=== PATIENT | female | born 1970 | race Caucasian/White ===

== ENCOUNTER → 2019-04-19 09:19 | Outpatient (CLI) | payer BC, SELFPAY ==
--- NOTE | 2019-04-19 09:20 | DI.US.S_ITS ---
PROCEDURE: US PERIPH VENOUS LOW EXTREM LT INDICATIONS: LEFT LOWER EXTREMITY EDEMA TECHNIQUE: Real-time imaging, as well as color and pulse Doppler interrogation, were performed of the lower extremity deep veins from the inguinal ligament to the popliteal fossa. COMPARISON: None. FINDINGS: The common femoral, femoral and popliteal veins are normally compressible, and free of intraluminal thrombus. Color and pulse Doppler demonstrate normal phasic intraluminal flow. There is normal augmentation response to distal compression maneuver. Medial ankle edema. Fluid collection at the level of the ankle measures 2.3x1.6 x 0.7 cm. IMPRESSION: No evidence of deep venous thrombosis. Nonspecific edema and fluid collection in the ankle soft tissues. Please correlate clinically and if the patient's pain or other symptoms persist, consider further evaluation with MRI Dictated by: Jose Fong M.D. on 04/19/2019 at 13:10 Approved by: Jose Fong M.D. on 04/19/2019 at 13:13
== END ==
PROVIDERS: PCP Internal Medicine; Visit Provider Physical Medicine & Rehabilitation
DX: R60.0 Localized edema (principal)
CPT/HCPCS: 93971

== ENCOUNTER → 2019-05-25 19:26 | Outpatient (CLI) | payer BC, SELFPAY ==
--- NOTE | 2019-05-25 19:30 | DI.RAD.S_ITS ---
PROCEDURE: XR ANKLE LT MIN 3V INDICATIONS: Left medial malleolus pain, ankle pain. TECHNIQUE: 3 views of the ankle were acquired. COMPARISON: [facility], CR, XR TIBIA FIBULA LEFT, 08/08/2018, 13:55. FINDINGS: Bones: No fractures or dislocations. Irregularity of the medial cortex of the distal fibular and lateral cortex of the distal tibia, suggesting old distal tibial fibular syndesmotic injury. Ankle mortise is normally aligned. No suspicious bony lesions. There is a large os trigonum. Posterior calcaneal spurring at the Achilles tendon insertion. Soft tissues: Small tibiotalar joint effusion. Achilles tendon appears normal. Soft tissue swelling. IMPRESSION: 1. No fracture or dislocation. If clinical symptoms persist or clinical suspicion for pathology is high, MRI is suggested for further evaluation. 2. Large os trigonum. 3. 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 Dictated by: Nehemiah Robertson M.D. on 05/25/2019 at 20:02 Approved by: Nehemiah Robertson M.D. on 05/25/2019 at 20:06
== END ==
PROVIDERS: PCP Internal Medicine; Visit Provider Nurse Practitioner
DX: M25.572 Pain in left ankle and joints of left foot (principal); R29.898 Other symptoms and signs involving the musculoskeletal system; M77.32 Calcaneal spur, left foot; M25.472 Effusion, left ankle
CPT/HCPCS: 73610

== ENCOUNTER → 2019-07-18 19:23 | Outpatient (CLI) | payer BC, SELFPAY ==
--- NOTE | 2019-07-18 19:25 | DI.MRI.S_ITS ---
PROCEDURE: MR ANKLE LT WO CON INDICATIONS: Pain and swelling TECHNIQUE: Noncontrast sagittal T1 spin echo and T2 fast spin echo with fat saturation, axial proton density fast spin echo and T2 fast spin echo with fat saturation, coronal T1 spin echo and T2 fast spin echo with fat saturation through the ankle/hindfoot. COMPARISON: None. FINDINGS: Image quality: Excellent. Bones and joints: Edema is noted throughout mid to posterior portion of talus and anterior superior portion of calcaneus. No discrete fracture line is seen. Finding likely represent bony contusion versus stress related changes. Osteoarthritic changes are noted involving tibiotalar joint and calcaneocuboid joint. No hindfoot coalitions. No osteochondral injuries of the talar dome. Small amount of joint effusion within the tibiotalar joint and subtalar joint is seen. No gross intra-articular loose body. Soft tissue edema surrounding ankle joint is seen particularly over medial and lateral malleoli. Medial structures: The posterior tibialis, flexor digitorum longus, and flexor hallucis longus tendons are thickened with a moderate to large amount of fluid distending tendon sheaths consistent with tenosynovitis. No evidence of tendon rupture. 1 cm possible intra-articular loose body in The posterior tibial neurovascular bundle appears normal within the tarsal tunnel, without extrinsic mass effect. Significant thickening and edema involving the deltoid ligament and spring ligament complex is seen suggestive of ligament sprain/partial thickness tear. Lateral structures: The anterior talofibular, calcaneofibular, and posterior talofibular ligaments appear mildly thickened suggestive of low-grade lateral ankle ligament sprain. More superiorly, the anterior and posterior tibiofibular ligaments appear intact, as is the intermalleolar ligament. The tibiofibular syndesmosis is normal in width at 2 mm or less. The peroneus longus and brevis tendons demonstrate normal location and morphology. Adjacent bony peroneal tubercle and retrotrochlear prominence are normal in size. The sinus tarsi demonstrates normal fatty signal, without edema, fibrosis, or cyst formation. Visualized sinus tarsi components (cervical ligament, interosseous talocalcaneal ligament, roots of the inferior extensor retinaculum) appear normal. The calcaneonavicular and calcaneocuboid components of the bifurcate ligament appear intact. The dorsal calcaneocuboid ligament appears intact. Anterior structures: The tibialis anterior, extensor hallucis longus, and extensor digitorum longus tendons appear intact. The dorsal talonavicular ligament appears intact. Posterior and plantar structures: Achilles tendon is intact. Medial and lateral bands of the plantar fascia are of normal thickness. No abductor digiti quinti muscle atrophy to suggest Soto neuropathy. IMPRESSION: 1. Significant soft tissue swelling and edema around ankle joint. Suggestion of bony contusion versus stress related changes involving talus and calcaneus as above. No fracture or dislocation. 2. Moderate tenosynovitis involving the flexor tendons with possible loose body posterior to flexor digitorum longus tendon possibly within the tendon sheath. No evidence of ankle tendon rupture. 3. Sprain/moderate grade partial-thickness tear involving medial ankle ligaments. Low-grade sprain/partial thickness tear involving lateral ankle ligaments. Dictated by: Ben Abdullahi M.D. on 07/19/2019 at 11:03 Approved by: Ben Abdullahi M.D. on 07/19/2019 at 12:03
--- NOTE | 2019-07-18 19:25 | DI.MRI.S_ITS ---
PROCEDURE: MR KNEE LT WO CON INDICATIONS: Pain and swelling TECHNIQUE: Noncontrast sagittal PD fast spin echo and T2 fast spin echo with fat saturation, sagittal 3-D FLASH with fat saturation; coronal T1 spin echo and PD fast spin echo with fat saturation, and axial PD fast spin echo with fat saturation through the knee. COMPARISON: None. FINDINGS: Image quality: Excellent. Menisci: Medial meniscus intact. Lateral meniscus intact. Cruciate ligaments: Anterior cruciate ligament appears intact. Posterior cruciate ligament appears intact. Medial structures: The medial collateral ligament appears intact. Semimembranosus tendon appears intact. Visualized portions of the pes anserinus tendons appear normal. No abnormal bursal fluid. Lateral structures: The lateral collateral ligament intact. Biceps femoris tendon appears intact. Popliteus tendon grossly unremarkable. Iliotibial band appears intact. Anterior structures: Quadriceps tendon intact. Medial and lateral patellofemoral ligaments intact. There is mild patellar tendinopathy. Prepatellar and superficial infrapatellar subcutaneous edema/fluid. Fluid is present within the deep infrapatellar recess Bones and cartilage: No focal marrow contusion or discrete low signal fracture line. Within the medial compartment, no focal cartilage defect Within the lateral compartment, fissuring and signal changes involving central tibial cartilage. Femoral cartilage appears grossly intact Within the patellofemoral compartment, diffuse partial-thickness loss of the patellar cartilage. Underlying subchondral cystic change and marrow edema. No focal trochlear cartilage defect. Joint space: Small joint effusion. Large partially ruptured Zamora cyst measuring 5.5 cm in the cephalocaudad dimension No specific evidence of intra-articular loose body. IMPRESSION: Large partially ruptured Zamora's cyst. Small joint effusion Patellar tendinopathy with adjacent fluid and edema Degenerative joint disease as above, most pronounced in the patellofemoral compartment Dictated by: Jose Fong M.D. on 07/19/2019 at 8:46 Approved by: Jose Fong M.D. on 07/19/2019 at 9:00
--- NOTE | 2019-07-18 19:25 | DI.MRI.S_ITS ---
PROCEDURE: MR LUMBAR SPINE WO CON INDICATIONS: umbar radiculopathy TECHNIQUE: Noncontrast sagittal T1 spin echo and T2 fast echo, sagittal STIR, axial T1 and T2 fast spin echo through the lumbar spine. In cases with scoliosis, additional coronal T2 fast spin echo may be performed. COMPARISON: None. FINDINGS: Image quality: Excellent. Alignment and Curvature: There is normal bony alignment. Bone Marrow: Marrow is of normal overall signal. No acute vertebral body compression fractures. Spinal Cord: Conus medullaris terminates at the L1 level. Visualized cord demonstrates normal signal and size. Paraspinous Soft Tissues: No paravertebral masses. L1-L2: Normal appearance. L2-L3: Normal appearance except for a mild degree of degenerative disc height reduction and a small posterior transverse disc bulge. This does not produce significant spinal stenosis, and there is facet osteoarthritis there is symmetric bilaterally and mild in severity, without secondary foraminal stenosis.. L3-L4: Mild to moderate degenerative disc disease, disc height reduction and disc desiccation are greater on the right than the left. A posterior disc bulge also is greater on the right, and facet osteoarthritis is moderate bilaterally. These factors combine to produce a moderately severe right and a mild left foraminal stenosis, and slight spinal stenosis. A disc herniation is not associated. L4-L5: Moderately severe degenerative disc disease with a posterior broad-based transverse disc bulge/protrusion. There is asymmetric facet osteoarthritis, left greater than right, at this level. This combines with a disc protrusion to produce moderately severe left and mild to moderate right foraminal stenosis. L5-S1: Mild degenerative disc disease with a small posterior broad-based disc bulge. Facet osteoarthritis is moderate on the left and mild to moderate on the right. There is asymmetric moderate left foraminal stenosis, and mild right foraminal stenosis at this level. IMPRESSION: The degenerative disc disease present is moderate in severity overall, and best seen over the lower half of the LS spine. Multilevel foraminal stenosis also is present, generally asymmetric, with likelihood of bilateral radiculopathy has resolved. A disc herniation is not found. No recent trauma is suspected. Dictated by: Layton Ortiz M.D. on 07/19/2019 at 12:38 Approved by: Layton Ortiz M.D. on 07/19/2019 at 12:45
== END ==
PROVIDERS: PCP Internal Medicine; Referring Provider Physical Medicine & Rehabilitation; Visit Provider Physical Medicine & Rehabilitation
DX: M51.16 Intervertebral disc disorders with radiculopathy, lumbar region (principal); M51.17 Intervertebral disc disorders with radiculopathy, lumbosacral region; M48.061 Spinal stenosis, lumbar region without neurogenic claudication; M48.07 Spinal stenosis, lumbosacral region; S93.492A Sprain of other ligament of left ankle, initial encounter; M25.572 Pain in left ankle and joints of left foot; M79.672 Pain in left foot; M25.562 Pain in left knee; M17.12 Unilateral primary osteoarthritis, left knee; M66.0 Rupture of popliteal cyst; M25.462 Effusion, left knee; M25.472 Effusion, left ankle; M79.89 Other specified soft tissue disorders; M65.872 Other synovitis and tenosynovitis, left ankle and foot
CPT/HCPCS: 72148; 73721

== ENCOUNTER 2019-07-26 02:37 | Emergency (ER) | payer BC, SELFPAY ==
[2019-07-26 02:57] VITALS: BP 137/92; PULSE 96; RESP 19; TEMP 37.1; O2SAT 100; BMI 28.8
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
[2019-07-26] MEDS: hydrOXYzine pamoate 25 MG CAPSULE 50 MG PO (03:19)
[2019-07-26] MEDS: KETOROLAC 60 MG/2 ML VIAL 30 MG IM (03:19)
[2019-07-26] MEDS: GABAPENTIN 100 MG CAPSULE PO (03:19)
[2019-07-26 04:54] VITALS: BP 125/78; PULSE 86; RESP 15; O2SAT 97
== END 2019-07-26 04:56 | disposition home or self-care (01) ==
PROVIDERS: Emergency Provider Emergency Medicine; PCP Internal Medicine
DX: M66.0 Rupture of popliteal cyst (principal); G62.9 Polyneuropathy, unspecified; M25.572 Pain in left ankle and joints of left foot
CPT/HCPCS: 96372; 99283; 99284; J1885

== ENCOUNTER → 2019-08-07 06:56 | Outpatient (CLI) | payer BC, SELFPAY ==
--- NOTE | 2019-08-07 | DI.MRI.S_ITS ---
PROCEDURE: MR ANKLE LT WO/W CON INDICATIONS: MASS OF LEFT ANKLE TECHNIQUE: Noncontrast sagittal T1 spin echo and T2 fast spin echo with fat saturation, axial proton density fast spin echo and T2 fast spin echo with fat saturation, axial T1 spin echo with fat saturation, coronal T1 spin echo and T2 fast spin echo with fat saturation through the ankle/hindfoot. Post-contrast axial, coronal, and sagittal T1 spin echo with fat saturation through the ankle/hindfoot. COMPARISON: None. FINDINGS: Image quality: Excellent. Bones and joints: No suspicious osseous enhancement. No bone marrow contusions or fractures. No hindfoot coalitions. No osteochondral injuries of the talar dome. Small tibiotalar joint effusion. Prominent os trigonum incidentally noted Medial structures: The posterior tibialis, flexor digitorum longus, and flexor hallucis longus tendons are intact. Deep to the flexor retinaculum, there is a large cystic appearing structure with no internal enhancement measuring approximately 1.7 x 1.4 cm on axial image 31 series 4. This is in close proximity to the posterior tibial nerve and cannot exclude impingement. The deep layer (anterior and posterior tibiotalar ligaments) and superficial layer (tibionavicular, tibiospring, and tibiocalcaneal ligaments) of the deltoid ligament appear normal. The spring ligament components (superomedial calcaneonavicular, medioplantar oblique calcaneonavicular, and inferoplantar longitudinal ligaments) are intact. Lateral structures: The anterior talofibular, calcaneofibular, and posterior talofibular ligaments appear intact. More superiorly, the anterior and posterior tibiofibular ligaments appear intact, as is the intermalleolar ligament. The tibiofibular syndesmosis is normal in width at 2 mm or less. The peroneus longus and brevis tendons demonstrate normal location and morphology. Adjacent bony peroneal tubercle and retrotrochlear prominence are normal in size. The sinus tarsi loss of the normal normal fatty signal and a normal sinus tarsi structures not well visualized. There is T2 hyperintensity and edema, and findings suggest sinus tarsi syndrome. Mild adjacent subtalar joint degeneration. Anterior structures: The tibialis anterior, extensor hallucis longus, and extensor digitorum longus tendons appear intact. The dorsal talonavicular ligament appears intact. Posterior and plantar structures: Achilles tendon is intact. Medial and lateral bands of the plantar fascia are of normal thickness. No abductor digiti quinti muscle atrophy to suggest Soto neuropathy. IMPRESSION: Nonenhancing cystic-appearing 1.7 cm mass at the medial ankle deep to the flexor retinaculum, this could represent large synovial cyst related to subtalar joint degeneration, versus ganglion cyst. The posterior tibial nerve closely abuts the posterior margin of the structure and cannot exclude impingement. This is in the region of the bifurcation. Mild edema present within the abductor hallucis, and flexor digitorum brevis muscles raising possibility of denervation (medial plantar nerve). No definite muscle atrophy is seen. Signal changes within the sinus tarsi suggestive of sinus tarsi syndrome. Small tibiotalar joint effusion Dictated by: Jose Fong M.D. on 08/07/2019 at 10:06 Approved by: Jose Fong M.D. on 08/07/2019 at 10:26
== END ==
PROVIDERS: PCP Internal Medicine; Referring Provider Orthopaedic Surgery Foot and Ankle Surgery; Visit Provider Orthopaedic Surgery Foot and Ankle Surgery
DX: R22.42 Localized swelling, mass and lump, left lower limb (principal)
CPT/HCPCS: 73723

== ENCOUNTER 2019-08-08 07:55 | Day surgery (SDC) | payer BC, SELFPAY ==
[2019-08-07 14:52] VITALS: BMI 31.9
[2019-08-08] VITALS (11 sets, daily range): BP systolic 109–142; BP diastolic 67–83; PULSE 77–98; RESP 8–16; TEMP 35.6–36.8; O2SAT 90–98; BMI 31.9
--- NOTE | 2019-08-08 | PATH_ITS ---
[facility] Accession Number: [id number] . 01 Material submitted: . ganglion cyst - LEFT ANKLE GANGLION CYST . 01 Diagnosis: Left Ankle, Biopsy: Ganglion cyst. [facility] 08/13/2019 1614 Local . 01 Comment: Colloidal iron stain highlights with positive staining the mucin accummulation. This case was reviewed with Dr. Cheyanne Romero, who concurs. . 01 Electronically signed: . Mariela Stanley MD, Dermatopathologist NPI- [id number] . 01 Gross description: . Received in formalin, labeled L ankle ganglion cyst, is a pale yellow rubbery nodule (1.5 x 1.4 x 1.0 cm) with a pale yellow semi-translucent cystic cut surface. The resection margin is inked blue. Manager [employer] serial sections submitted in cassette A1. ([id number]) /MRV 08/09/2019 1204 Local . 01 Pathologist provided ICD-10: L98.9 . 01 CPT . 216764, [id number] Performed at: [address] [facility], [place], [place] [id number] MD Fred Grant MD Phone: [phone]
--- NOTE | 2019-08-08 08:48 | P.OP_ITS ---
Operative Date/Time/Diagnoses Date of procedure: 08/08/19 Time of procedure: 10:35 Pre-op diagnosis: Tarsal tunnel syndrome left G57.52 Mass of left ankle R22.42 Post-op diagnosis: same Procedure & Clinicians Procedure: 1. Tarsal tunnel release left CPT code 38340 2. Excision subfascial mass less than 5 cm left ankle CPT code 17923 Same procedure as scheduled: Yes Indications: The patient is a 48-year-old female with left ankle and medial and plantar foot pain nonresponsive to conservative treatment. Patient also has a swelling and mass in the location of the tarsal tunnel. This was evaluated on MRI with and without contrast was a nonenhancing cystic appearaning approximately 2 cm mass at the medial ankle deep to the flexor retinaculum abutting the posterior tibial nerve. The patient was indicated for excisional biopsy of the mass and decompression of the tarsal tunnel. The risks and benefits and alternatives were discussed in detail. These included but were not limited to infection, persistent pain, DVT, pulmonary embolism, nerve vessel or tendon injury or need for additional procedures. Consent was signed in the of fice. No guarantees were made. We discussed postoperatively she would be nonweightbearing for the initial 2-3 weeks while the incision is healing. This would 1st be in a splint and then followed by a boot. She would start weight- bearing once the sutures are removed and would start therapy. Postoperatively pain control would be primarily with anti-inflammatories a small narcotic prescription for breakthrough pain and gabapentin. Discussed the importance of elevation for the 1st 2 weeks after surgery to aid with swelling and pain control. Surgeon: Marjorie Hutchinson Click Yes if Unassisted: Yes Anesthesia Type: General and Local Operative Notes Findings: Approximately 1.5x1.5cm mass well circumscribed, multi lobe, clear gelatinous fluid consistent with ganglion cyst. Track down to medial subtalar joint Closure Type: primary Specimen(s): other (Mass sent to pathology) Prosthetic devices, grafts, tissues, transplants, or devices: None Applied: other (Splint) Estimated Blood Loss (mL): 10 Blood products transfused: none Tourniquet time (min): 56 Procedure in detail: The patient was seen in the preoperative area the site of surgery was marked. After confirming written informed consent the patient was taken to the operating room and placed supine on operating room table. General endotracheal anesthesia was obtained. A tourniquet was placed on the upper aspect of the thigh and this was well-padded. All bony prominences were well padded. An SCD was placed on the contralateral leg. Patient's operative leg was then prepped and draped in the standard sterile fashion. A formal time-out procedure was performed confirming the patient's side and site of surgery and administration of appropriate preoperative antibiotics. All were in agreement. Exsanguination with an Esmarch was undertaken the tourniquet was inflated to 250 mm of mercury. That time attention was directed to the medial aspect of the left ankle in the tarsal tunnel. Midpoint between the border of the medial malleolus and the medial border of the Achilles tendon was marked. Medial edge of the heel at the soft spot was palpated and marked. The incision was marked over the skin for the course of the tibial nerve. This started approximately 4 cm proximal to the medial malleolus and extended distally approximately 1 cm posterior to the tibia. Distally at the level of the medial malleolus the incision curved anteriorly and then plantar to the soft spot. Sharp dissection was taken through the skin. The incision was carefully deepened bluntly through the subcutaneous tissues to expose the Bill fashion the flexor retinaculum. Dissection was focused proximally 1st. Under loupe magnification, the Bill fascia was opened. Tibial nerve was identified and followed as it coursed under the flexor retinaculum. The neurovascular bundle was identified and protected. The nerve was decompressed proximally and distally with care to protect the cutaneous branches. The posterior tibial nerve proper just proximal to the level of the bifurcation was flattened against the posterior edge of the ganglion cyst. Additionally the medial plantar branch was flattened distally under the mass as the bifurcation point lead with the medial plantar branch diving under the ganglion mass into its distal tunnel. Calcaneal branch was identified and protected. Superficial fascia of the abductor hallucis muscle was released and the muscle was retracted exposing the deep abductor hallucis fascia over the lateral plantar tunnel. This was carefully released completely. Attention was turned to decompress the medial plantar tunnel and its roof was released and the septum between the lateral and medial plantar nerve was identified and released. [place] elevator was again used to follow the tibial nerve and the branches confirming complete nerve decompression. Mass excision: Approximately 2 cm multi lobular mass consistent with ganglion cyst was demonstrated just distal to the medial malleolus within the tarsal tunnel. The posterior tibial nerve immediately abutted this posteriorly and then this was at the bifurcation point where the medial plantar nerve branch dove under the ganglion mass to its trajectory. A therefore there was flattening and pressure affects on the tibial nerve at both the main posterior tibial nerve branch at the bifurcation posteriorly and at the medial plantar branch distally. Meticulous dissection was taken to decompress and release adhesions from the tibial nerve around the ganglion cyst. Domenico amount of gelatinous fluid was expressed from the cyst during excision. The cyst was carefully from the surrounding soft tissues and traced back down to the stalk from the medial subtalar joint. This was then removed. The removed mass was measured was approximately 1.5 x 1.5 cm however this was larger in situ prior to partial decompression decompression. Additionally the tendon sheath for the deep FHL distally was released and tenosynovitis was decompressed. Once the mass was removed the remainder of the medial plantar and lateral plantar nerve branches of the tibial nerve were fully decompressed in their tunnels. Again as described above the abductor hallucis fascia was released and the septum between the medial and lateral plantar tunnels was also decompressed. Complete release was completed. Once this was completed the incision was irrigated with saline. The tourniquet was released. Hemostasis was obtained. The incision was then repaired in layers using 4 0 Monocryl and 3 O nylon. The incision was infiltrated with local anesthetic. Xeroform gauze was placed. A bulky dressing and posterior splint was then applied. All counts were correct. The patient was woken from anesthesia and taken to recovery room in good condition. There were no immediate complications from this procedure. Complications: none Post-operative Condition: stable Disposition: PACU Plan for aftercare: Nonweightbearing in splint 2-3 weeks well incision is healing. Take aspirin 325 mg daily for DVT prophylaxis starting postop day 1 while she is nonweightbearing. Postoperative pain control was be with ibuprofen 800 mg 3 times a day Tylenol 500 mg Q 6 hours, oxycodone 5 mg up to Q 4 hours but only used for breakthrough pain and gabapentin 300 mg t.i.d.. She will keep the splint clean dry and intact. Follow-up as scheduled
[2019-08-08] MEDS: ACETAMINOPHEN 325 MG TABLET 975 MG PO (08:57)
[2019-08-08] MEDS: SCOPOLAMINE 1 PATCH TOP (08:58)
[2019-08-08] MEDS: LACTATED RINGERS 1,000 ML 42 ML IV ×2 (09:00→11:55)
[2019-08-08] MEDS: GABAPENTIN 300 MG CAPSULE PO (10:12)
[2019-08-08] MEDS: MIDAZOLAM 2 MG/2 ML VIAL IV (10:12)
--- NOTE | 2019-08-08 10:13 | SUR.PREOP ---
PT REPORTS OK TO HAVE GABAPENTIN, JUST MAKES ME NG. PT TAKEN DIRECTLY INTO THE OR AFTER IV VERSED GIVEN. PT ALERT AND TALKING TO RN.
[2019-08-08] MEDS: CEFAZOLIN 2 GM/100 ML FROZ.PIGGY IV (10:17)
--- NOTE | 2019-08-08 10:41 | SUR.OPER ---
Supine on padded OR bed, head on pillow, arms secured on padded arm boards at <90 degrees abduction, legs uncrossed, left leg is in frog position, bumped with blankets and under control of surgeon, safety belt at thigh, tape over blanket over right lower leg.
[2019-08-08] MEDS: BUPIVACAINE 0.25% W/ EPI 30 ML VIAL INJ (10:51)
[2019-08-08] MEDS: hydrOXYzine pamoate 25 MG CAPSULE PO (12:23)
[2019-08-08] MEDS: OXYCODONE IR 5 MG TABLET PO (12:23)
--- NOTE | 2019-08-08 12:27 | PM.PREOP ---
Pre-operative Note Interval Note History & Physical reviewed/Exam performed by Physician: Yes Changes to H&P: No H&P completed within 30 days and has changed as indicated here:: later enter please not full H&P done less than 24 hrs ago in clinic as well
--- NOTE | 2019-08-08 12:43 | SUR.PHASEI ---
Patient cannot feel when I touch operative foot. Gave patient oral pain medication for c/o 7/10 pain to operative foot. Tolerating po. Patient started crying in recovery and requested curtains closed.
--- NOTE | 2019-08-08 13:23 | SUR.PHASEII ---
Discharge instructions given to patient and family. Patient anxious and tearful. Advised patient to take her pain medication as directed and to elevate leg at home. Pointed out the specific instructions to patient via paperwork provided by Dr Hutchinson. Tolerating gingerale without difficulty.
--- NOTE | 2019-08-08 13:29 | SUR.PHASEII ---
All belongings returned to patient. RIBBON HANKING MACHINE OPERATOR assisting patient with getting dressed for discharge.
== END 2019-08-08 13:30 | disposition home or self-care (01) ==
PROVIDERS: PCP Internal Medicine; Referring Provider Internal Medicine; Visit Provider Orthopaedic Surgery Foot and Ankle Surgery
PROC: (CPT 28035; principal; 2019-08-08 09:45)
DX: G57.52 Tarsal tunnel syndrome, left lower limb (principal); M67.472 Ganglion, left ankle and foot; F41.9 Anxiety disorder, unspecified; F17.210 Nicotine dependence, cigarettes, uncomplicated
CPT/HCPCS: 27619; 28035; J0690; J1100; J1170; J1885; J2250; J2405; J2704

== ENCOUNTER 2019-08-17 15:26 | Emergency (ER) | payer BC, SELFPAY ==
--- NOTE | 2019-08-17 15:41 | DI.US.S_ITS ---
PROCEDURE: PERIP VENOUS LOW EXTREM LT INDICATIONS: LEFT CALF PAIN. SURGERY 2 WEEKS AGO TECHNIQUE: Real-time imaging, as well as color and pulse Doppler interrogation, were performed of the lower extremity deep veins from the inguinal ligament to the popliteal fossa. COMPARISON: [facility], , [facility] VENOUS LOW EXTREM LT, 04/19/2019, 9:31. FINDINGS: The common femoral, femoral and popliteal veins are normally compressible, and free of intraluminal thrombus. Color and pulse Doppler demonstrate normal phasic intraluminal flow. There is normal augmentation response to distal compression maneuver. IMPRESSION: No DVT found. Dictated by: Layton Ortiz M.D. on 08/17/2019 at 16:43 Approved by: Layton Ortiz M.D. on 08/17/2019 at 16:44
[2019-08-17 15:49] VITALS: BP 135/73; PULSE 88; RESP 18; TEMP 36.6; O2SAT 97; BMI 32.2
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
[2019-08-17 17:09] VITALS: BP 108/61; PULSE 75; RESP 16; O2SAT 98
== END 2019-08-17 17:21 | disposition home or self-care (01) ==
PROVIDERS: Emergency Provider Nurse Practitioner Family; PCP Internal Medicine
DX: M79.605 Pain in left leg (principal); Z98.890 Other specified postprocedural states
CPT/HCPCS: 93971; 99283

== ENCOUNTER 2019-09-02 18:42 | Emergency (ER) | payer BC, SELFPAY ==
[2019-09-02 18:53] VITALS: BP 133/68; PULSE 88; RESP 14; TEMP 36.8; O2SAT 98
[2019-09-02 19:37] LABS: Add Manual Diff / Slide Review NO; Basophils Absolute Auto 100 /uL (0-100); Eosinophils Absolute Auto 100 /uL (0-450); Eosinophils Percent Auto 1.3 % (2-4); Lymphocytes Absolute Auto 1900 /uL (1100-4500); Lymphocytes Percent Auto 34.6 % (25-40); Mean Corpuscular HGB Conc 33.3 % (30-36); Mean Corpuscular Hemoglobin 29.8 PG (26-34); Mean Corpuscular Volume 89.4 fL (80-100); Monocytes Absolute Auto 400 /uL (0-900); Monocytes Percent Auto 6.7 % (3-14); Neutrophils Absolute Auto 3200 /uL (1500-7000); Neutrophils Percent Auto 56.4 % (50-75); Platelet Count 352 X10^3/uL (150-400); Red Blood Cell Count 3.69 X10^6/uL (4.0-5.2); Red Cell Distribution Width 13.7 % (11.6-14.8); White Blood Cell Count 5.6 X10^3/uL (4.5-11.0)
[2019-09-02 19:57] LABS: Alanine Aminotransferase 24 IU/L (<35); Albumin 4.3 g/dL (3.5-5.0); Albumin Globulin Ratio 1.4 (1.0-2.8); Alkaline Phosphatase 71 U/L (38-126); Aspartate Aminotransferase 29 IU/L (14-36); BUN Creatinine Ratio 19.5 (6-22); Bilirubin Total 0.3 mg/dL (0.2-1.3); Blood Urea Nitrogen 15 mg/dL (7-17); Calcium 9.2 mg/dL (8.4-10.2); Carbon Dioxide 28 mmol/L (22-32); Chloride 103 mmol/L (98-107); Estimated Glomerular Filt Rate > 60.0 mL/min (>60); Glucose 95 mg/dL (70-100); HEMOLYSIS < 15 (0-50); Potassium 3.9 mmol/L (3.4-5.1); Sodium 138 mmol/L (137-145); Total Protein 7.3 g/dL (6.3-8.2)
[2019-09-02 20:00] LABS: C-Reactive Protein Quant < 0.5 mg/dL (<1.0)
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
[2019-09-02 20:16] LABS: Erythrocyte Sedimentation Rate 8 MM/HR (0-20)
[2019-09-02 20:49] VITALS: BP 116/72; PULSE 73; RESP 20; O2SAT 97
== END 2019-09-02 21:04 | disposition home or self-care (01) ==
PROVIDERS: Emergency Provider Nurse Practitioner Family; PCP Internal Medicine
DX: T81.40XA Infection following a procedure, unspecified, initial encounter (principal)
CPT/HCPCS: 36415; 80053; 83735; 85025; 85651; 86140; 87070; 87075; 87205; 99282; 99283

== ENCOUNTER 2019-09-04 14:54 | Inpatient (IN) | payer BC, SELFPAY ==
[2019-09-04] VITALS (15 sets, daily range): BP systolic 94–140; BP diastolic 43–75; PULSE 71–83; RESP 12–20; TEMP 36.2–37.2; O2SAT 14–98; BMI 35.3
--- NOTE | 2019-09-04 15:13 | PM.PREOP ---
Pre-operative Note Interval Note History & Physical reviewed/Exam performed by Physician: Yes Changes to H&P: No
[2019-09-04] MEDS: LACTATED RINGERS 1,000 ML 42 ML IV ×2 (15:15→18:00)
[2019-09-04] MEDS: GABAPENTIN 300 MG CAPSULE PO (15:19)
[2019-09-04] MEDS: ACETAMINOPHEN 325 MG TABLET 975 MG PO ×2 (15:19→20:45)
[2019-09-04] MEDS: OXYCODONE IR 5 MG TABLET PO ×3 (15:19→19:36)
--- NOTE | 2019-09-04 15:37 | P.OP_ITS ---
Operative Date/Time/Diagnoses Date of procedure: 09/04/19 Time of procedure: 15:57 Pre-op diagnosis: Dehiscence surgical wound left ankle Surgical site infection Post-op diagnosis: other (Dehiscence surgical wound left ankle, hematoma) Procedure & Clinicians Procedure: Irrigation debridement skin muscle fascia 20 sq cm or less, left ankle CPT code 65771 Application wound VAC sponge cpt 06885 Same procedure as scheduled: Yes Indications: Patient has wound dehiscence and epidermolysis around her surgical site and incision she has swelling and erythema consistent with likely site infection. She has had approximately 3 days oral antibiotics with persistent swelling. She has been indicated for operative debridement irrigation and miriam cement of wound VAC. She has been counseled on the risks benefits and alternatives to treatment. Risks benefits and alternatives were explained to the patient detail including but not limited to a recurrent infection need for additional procedures and debridements need for serial wound debridements for wound VAC changes or wound care, persistent pain, additional wound healing problems, DVT pulmonary embolism stroke paralysis . The patient has elected to proceed with surgery. Consent was signed in the office today. Plan will be for operative debridement admit for IV antibiotics and transition to outpatient wound care likely with home wound VAC. Surgeon: Marjorie Hutchinson Click Yes if Unassisted: Yes Anesthesia Type: General Operative Notes Findings: Medial ankle surgical incision with wound dehiscence and wound edge epidermolysis and necrosis. There is scant then drainage distally. No gross purulence but, significant devitalized wound edges and dehiscence with small amount of erythema at the incision margins mild swelling. No ascending cellulitis. Once wound is reopened there is well-formed/coagulated old hematoma evacuated. Incisions site measures approximately 8 cm Closure Type: non-primary Specimen(s): other (Deep Tissue for culture) Applied: other (Wound VAC sponge) Estimated Blood Loss (mL): 10 Blood products transfused: none Tourniquet time (min): 12 Procedure in detail: Patient was seen in the preoperative area the site of surgery was marked informed consent confirmed. Patient was then brought back to the operating room by the anesthesia team. Patient under went endotracheal intubation under the strict airborne precautions given the covid 19 pandemic (this patient does not have symptoms or a known positive or negative test). Once the established protocol amount of time was waited the remainder of the staff entered the room, All bony prominences were well padded. A well-padded thigh tourniquet was placed. Surgical site was prepped and draped in the standard sterile fashion. Formal time-out procedure was performed confirming the patient's side and site of surgery presence of informed consent. In this case preoperative antibiotics were administered at the patient had been on antibiotics outpatient as well and had a pre-existing a culture pending. Attention was turned to the left lower extremity. [place] exsanguination was utilized and the tourniquet on the thigh raised to 250 mm of mercury this stayed elevated for 12 minutes was let down debridement hemostasis was achieved with pressure no cautery was used.. The surgical site was inspected there was the medial incision with wound edge necrosis devitalized tissue with dehiscence primarily at the distal half. There is no gross purulence. There is minimal erythema at the wound edges and mild swelling. There is no ascending cellulitis. Was congealed hematoma in the wound was evacuated. No purulence or abscess was found. Deep tissue and cultures were obtained and sent for microbiology. Wound edges were debrided back to good bleeding tissue. Curettes and rongeurs were used. All non vitalized tissue was debrided. No obvious abscess or purulence was encountered. Wound was irrigated with 3 L normal saline with pulsatile lavage. Utilizing gentle pressure from the hands it was noted that the proximal 3/4 of the incision approximated quite easily and was thought to be amenable to primary closure. A 2 0 PDS suture was attempted but cut through the tissue easily therefore this layer was abandoned. 3 O nylon sutures were placed in a trauma suture fashion to approximate the proximal 3/4 of the incision. In between these 2 O and 3 0 nylons were placed in simple and vertical mattress fashion approximating the wound without tension and no blanching of the skin edges. The distal 2 cm of the wound was a circular area that was not amenable to primary closure. Decision was made for wound VAC use at the distal end. Once thorough proximal part of the incision was closed the 3 trauma touch style sutures were removed. The incision remained well approximated without excess tension. Attention was turned to the distal aspect of the wound this measured 2 cm x 1 cm x 1 cm Deep. The small wound VAC sponge was opened. Wound VAC sponge was placed within the open part of the wound. Adaptic was placed over the closed part of the incision and then the wound sponge was stretched over the Adaptic for incisional VAC over the closed aspect of the incision. The periwound area was lined with Mastisol and the dressing film. And the wound VAC application was completed. This was hooked up to the VAC and suction to 125 mm of mercury was obtained. Suction was obtained with a good seal. A padded dressing was applied. Surgical procedure finished and the surgical staff exited the room. Anesthetic was terminated and again the airborne precaution extubation procedure was completed. Patient was then recovered in the room and taken to the PACU following the protocol in good condition. There no immediate complications from this procedure. Complications: none Post-operative Condition: stable Disposition: Acute Care Plan for aftercare: Admit to inpatient for IV antibiotics and treatment with wound VAC. Will have scheduled IV antibiotics. Will await cultures. Based on the operative appearance problem appeared primarily to be hematoma and wound dehiscence if cultures remain negative will discontinue or DC on oral antibiotics. Will get wound care consult. Plan to transition to outpatient home VAC with continued care at [facility]. Will tailor antibiotics based on cultures.
[2019-09-04] MEDS: CEFAZOLIN 2 GM/100 ML FROZ.PIGGY IV (16:09)
--- NOTE | 2019-09-04 16:27 | SUR.OPER ---
Supine on padded OR bed, head on pillow, arms secured on padded arm boards at <90 degrees abduction, legs uncrossed, safety belt at thigh, tape over blanket over lower legs.
[2019-09-04] MEDS: BUPIVACAINE 0.25% W/ EPI 30 ML VIAL INJ (16:33)
[2019-09-04] MEDS: fentaNYL 100 MCG/2 ML INJ IV ×6 (17:40→18:10)
--- NOTE | 2019-09-04 17:58 | PM.PNPO.1 ---
Subjective Subjective Date Patient Seen: 09/04/19 Time Patient Seen: 17:58 Interval history: Postop day 0 left ankle wound dehiscence, hematoma surgical site Status post decompression wound debridement and closure and VAC placement. Exam Vital Signs (past 8 hours): - 09/04/19 15:23 09/04/19 17:40 09/04/19 17:45 Temperature 98.9 F 98.5 F Pulse Rate 81 78 79 Respiratory Rate 20 13 13 Blood Pressure 119/72 119/57 L 110/69 Pulse Oximetry 97 94 96 Oxygen Delivery Method Room Air Assessment & Plan Post-op Postoperative Procedures: Procedures Operation Date: 09/04/19 15:15 Actual Procedures Side Surgeon p Irrigation debridement poss. wound vac application ankle and foot surgical site infection and dehiscence Left Marjorie Hutchinson MD Plan is in Hospital wound Care consult with Rachel Wayne to initiate outpatient home VAC set up. Once refer to outpatient wound care upon discharge. Goal would be discharge with home back on (versus discharge to wound Center on ) if home VAC applied in hospital then follow up with wound care on the following Tuesday. Follow up wound cultures: If no growth, then we will discharge on 10 days Keflex and doxycycline for empiric coverage. If cultures grow would consider longer IV course. On empiric vancomycin while awaiting cultures Previous culture from ER with no growth. Proximal 3/4 of incision was closed with sutures these will remain 3-4 weeks. Distal 2 cm of incision is where open area with wound VAC sponge is --then sponges doubled back over Adaptic as an incisional VAC over the rest of the incision. Measurements of open part of the wound are 2 cm x 1 cm x 1 cm. Closed incision measures 6cm. Spoke with Sulma at [facility] regarding this patient and inpatient consultation plans. Quality VTE Deep Vein Thrombosis/Pulmonary Embolism Present on Admission: No
[2019-09-04] MEDS: HYDROMORPHONE 0.5 MG INJ 0.2 MG IV ×2 (19:21→23:44)
[2019-09-04] MEDS: LACTATED RINGERS 1,000 ML 75 ML IV (19:26)
[2019-09-04] MEDS: IBUPROFEN 400 MG TABLET 800 MG PO (19:26)
[2019-09-04 20:24] LABS: BUN Creatinine Ratio 17.5 (6-22); Blood Urea Nitrogen 11 mg/dL (7-17); Carbon Dioxide 24 mmol/L (22-32); Chloride 105 mmol/L (98-107); Estimated Glomerular Filt Rate > 60.0 mL/min (>60); Glucose 158 mg/dL (70-100); HEMOLYSIS < 15 (0-50); Potassium 3.9 mmol/L (3.4-5.1); Sodium 137 mmol/L (137-145)
[2019-09-04] MEDS: GABAPENTIN 600 MG TABLET PO (20:45)
[2019-09-04] MEDS: VANCOMYCIN 1,500 MG/300 ML FROZ.PIGGY 200 MG IV (20:45)
--- NOTE | 2019-09-04 21:59 | PC.NURSE ---
arrived in AC c/o pain 01/06. medicated pt with dilaudid. pain was still 02/06, gave additional 5mg oxycodone and ibuprophen. ice pack applied. LLE elevated. wound vac set to 125mmHg. Oriented pt to the room. ambulated to the [facility], partial wt bearing. pt ate some dinner. call light in reach. bed alarm active.
[2019-09-04] MEDS: OXYCODONE IR 10 MG TABLET PO (22:21)
[2019-09-05] MEDS: HYDROMORPHONE 0.5 MG INJ 0.2 MG IV ×8 (00:59→21:56)
--- NOTE | 2019-09-05 02:10 | PC.NURSE ---
Addendum entered by Concetta Samson R.N. 09/05/19 06:14: Pain this morning reported to be 7/10; medicated with Oxycodone, foot elevated on pillow and ice packs applied. Addendum entered by Concetta Samson R.N. 09/05/19 04:13: Awoken by pain. States pain is a constant roar at 5/10 with bursts of shooting pain with 8/10 severity; medication with Dilaudid Addendum entered by Concetta Samson R.N. 09/05/19 02:47: States pain woke her up; rates severity as 10/10; medicated with Oxycodone rather than Dilaudid per her request. Original Note: Patient seen and assessed at 2340. Is alert and oriented. Breath sounds CTA with RA sat of 97%. HRR. Denies nausea. BT hypoactive; denies flatus. Up to BSC with walker and 1 assist; voiding without dysuria, frequency or urgency. Is able to turn self in bed. Has slight numbness in left LE toe to knee but strong pedal pulses and able to move/lift leg without difficulty. Wound vac at 125mm hg to left medial ankle which is covered with anna wrap; CDI. Calf SCD to right LE. Complains of burning/sharp pain in left ankle so was medicated with IV Dilaudid at 2344 and again at 0059; pain did decrease to 5/10 after 1st dose but increased after being up to BSC. When patient check done at 0130, patient was asleep. Fall risk score is moderate but patient oriented and calls appropriately so bed alarm is not currently in use.
[2019-09-05] MEDS: OXYCODONE IR 10 MG TABLET PO ×3 (02:42→08:57)
[2019-09-05 04:13] VITALS: BP 112/55; PULSE 71; RESP 18; TEMP 37; O2SAT 98
[2019-09-05 06:40] LABS: Hematocrit 30.2 % (36-46); Hemoglobin 10.1 g/dL (12.0-16.0); Mean Corpuscular HGB Conc 33.5 % (30-36); Mean Corpuscular Hemoglobin 30.1 PG (26-34); Mean Corpuscular Volume 89.8 fL (80-100); Platelet Count 308 X10^3/uL (150-400); Red Blood Cell Count 3.36 X10^6/uL (4.0-5.2); Red Cell Distribution Width 13.3 % (11.6-14.8)
[2019-09-05] MEDS: VANCOMYCIN 1,500 MG/300 ML FROZ.PIGGY 200 MG IV ×2 (08:09→20:51)
[2019-09-05 08:15] VITALS: BP 135/90; PULSE 89; RESP 20; TEMP 37.7; O2SAT 98
[2019-09-05] MEDS: GABAPENTIN 300 MG CAPSULE PO ×2 (08:17→13:55)
[2019-09-05] MEDS: CITALOPRAM 20 MG TABLET 40 MG PO (08:17)
[2019-09-05] MEDS: ACETAMINOPHEN 325 MG TABLET 975 MG PO ×3 (08:17→20:50)
[2019-09-05] MEDS: IBUPROFEN 400 MG TABLET 800 MG PO ×2 (09:00→23:23)
--- NOTE | 2019-09-05 09:11 | PC.NURSE ---
Addendum entered by John Prado R.N. 09/05/19 09:15: Patient had complained that pain management was not adequate, did not notice a difference when medications were given. Remained in tears after IV dilaudid, gabapentin and tylenol given as ordered. Patient requested for this RN to call Dr. Hutchinson. Dr. Hutchinson notified. No new orders received, encouraged to give medications as ordered. Will follow. Original Note: Patient had gotten up with [employer] at change of shift to use [facility], patient called for pain medications. At bedside, patient is crying, grimacing and states her left ankle is now in severe pain. States she is in constant pain but then get stabbing shock waves that go through it, she does not know what it correlates to with position or movement. Fresh ice bags are in place and patient has leg resting on pillow. Medicated with dilaudid as ordered prn. Patient attempting to eat breakfast and will follow.
[2019-09-05 11:30] VITALS: BP 119/68; PULSE 65; RESP 18; TEMP 37.2; O2SAT 100
[2019-09-05] MEDS: HYDROMORPHONE 4 MG TABLET PO ×3 (12:37→20:49)
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
--- NOTE | 2019-09-05 14:42 | CM.IDA ---
Addendum entered by ALVIN Landaverde 09/05/19 14:52: According to conversation w/ Dr Hutchinson, no DC needs- will be placing consult request to Ostomy nurse Rachel Wayne for outpt f/u and culture results show no growth: Home w/po abx Original Note: Initial DCP Assessment Note: Pt is a 48 yo, resident [facility]. Pt now inpatient for an I+D of an ankle wound, requiring wound vac placement by Dr Hutchinson. Reviewed chart. 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 Lives w/spouse. PT has evaluated today and home w/ assist recommended when medically cleared. Pt having some difficulty w/pain today Home w/family is expected at DC, outpt f/u will be scheduled at the wound care center. no SW needs anticipated. Following closely in case DC needs or concerns arise. Likely po abx at DC, culture results pending P: DC home expected w/supportive family via pov ALVIN Landaverde
--- NOTE | 2019-09-05 14:48 | PT-IP ANOTE ---
This PT received call from assistance from surgeon office who stated pt is following 50% PWB at this point. And she will find out whether pt needs to wear post op shoe / walker boot.
--- NOTE | 2019-09-05 14:55 | PM.PNPO.1 ---
Subjective Subjective Date Patient Seen: 09/05/19 Time Patient Seen: 14:55 Interval history: Postop day 1 irrigation debridement wound closure and VAC application left ankle wound dehiscence and hematoma. Cultures negative so far. For patient's the oral Dilaudid works better than the oxycodone for pain relief. Also taking scheduled gabapentin. Work with physical therapy but was a little hesitant because she is in no how much weight she can put on her foot Reports has not seen wound care nurse yet Exam Vital Signs (past 8 hours): - 09/05/19 08:15 09/05/19 11:30 Temperature 99.8 F H 99.0 F Pulse Rate 89 65 Respiratory Rate 20 18 Blood Pressure 135/90 119/68 Pulse Oximetry 98 100 Oxygen Delivery Method Room Air Oxygen Flow Rate 0 Narrative Exam Narrative: Alert oriented no acute distress. Reports better pain control with the 4 mg Dilaudid then with the oxycodone. Shooting pain she was having this morning have eased up Denies any fevers or chills Breathing unlabored on room Got up a little with physical therapy Left lower extremity with Dominguez wrap and ABD pad in place. Back to good suction and no leak. Wiggles toes. Baseline numbness in the toes unchanged from preop. No erythema calf is soft. Demonstrates knee flexion extension. Ankle flexion-extension Objective Labs Result Diagrams: 09/05/19 06:19 09/04/19 20:09 Labs: Laboratory Results - last 24 hr 09/04/19 09/05/19 20:09 06:19 WBC 8.0 RBC 3.36 L Hgb 10.1 L Hct 30.2 L MCV 89.8 MCH 30.1 MCHC 33.5 RDW 13.3 Plt Count 308 Sodium 137 Potassium 3.9 Chloride 105 Carbon Dioxide 24 BUN 11 Creatinine 0.63 Estimated GFR > 60.0 BUN/Creatinine Ratio 17.5 Glucose 158 H Calcium 9.0 Assessment & Plan Post-op Postoperative Procedures: Procedures Operation Date: 09/04/19 15:15 Actual Procedures Side Surgeon p Irrigation debridement poss. wound vac application ankle and foot surgical site infection and dehiscence Left Marjorie Hutchinson MD Plan is in Hospital wound Care consult with Rachel Wayne to initiate outpatient home VAC set up. refer to outpatient wound care upon discharge. Goal would be discharge with home back on if home VAC applied in hospital then follow up with wound care on the following Tuesday for vac change Follow up wound cultures: If no growth, then we will discharge on 10 days Keflex and doxycycline for empiric coverage. If cultures grow would consider longer IV course.--negative so far- will keep vanc for now and if no growth tomorrow, DC On empiric vancomycin while awaiting cultures Previous culture from ER with no growth. Proximal 3/4 of incision was closed with sutures these will remain 3-4 weeks. Distal 2 cm of incision is where open area with wound VAC sponge is --then sponges doubled back over Adaptic as an incisional VAC over the rest of the incision. Measurements of open part of the wound are 2 cm x 1 cm x 1 cm. Closed incision measures 6cm. [facility] patient and inpatient consultation plans. Left message for JEANNE HoldenN, RN regarding vac/wound care --phone # [phone] Will do 50% weight-bearing left lower extremity to aid with wound healing--use an assistive device for partial weight-bearing Quality VTE Deep Vein Thrombosis/Pulmonary Embolism Present on Admission: No
[2019-09-05 15:44] VITALS: BP 116/60; PULSE 69; RESP 18; TEMP 36.5; O2SAT 99
[2019-09-05 19:50] VITALS: BP 103/65; PULSE 73; RESP 16; TEMP 37.5; O2SAT 97
[2019-09-05] MEDS: GABAPENTIN 600 MG TABLET PO (20:51)
[2019-09-05] MEDS: DOCUSATE 100 MG CAPSULE PO (20:51)
[2019-09-05 23:44] VITALS: BP 106/66; PULSE 70; RESP 16; TEMP 36.4; O2SAT 97
--- NOTE | 2019-09-06 00:19 | PC.NURSE ---
Addendum entered by Concetta Samson R.N. 09/06/19 04:59: States she was able to sleep after last being up to BSC but when now awakened for pain medication states pain is still 7/10; medicated with Dilaudid. Addendum entered by Concetta Samson R.N. 09/06/19 03:53: Patient requesting pain medication but not wanting to take IV Dilaudid as trying to control on po. Next Dilaudid not due until 0500. Offered morning dose of scheduled Tylenol but declines stating I'm doing to try to wait. Original Note: Patient is alert and oriented. Breath sounds CTA with RA sat of 97%. HRR. Denies nausea. BT hypoactive but is passing flatus. Independent with bed mobility. Up to BSC with walker and 1 assist (PWB on left LE). Denies dysuria, frequency or urgency. Wound vac to left medial ankle intact and set to 125mm hg. Foot/ankle is wrapped with anna and is CDI. Chronic numbness in toes of left foot and plantar surface of left food. CMS is otherwise intact. Wearing right calf SCD. States pain is 7/10 and was medicated with Ibuprofen and ice pack applied; requests to be awakened when po Dilaudid is available to take. Fall risk score is moderate but calling appropriately when needing to get out of bed so alarm is not in use.
[2019-09-06] MEDS: HYDROMORPHONE 4 MG TABLET PO ×4 (00:57→13:34)
[2019-09-06 04:01] VITALS: BP 118/52; PULSE 60; RESP 18; TEMP 36.3; O2SAT 96
--- NOTE | 2019-09-06 08:15 | PC.NURSE ---
Addendum entered by Akua Newton R.N. 09/06/19 10:57: Patients wound vac has been changed to smaller vac. Rachel into see patient and also changed bandage and foam to ankle. She is comfortable with IV Antibiotic infusing. She is going to be discharged around 1230 after lunch. Original Note: Patient is A&Ox3. She is 50% weight bearing on her L.ankle. Dressing cdi with foam in place for Wound Vac that is running at 125mm of suction. Patient in the bathroom now trying to have a bowel movment. Wound Vac has to be taken with patient to the bathroom. Patient is able to wiggle her toes and has good pedal pulses to foot.
[2019-09-06 08:30] VITALS: BP 146/98; PULSE 76; RESP 18; TEMP 36.3; O2SAT 98
[2019-09-06 08:35] LABS: Vancomycin Trough 11.3 ug/mL (10-20)
[2019-09-06] MEDS: DOCUSATE 100 MG CAPSULE PO (08:40)
[2019-09-06] MEDS: ACETAMINOPHEN 325 MG TABLET 975 MG PO (08:40)
[2019-09-06] MEDS: CITALOPRAM 20 MG TABLET 40 MG PO (08:40)
--- NOTE | 2019-09-06 09:03 | P.DS_ITS ---
History of Present Illness History of Present Illness Date Patient Seen: 09/06/19 Time Patient Seen: 09:03 Date of Onset of Symptoms: 09/01/19 Chief complaint: Ankle pain Narrative: Chief complaint left ankle pain wound and drainage. 48-year-old female for left ankle surgical site wound dehiscence and hematoma. Tarsal tunnel release and ganglion cyst excision 08/08/2019. Noted to have epidermolysis and wound dehiscence at follow-up. Indicated for operative irrigation debridement and VAC placement. Patient sources pain swelling numbn ess tingling drainage. Progressed since August. Not relieved with oxycodone and gabapentin. Discharge Providers Provider Date of admission: 09/04/19 14:54 Discharge Date: 09/06/19 Primary care physician: Brent Joiner MD Consults: 09/04/19 18:58 Consult to Discharge Planning Routine Comment: Consult to Physical Therapy Evaluate & Treat Comment: partial wb LLE okay Physician Instructions: Evaluate and Treat Consult to Physician Routine Comment: Consulting Provider: [facility] Reason for consultation: vijaya wayne: consult for home wound vac. wound [id number] 1cm Has provider been notified: Yes Consult to Respiratory Therapy Evaluate & Treat Comment: Physician Instructions: Evaluate and treat 09/05/19 08:43 Consult to Wound Care Routine Comment: Consulting Provider: [facility] Discharge provider: Marjorie Hutchinson MD Summary Hospital Course Discharge Diagnosis: Left ankle wound dehiscence and hematoma surgical site Obesity BMI 35 Hospital Course: Patient was admitted inpatient following her operative debri jaron hematoma evacuation and partial closure of the wound. The distal 1/4 was unable to be closed primarily and wound VAC was placed on this. Patient had a wound VAC on the distal part of the wound incisional VAC on the closed apart for 2 days. Cultures were taken intraoperatively. Patient was placed on empiric IV vancomycin until cultures return. No growth was found therefore IV antibiotics were. Patient was placed back on oral doxycycline at discharge. A home VAC was placed by ostomy nurse Rachel Wayne and follow-up care was arranged with [facility]. Additionally patient had difficulty with pain control with the oxycodone orally. This was switched for oral Dilaudid which the patient seems to tolerate better. The day of discharge the patient was tolerating oral medications she continues to take her oral gabapentin for nerve symptoms and ibuprofen and Tylenol. Patient tolerated a p.o. diet. She has been compliant with 50% weight-bearing on the left lower extremity. Appropriate for discharge home. Status at Discharge Cognitive/behavioral status at discharge: oriented Functional status at discharge: independent ambulation Overall status at discharge: patient is progressing back to baseline Time Spent with Patient Time spent: Less than 30 minutes Time spent discussing smoking cessation with patient: 3 to 10 minutes (Discussed smoking cessation to help with wound healing) Exam Vital Signs (past 8 hours): - 09/06/19 04:01 Temperature 97.3 F L Pulse Rate 60 Respiratory Rate 18 Blood Pressure 118/52 L Pulse Oximetry 96 Oxygen Delivery Method Room Air Oxygen Flow Rate 0 Narrative Exam Narrative: Alert oriented female in no acute distress sitting at bedside chair moves back to bed on her own Breathing unlabored on room Regular rate and rhythm afebrile Vital signs normal Musculoskeletal exam: Left lower extremity is examined Dominguez wrap removed back removed. Proximal 3/4 of incision with sutures in place this is well- approximated there is no erythema no drainage. Closed part of the incision measures approximately 6 cm distal 2 cm area open wound pink tissue. No active bleeding. This is a circular wound approximately 2 cm x 1 cm x 1 cm no surrounding erythema. No drainage or malodor. Demonstrates active dorsiflexion plantar flexion of the ankle and wiggles the toes. Unchanged decreased sensation numbness in post.tibial distribution consistent with preoperative sym ptoms. Home vac Dressings were placed by ostomy nurse Rachel Wayne Objective Labs Result Diagrams: 09/05/19 06:19 09/04/19 20:09 Labs: Laboratory Results - last 24 hr 09/06/19 08:01 Vancomycin Trough 11.3 Discharge Plan Discharge Plan Patient Disposition: Home Discharge orders & Medications Prescriptions: New hydromorphone 4 mg Tablet 4 mg PO Q4HR PRN (Reason: Pain, Severe (7-10)) Qty: 50 RF: 0 doxycycline hyclate 100 mg capsule 100 mg PO BID Qty: 20 RF: 0 Continued citalopram 40 mg tablet See Rx Instructions .ROUTE .COMPLEX Qty: 90 RF: 3 ibuprofen 800 mg tablet 800 mg PO BID PRN (Reason: pain) Qty: 120 RF: 3 dextroamphetamine-amphetamine [Adderall] 10 mg tablet 10 mg PO TID MDD 70 mg PRN (Reason: Adult ADD) 30 Days Qty: 90 RF: 0 dextroamphetamine-amphetamine [Adderall] 20 mg tablet 20 mg PO BID MDD 70 mg 30 Days Qty: 60 RF: 0 gabapentin 300 mg capsule 300 mg PO TID Qty: 30 RF: 1 acetaminophen [Tylenol Extra Strength] 500 mg tablet 500 mg PO Q6H PRN (Reason: pain) Qty: 60 RF: 0 citalopram 40 mg tablet 40 mg PO DAILY RF: 0 gabapentin 100 mg capsule 600 mg PO BEDTIME RF: 0 Discontinued hydrocodone-acetaminophen 10-325 mg tablet 1 - 2 tab PO Q4HP PRN (Reason: pain) Qty: 120 RF: 0 oxycodone 5 mg tablet 5 mg PO Q4H PRN (Reason: pain) Qty: 40 RF: 0 doxycycline hyclate 100 mg capsule 100 mg PO BID RF: 0 cephalexin 500 mg capsule 500 mg PO BID RF: 0 Follow up/Referrals: Marjorie Hutchinson MD [Physician] - (f/u approx 2 weeks from discharge) Brent Joiner MD [Primary Care Provider] - Diet/Activity/Treatments Diet: Diet as Tolerated Activity: 50% wB LLE. wound care with wound care center for vac changes. Skin/Wound/Dressing Care Report to your healthcare provider any signs of infection, such as:: chills, fever, night sweats, increased pain, unusual drainage and unusual redness Dressing: vac changes per wound care, suture will remain approx 2-4 weeks Discharge Data Primary Care Provider: Brent Joiner Quality VTE Deep Vein Thrombosis/Pulmonary Embolism Present on Admission: No
--- NOTE | 2019-09-06 10:26 | PC.NURSE ---
Addendum entered by Rachel Wayne R.N. 09/07/19 09:30: Wound Vac Settings: 125mmHg, continuous. Original Note: Wound Ostomy Nurse Note Met Dr. Hutchinson in patient room. Dr. Hutchinson removed [employer] wound vac dressing. We discussed the wound and treatment plan. The wound is a surgical wound to evacuate a hematoma from her left medial ankle. The wound measures 2.0x1.0x0.6cm. The edges are open. The wound base is beefy red without slough. There is a small amount of serosanguenous drainage in the canister. There was slight maceration at the 6:00 position of the amadeo-wound. Shari does have pain, 6/10 and she was medicated prior to removal and placement of new wound vac dressing. I cleaned the wound with Normal Saline, pat dry. Took a picture and measured wound. I placed one piece of black foam into the wound base, a piece of adapt over the incision line, then a bridge of black foam from the wound over the incision line and one more piece of black foam for a track pad button. TOTAL 3 black foams. Shari was upset by all that is happening in the world and in her world, but after we talk and I discussed her wound care she was a lot better. She does live at home with her and daughter. Her is very supportive. I reviewed how to turn the [employer] wound vac on and off and how to disconnect it for showering. She verbalized understanding. I reviewed the booklet with her and she understands to turn off the wound vac if there is bright red blood and to go to the ER. I reviewed how to check for leaks and how to trouble shoot the vac if there is an alarm and she understands to call [employer] if she can not trouble shoot the wound vac machine. She is aware that the vac cannot be off for more than 2 hours and that it needs to be charged at night. She will follow up with [facility] wound care center on Tuesday September 10, 2019 at 1:00 for a 1:[address] Giles.
[2019-09-06] MEDS: VANCOMYCIN 1,500 MG/300 ML FROZ.PIGGY 200 MG IV (10:41)
[2019-09-06] MEDS: GABAPENTIN 300 MG CAPSULE PO (10:43)
[2019-09-06] MEDS: SODIUM CHLORIDE 0.9% FLUSH 10 ML IV (10:43)
--- NOTE | 2019-09-06 11:07 | PT-IP ANOTE ---
1100: pt in room moving independently with IV and wound vac attached. Refused stair training and caregiver training before DC due to the fact that she has been getting in and out of the house with assist from including going up and down stairs. Pt has 9 y/o child and pts doesn't have maternal child nurse to leave child at home for time of picking up patient. States she just wants to leave the hospital at time of DC in order to lessen the hardship on family.
[2019-09-06 12:00] VITALS: BP 132/59; PULSE 81; RESP 18; TEMP 37.1; O2SAT 97
--- NOTE | 2019-09-06 14:07 | CM.DPNOTE ---
DC Note: Met w/pt this morning to review DCP. Pt confident about returning home w/spouse. She explains to this RETREAD SUPERVISOR the struggle w/her ankle has been going on for approx a month which has been very difficult since she is use to being very active. Rachel Wayne consulted for assist in securing [employer] wound vac and teaching before pt's DC. Faxed face sheet and op note to Coleen/JOHN per request to F#[phone] Coleen P# [phone] No needs from this RETREAD SUPERVISOR per patient, RN, Dr Hutchinson, and RN Rachel Wayne. F/u scheduled at the wound care clinic JW
== END 2019-09-06 14:00 | disposition home or self-care (01) | DRG 908 ==
LOC: OR 15:10 → AC 19:13
PROVIDERS: Admitting Provider Orthopaedic Surgery Foot and Ankle Surgery; PCP Internal Medicine; Referring Provider Orthopaedic Surgery Foot and Ankle Surgery; Visit Provider Orthopaedic Surgery Foot and Ankle Surgery
PROC: 0KBT0ZZ Excision of Left Lower Leg Muscle, Open Approach (ICD-10-PCS; principal; 2019-09-04 15:15)
DX: T81.32XA Disruption of internal operation (surgical) wound, not elsewhere classified, initial encounter (principal); M96.840 Postprocedural hematoma of a musculoskeletal structure following a musculoskeletal system procedure; G57.52 Tarsal tunnel syndrome, left lower limb; F90.9 Attention-deficit hyperactivity disorder, unspecified type; F43.10 Post-traumatic stress disorder, unspecified; E66.9 Obesity, unspecified; Z68.35 Body mass index [BMI] 35.0-35.9, adult
CPT/HCPCS: 36415; 80048; 80053; 80202; 83735; 85025; 85027; 85651; 86140; 87070; 87075; 87077; 87176; 87186; 87205; 97161; 99283; J0690; J1100; J1170; J2250; J2405; J2704; J3010

== ENCOUNTER → 2019-09-10 13:35 | Outpatient (CLI) | payer BC, SELFPAY ==
[2019-09-04 19:44] VITALS: BMI 35.3
== END ==
PROVIDERS: PCP Internal Medicine; Referring Provider Orthopaedic Surgery Foot and Ankle Surgery; Visit Provider Family Medicine
DX: S91.002A Unspecified open wound, left ankle, initial encounter (principal); T81.31XA Disruption of external operation (surgical) wound, not elsewhere classified, initial encounter; L08.9 Local infection of the skin and subcutaneous tissue, unspecified
CPT/HCPCS: 11043; 97605; 99203

== ENCOUNTER → 2019-09-13 13:34 | Outpatient (CLI) | payer BC, SELFPAY ==
[2019-09-04 19:44] VITALS: BMI 35.3
== END ==
PROVIDERS: PCP Internal Medicine; Referring Provider Internal Medicine; Visit Provider Family Medicine
DX: S91.002A Unspecified open wound, left ankle, initial encounter (principal)
CPT/HCPCS: 97605

== ENCOUNTER → 2019-09-20 13:35 | Outpatient (CLI) | payer BC, SELFPAY ==
[2019-09-04 19:44] VITALS: BMI 35.3
== END ==
PROVIDERS: PCP Internal Medicine; Referring Provider Internal Medicine; Visit Provider Family Medicine
DX: S91.002A Unspecified open wound, left ankle, initial encounter (principal); T81.31XA Disruption of external operation (surgical) wound, not elsewhere classified, initial encounter
CPT/HCPCS: 11042; 97605

== ENCOUNTER → 2019-09-28 11:39 | Outpatient (CLI) | payer BC, SELFPAY ==
[2019-09-04 19:44] VITALS: BMI 35.3
== END ==
PROVIDERS: PCP Internal Medicine; Referring Provider Internal Medicine; Visit Provider Family Medicine
DX: S91.002A Unspecified open wound, left ankle, initial encounter (principal); T81.31XA Disruption of external operation (surgical) wound, not elsewhere classified, initial encounter
CPT/HCPCS: 11042; 73610; 87070; 87075; 87205; 97605; 99212

== ENCOUNTER → 2019-09-28 12:54 | Outpatient (CLI) | payer BC, SELFPAY ==
[2019-09-04 19:44] VITALS: BMI 35.3
--- NOTE | 2019-09-28 | DI.RAD.S_ITS ---
PROCEDURE: XR ANKLE LT MIN 3V INDICATIONS: Non-healing wound post-op/eval for osteo TECHNIQUE: 3 views of the ankle were acquired. COMPARISON: Located Within [facility], MR, MR ANKLE LT WO/W CON, 08/07/2019, 7:06. Located Within [facility], CR, XR ANKLE LT MIN 3V, 05/25/2019, 19:25. FINDINGS: Bones: No fractures or dislocations. Mild lucency at the tip of the medial malleolus, technically non-specific and could be related to projectional artifact, although this appears more conspicuous since the prior study. Spurring and heterotopic ossification at the distal insertion of the Achilles tendon Hindfoot and midfoot degenerative spurring. Soft tissues: No tibiotalar joint effusion. Achilles tendon appears normal. IMPRESSION: No definite focal osseous destruction to suggest advanced osteomyelitis although please see comment regarding the tip of the medial malleolus. If there is persistent clinical concern, continued short interval radiographic followup or contrast enhanced MRI could be performed to assess for early infection. Dictated by: Jose Fong M.D. on 09/28/2019 at 14:56 Approved by: Jose Fong M.D. on 09/28/2019 at 15:00
== END ==
PROVIDERS: PCP Internal Medicine; Referring Provider Family Medicine; Visit Provider Family Medicine
DX: S91.002A Unspecified open wound, left ankle, initial encounter (principal); T81.31XA Disruption of external operation (surgical) wound, not elsewhere classified, initial encounter
CPT/HCPCS: 73610

== ENCOUNTER → 2019-10-01 11:39 | Outpatient (CLI) | payer BC, SELFPAY ==
[2019-09-04 19:44] VITALS: BMI 35.3
== END ==
PROVIDERS: PCP Internal Medicine; Referring Provider Internal Medicine; Visit Provider Family Medicine
DX: L97.321 Non-pressure chronic ulcer of left ankle limited to breakdown of skin (principal); R60.0 Localized edema
CPT/HCPCS: 97605

== ENCOUNTER → 2019-10-04 11:26 | Outpatient (CLI) | payer BC, SELFPAY ==
[2019-09-04 19:44] VITALS: BMI 35.3
== END ==
PROVIDERS: PCP Internal Medicine; Referring Provider Internal Medicine; Visit Provider Surgery
DX: S91.002A Unspecified open wound, left ankle, initial encounter (principal)
CPT/HCPCS: 97597

== ENCOUNTER → 2019-10-08 11:52 | Outpatient (CLI) | payer BC, SELFPAY ==
[2019-09-04 19:44] VITALS: BMI 35.3
== END ==
PROVIDERS: PCP Internal Medicine; Referring Provider Internal Medicine; Visit Provider Family Medicine
DX: S91.002A Unspecified open wound, left ankle, initial encounter (principal)
CPT/HCPCS: 97605

== ENCOUNTER → 2019-10-11 13:15 | Outpatient (CLI) | payer BC, SELFPAY ==
[2019-09-04 19:44] VITALS: BMI 35.3
== END ==
PROVIDERS: PCP Internal Medicine; Referring Provider Internal Medicine; Visit Provider Family Medicine
DX: S91.002A Unspecified open wound, left ankle, initial encounter (principal); T81.31XA Disruption of external operation (surgical) wound, not elsewhere classified, initial encounter
CPT/HCPCS: 97597; 99212

== ENCOUNTER → 2019-10-16 15:17 | Outpatient (CLI) | payer BC, SELFPAY ==
[2019-09-04 19:44] VITALS: BMI 35.3
== END ==
PROVIDERS: PCP Internal Medicine; Referring Provider Internal Medicine; Visit Provider Family Medicine
DX: S91.002A Unspecified open wound, left ankle, initial encounter (principal); T81.31XA Disruption of external operation (surgical) wound, not elsewhere classified, initial encounter
CPT/HCPCS: 11042; 97607

== ENCOUNTER → 2019-10-24 10:43 | Outpatient (CLI) | payer BC, SELFPAY ==
[2019-09-04 19:44] VITALS: BMI 35.3
== END ==
PROVIDERS: PCP Internal Medicine; Referring Provider Internal Medicine; Visit Provider Family Medicine
DX: S91.002A Unspecified open wound, left ankle, initial encounter (principal); T81.31XA Disruption of external operation (surgical) wound, not elsewhere classified, initial encounter
CPT/HCPCS: 11042; 97607

== ENCOUNTER → 2019-10-31 13:12 | Outpatient (CLI) | payer BC, SELFPAY ==
[2019-09-04 19:44] VITALS: BMI 35.3
== END ==
PROVIDERS: PCP Internal Medicine; Referring Provider Internal Medicine; Visit Provider Family Medicine
DX: S91.002A Unspecified open wound, left ankle, initial encounter (principal); T81.31XA Disruption of external operation (surgical) wound, not elsewhere classified, initial encounter
CPT/HCPCS: 11042; 97607

== ENCOUNTER → 2019-11-05 15:00 | Outpatient (CLI) | payer BC, SELFPAY ==
[2019-09-04 19:44] VITALS: BMI 35.3
== END ==
PROVIDERS: PCP Internal Medicine; Referring Provider Internal Medicine; Visit Provider Family Medicine
DX: S91.002A Unspecified open wound, left ankle, initial encounter (principal)
CPT/HCPCS: 97607; 99213

== ENCOUNTER → 2019-11-08 15:08 | Outpatient (CLI) | payer BC, SELFPAY ==
[2019-09-04 19:44] VITALS: BMI 35.3
== END ==
PROVIDERS: PCP Internal Medicine; Referring Provider Internal Medicine; Visit Provider Family Medicine
DX: S91.002A Unspecified open wound, left ankle, initial encounter (principal); T81.31XA Disruption of external operation (surgical) wound, not elsewhere classified, initial encounter
CPT/HCPCS: 15271; Q4132

== ENCOUNTER → 2019-11-14 10:24 | Outpatient (CLI) | payer BC, SELFPAY ==
[2019-09-04 19:44] VITALS: BMI 35.3
== END ==
PROVIDERS: PCP Internal Medicine; Referring Provider Internal Medicine; Visit Provider Family Medicine
DX: S91.002A Unspecified open wound, left ankle, initial encounter (principal); T81.31XA Disruption of external operation (surgical) wound, not elsewhere classified, initial encounter
CPT/HCPCS: 15271; 99213; Q4132

== ENCOUNTER → 2019-11-20 12:17 | Outpatient (CLI) | payer BC, SELFPAY ==
[2019-09-04 19:44] VITALS: BMI 35.3
[2019-11-20 14:01] LABS: Hemoglobin A1C% w Est Avg Glu 5.6 % (4.0-6.0)
== END ==
PROVIDERS: PCP Internal Medicine
DX: Z13.1 Encounter for screening for diabetes mellitus (principal); N95.1 Menopausal and female climacteric states
CPT/HCPCS: 36415; 83001; 83036

== ENCOUNTER → 2019-11-22 15:39 | Outpatient (CLI) | payer BC, SELFPAY ==
[2019-09-04 19:44] VITALS: BMI 35.3
== END ==
PROVIDERS: PCP Internal Medicine; Referring Provider Internal Medicine; Visit Provider Family Medicine
DX: S91.002A Unspecified open wound, left ankle, initial encounter (principal); T81.31XA Disruption of external operation (surgical) wound, not elsewhere classified, initial encounter
CPT/HCPCS: 15271; 93922; Q4132

== ENCOUNTER → 2019-11-28 15:42 | Outpatient (CLI) | payer BC, SELFPAY ==
[2019-09-04 19:44] VITALS: BMI 35.3
== END ==
PROVIDERS: PCP Internal Medicine; Referring Provider Internal Medicine; Visit Provider Family Medicine
DX: S91.002A Unspecified open wound, left ankle, initial encounter (principal); T81.31XA Disruption of external operation (surgical) wound, not elsewhere classified, initial encounter
CPT/HCPCS: 15271; Q4132

== ENCOUNTER → 2019-12-06 15:12 | Outpatient (CLI) | payer BC, SELFPAY ==
[2019-09-04 19:44] VITALS: BMI 35.3
== END ==
PROVIDERS: PCP Internal Medicine; Referring Provider Internal Medicine; Visit Provider Family Medicine
DX: S91.002A Unspecified open wound, left ankle, initial encounter (principal); T81.31XA Disruption of external operation (surgical) wound, not elsewhere classified, initial encounter
CPT/HCPCS: 99213

== ENCOUNTER → 2019-12-18 16:16 | Outpatient (CLI) | payer BC, SELFPAY ==
[2019-09-04 19:44] VITALS: BMI 35.3
== END ==
PROVIDERS: PCP Internal Medicine; Referring Provider Internal Medicine; Visit Provider Family Medicine
DX: Z48.01 Encounter for change or removal of surgical wound dressing (principal)
CPT/HCPCS: 99212; 99213

== ENCOUNTER 2020-06-16 15:15 | Outpatient (RCR) | payer BC, SELFPAY ==
[2019-09-04 19:44] VITALS: BMI 35.3
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
--- NOTE | 2020-01-22 17:28 | PT.OPPOC ---
Physical, Occupational & Speech Therapy At [facility] Current Diagnoses Effusion, left ankle (01/22/20) Pain in left foot (01/22/20) Other specified postprocedural states (01/22/20) Visit Care Team Role Provider Type Brent Joiner MD Attending Provider Physician Family Provider Primary Care Provider Referring Provider Specialty: Internal Medicine Address: [address] [place] [address], [address], [facility] Email: [email or web address] Plan Of Care PT-OP-T Assessment and Plan Start: 01/22/20 16:19 Freq: Status: Active Protocol: Document 01/22/20 16:20 (Rec: 01/22/20 17:26 [email or web address]) Physical Therapy Assessment Rehab Potential Rehabilitation Potential Good Evaluation Complexity Number of Personal Factors/Comorbidities 1-2 Number of Body Systems Impaired 1-2 Clinical Presentation at Evaluation Stable Impairments Impairments Activity Tolerance,Balance, Coordination,Edema,Functional Activities,Functional Mobility ,Gait,Pain,Posture,ROM, Sensation,Soft Tissue Mobility ,Strength,Transfers Goals Single leg balance Impairment L SLS = 18s Correction Goal (LTG) Pt will improve her SL balance up to 30 seconds with minimal discomfort so she climbs stairs/ steps with minimal discomfort. LTG Duration 8 weeks activity tolerance Impairment unable to stand/ walk > 10 mins Learning And Development Administrator Goal (LTG) pt will be able to stand/ walk with a proper gait mechanics >30 mins with minimal pain/ discomfort LTG Duration 8 weeks FAAM Impairment pt scores 20 Short Term Goal (STG) pt will score 49 or greater to improve her over ankle mobility and strength. STG Duration 4 weeks Correction Goal (LTG) pt will score 66 or greater to improve her over ankle mobility and strength. LTG Duration 8 weeks LEFS Impairment pt scores 23 Short Term Goal (STG) Pt will score 47 or greater on LEFS to improve her functional mobility STG Duration 4 weeks Learning And Development Administrator Goal (LTG) Pt will score 62 or greater on LEFS to improve her functional mobility and quality of life LTG Duration 8 weeks Assessment Summary Assessment This is a 49 yo female here for residual L foot pain, numbness, weakness and decreased balance s/p removal of a ganglion cyst and decompression of the tarsal tunnel on 08/08/19. Pt also had I&D on 09/04/19 d/t site infection who received wound care tx for months after. Upon assessment, pt presents tarsal tunnel syndrome with sensation loss to touch and pressure at the entire plantar surface, and minimal loss at dorsal surface (1st ray and 4th 5th digits); significant weakness with ankle PF & inversion and toes flexion and abduction. Pt also amb with dec heel strike and toe push off. Pt will benefit from skilled therapy to strengthen her L ankle and foot intrinsics, improve ankle stability and gait mechanics in order for her to stand and walk for daily activities. Physical Therapy Plan Frequency and Duration Frequency of Treatment 2x/Week Duration of Treatment 8 weeks Plan of Care Start Date 01/22/20 Plan of Care End Date 03/22/20 Therapeutic Interventions Therapeutic Interventions Balance Training,Gait Training ,Home Exercise Program,Joint Mobilizations,Manual Therapy, Neuromuscular Re-education, Orthotic/Prosthetic Management ,Patient/Caregiver Education, Self-Care/Home Management, Sensory Integration,Soft Tissue Mobilization,Taping, Therapeutic Activities, Therapeutic Exercises Modalities Cold Pack/Ice Massage,Electric Stimulation,Hot Packs, Infrared Therapy,Ultrasound Next Visit Focus/Plan Next Note Type Treatment Note Next Visit Plan review HEP towel scrunch , marble pickup scar mob if needed L foot inversion, toe curls, PF bap board gait training on heel strike and toes push off. Plan of Care Dates Plan of Care Start Date 01/22/20 Plan of Care End Date 03/22/20 Electronically Signed by: Yasmeen Mcnamara PT 01/22/20 [id number] Please Sign and Return: I have reviewed this Plan of Care and certify that the skilled therapy services above are required to meet the patient?s needs. Physician Signature Date Printed Name and Credentials Clinical Instructor Signature Printed Name and Credentials
--- NOTE | 2020-02-19 16:18 | PT-IP ANOTE ---
Pt has been cancelling her PT appts multiple times with 2 no shows. Left a VM to her today regarding d/c planning and pt called back to apologize. Will see pt next tuesday02/25/20 and discuss her POC and cancellation policy.
--- NOTE | 2020-02-25 16:42 | PT.OTN ---
Current Diagnoses Effusion, left ankle (02/25/20) Pain in left foot (02/25/20) Other specified postprocedural states (02/25/20) Physical Therapy Treatment Note PT-OP-A Visit Information Start: 01/22/20 16:19 Freq: Status: Active Protocol: Document 02/25/20 16:21 HH (Rec: 02/25/20 16:42 HH [email or web address]) Out-Patient Physical Therapy Visit Information Visit Information Visit Type Treatment Note Visit Note Pt has been cancelling multiple appointments and no show twice since IE. Her last session = 01/22/20. 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 Visit Start Time 15:18 Visit Stop Time 16:00 Total Visit Minutes 42 Visit Number Number of PACKAGING CLERK Visits 0 PT-OP-B Current Condition Start: 01/22/20 16:19 Freq: Status: Active Protocol: Document 01/22/20 16:20 HH (Rec: 01/22/20 17:26 HH [email or web address]) Current Condition History of Current Condition Onset Date 08/08/19 Current Complaints L foot pain and numbness, foot weakness with decreased balance History of Current Condition Pt is a 49 yo female here for her L foot pain, numbness, weakness and decreased balance since last year. Pt was found to have a nonenhancing cystic appearaning approximately 2 cm ganglion cyst at the medial ankle deep to the flexor retinaculum abutting the posterior tibial nerve earlier this year and required to have removal of the cyst and decompression of the tarsal tunnel on 08/08/19 . In addition, pt then had infection at surigcal site and required I & D on 09/04/19, along with weeks of wound care tx after. Pt currently still has residual pain at medial ankle and plantar surface especially with pressure at her surgical site; numbness to the entire plantar surface, and dorsal surface of the 4th and 5th toes. Pt noticed she has weakness with her toes since surgery and so does her balance. Her pain, numbness has been significantly limiting her mobility who cannot tolerate standing/ walking/ exercising for more than 10 mins. She also has trouble putting weight on L foot in the morning which requires her to gradually WB on it to start. She is currently taking hydrocodone 10mg every 6-8 hrs a day. Pt also stated she has multiple ankle sprains in the past which her ortho team believes that could be the cause of her ganglion cyst. Prior Treatments and Tests Irrigation debridement skin muscle fascia 20 sq cm or less 09/04/19 removal of ganglion cyst and decompression of the tarsal tunnel 08/08/19 Treatment Goals Patient/Caregiver Goals 1. To regain her foot strength and balance 2. To reduce her foot pain during mobility such as standing/ walking. Personal Factors Other Personal Factors That May Effect fibromyalgia Therapy/Recovery current smoker PT-OP-C Subjective Start: 01/22/20 16:19 Freq: Status: Active Protocol: Document 02/25/20 16:21 HH (Rec: 02/25/20 16:42 HH [email or web address]) OP-PT Subjective Patient Comments Patient Comments My foot has been the same. Standing on it or long walk still bother me. I have been having some new heel pain on both sides. Patient Reported Progress Same PT-OP-D Balance Start: 01/22/20 16:19 Freq: Status: Active Protocol: Document 01/22/20 16:20 HH (Rec: 01/22/20 17:26 [email or web address]) Balance Tests Single Limb Standing Single Limb- Right >45s Single Limb- Left 18s Other Other Balance Tests Performed pain with standing on L foot PT-OP-F Manual Assessment Start: 01/22/20 16:19 Freq: Status: Active Protocol: Document 01/22/20 16:20 HH (Rec: 01/22/20 17:26 [email or web address]) Manual Assessments Soft Tissue Assessment Soft Tissue Mobility Assessment TTP below surgical site and report of radiating pain to the entire plantar surface of the L foot PT-OP-G Mobility & Gait Start: 01/22/20 16:19 Freq: Status: Active Protocol: Document 01/22/20 16:20 HH (Rec: 01/22/20 17:26 [email or web address]) OP Gait Assessment Factors Limiting Gait Function Factors Limiting Gait Function Decreased Activity Tolerance, Decreased Sensation,Decreased Strength,Limited Range of Motion,Pain,Poor Balance Comments Gait Comments pt walks with flat footed on L side with minimal heel strike and toes push off. PT-OP-J Posture/Palpation/Skin Start: 01/22/20 16:19 Freq: Status: Active Protocol: Document 01/22/20 17:26 HH (Rec: 01/22/20 17:27 [email or web address]) Skin Assessment Circumference Measurement L ankle Location figure 8 ( above maleoli then 5th met head) Comments 22 inches R ankle Location figure 8 ( above maleoli then 5th met head) Comments 20 inches PT-OP-K Range of Motion Start: 01/22/20 16:19 Freq: Status: Active Protocol: Document 01/22/20 16:20 HH (Rec: 01/22/20 17:26 [email or web address]) Ankle and Foot Goniometric Range of Motion Ankle and Foot Right Active Ankle/Foot ROM WFL Yes Testing Position Supine Dorsiflexion with Knee Flexed 21 Dorsiflexion with Knee Extended 12 Plantarflexion 55 Inversion 40 Eversion 21 Left Active Ankle/Foot ROM WFL Yes Testing Position Supine Dorsiflexion with Knee Flexed 15 Dorsiflexion with Knee Extended 12 Plantarflexion 38 Inversion 30 Eversion 15 Ankle and Foot ROM Limitations ROM Limitations Muscle Weakness PT-OP-M Strength Start: 01/22/20 16:19 Freq: Status: Active Protocol: Document 01/22/20 16:20 (Rec: 01/22/20 17:26 [email or web address]) Knee Strength Knee Manual Muscle Testing Right Flexion (S2) 4+ Good+ Extension (L3) 4+ Good+ Left Flexion (S2) 4+ Good+ Extension (L3) 4+ Good+ Ankle/Foot Strength Ankle and Foot Manual Muscle Testing Right Dorsiflexion (L4) 5 Normal Plantarflexion (S1) 5 Normal Inversion 5 Normal Eversion (S1) 5 Normal Left Dorsiflexion (L4) 4+ Good+ Plantarflexion (S1) 3+ Fair+ Inversion 3+ Fair+ Eversion (S1) 4 Good Toe Strength Toe Manual Muscle Testing Right Great Toe Flexion 5 Normal Extension 5 Normal Left Great Toe Flexion 3+ Fair+ Extension 4+ Good+ Comments 2nd- 5th toes have minimal abduction noted and flexion noted ~ 3/5 PT-OP-Q Treatments Start: 01/22/20 16:19 Freq: Status: Active Protocol: Document 02/25/20 16:21 (Rec: 02/25/20 16:42 [email or web address]) Therapeutic Exercises Supine Exercises hamstrings stretch Side left Equipment Used long towel Reps/Minutes 2 mins Comments for HEP, pt noticed L has higher neural tension Sitting Exercises ankle PF and INV Side left Equipment Used level 2 band Reps/Minutes 10 x 2 Comments for HEP Standing Exercises tennis ball Standing Exercise Name at plantar fascia Side bilateral Reps/Minutes 2 mins Comments for pain management at home Manual Therapy Treatment Soft Tissue Mobilization post tib. Body Location L Mobilization Type Sustained Pressure,Trigger Point Release Intensity/Depth Moderate Body Position Prone plantar fascia Body Location Bilaterally Mobilization Type Sustained Pressure,Trigger Point Release Intensity/Depth Moderate Body Position Supine gastro Body Location Bilaterally Mobilization Type Sustained Pressure,Trigger Point Release Intensity/Depth Moderate Body Position Prone Joint Mobilizations forefoot Direction supination and pronation Grade II Body Position Supine Reps/Duration 2 mins Self-Care/Home Management Treatment Education Patient Education Body Mechanics,Home Exercise Program Other Education education on proper footwear to facilitate foot mobility since pt has been wearing sandals since July who shows lack of heel strike and toe push off. PT-OP-T Assessment and Plan Start: 01/22/20 16:19 Freq: Status: Active Protocol: Document 02/25/20 16:21 (Rec: 02/25/20 16:42 [email or web address]) Physical Therapy Assessment Goals Single leg balance Impairment L SLS = 18s Second Baller Goal (LTG) Pt will improve her SL balance up to 30 seconds with minimal discomfort so she climbs stairs/ steps with minimal discomfort. LTG Duration 8 weeks activity tolerance Impairment unable to stand/ walk > 10 mins Assisted Goal (LTG) pt will be able to stand/ walk with a proper gait mechanics >30 mins with minimal pain/ discomfort LTG Duration 8 weeks FAAM Impairment pt scores 20 Short Term Goal (STG) pt will score 49 or greater to improve her over ankle mobility and strength. STG Duration 4 weeks Assisted Goal (LTG) pt will score 66 or greater to improve her over ankle mobility and strength. LTG Duration 8 weeks LEFS Impairment pt scores 23 Short Term Goal (STG) Pt will score 47 or greater on LEFS to improve her functional mobility STG Duration 4 weeks Assisted Goal (LTG) Pt will score 62 or greater on LEFS to improve her functional mobility and quality of life LTG Duration 8 weeks Assessment Summary Assessment Pt came in with pain and weakness for L PF and INV (3+/ 5). Tx focused on manual therapy to improve foot mobility and decrease nerve sensitivity. Pt immediately reached 4/5 for PF and INV. Spent time educating pt on proper footwear instead of sandals to promote foot mobility with heel strike and push off during gait. Also educated her regarding d/c policy if pt cont to have multiple cancellation and no shows. pt was receptive. Physical Therapy Plan Next Visit Focus/Plan Next Note Type Treatment Note Next Visit Plan review HEP towel scrunch , marble pickup scar mob if needed L foot inversion, toe curls, PF bap board gait training on heel strike and toes push off.
--- NOTE | 2020-02-28 10:41 | PT.OTN ---
Current Diagnoses Effusion, left ankle (02/28/20) Pain in left foot (02/28/20) Other specified postprocedural states (02/28/20) Physical Therapy Treatment Note PT-OP-A Visit Information Start: 01/22/20 16:19 Freq: Status: Active Protocol: Document 02/28/20 09:51 HH (Rec: 02/28/20 10:41 HH [id number]) Out-Patient Physical Therapy Visit Information Visit Information Visit Type Treatment Note Visit Start Time 09:50 Visit Stop Time 10:30 Total Visit Minutes 40 Visit Number 08/26 Number of JEWEL HOLE ROUGH OPENER Visits 0 PT-OP-B Current Condition Start: 01/22/20 16:19 Freq: Status: Active Protocol: Document 01/22/20 16:20 HH (Rec: 01/22/20 17:26 HH [email or web address]) Current Condition History of Current Condition Onset Date 08/08/19 Current Complaints L foot pain and numbness, foot weakness with decreased balance History of Current Condition Pt is a 49 yo female here for her L foot pain, numbness, weakness and decreased balance since last year. Pt was found to have a nonenhancing cystic appearaning approximately 2 cm ganglion cyst at the medial ankle deep to the flexor retinaculum abutting the posterior tibial nerve earlier this year and required to have removal of the cyst and decompression of the tarsal tunnel on 08/08/19 . In addition, pt then had infection at surigcal site and required I & D on 09/04/19, along with weeks of wound care tx after. Pt currently still has residual pain at medial ankle and plantar surface especially with pressure at her surgical site; numbness to the entire plantar surface, and dorsal surface of the 4th and 5th toes. Pt noticed she has weakness with her toes since surgery and so does her balance. Her pain, numbness has been significantly limiting her mobility who cannot tolerate standing/ walking/ exercising for more than 10 mins. She also has trouble putting weight on L foot in the morning which requires her to gradually WB on it to start. She is currently taking hydrocodone 10mg every 6-8 hrs a day. Pt also stated she has multiple ankle sprains in the past which her ortho team believes that could be the cause of her ganglion cyst. Prior Treatments and Tests Irrigation debridement skin muscle fascia 20 sq cm or less 09/04/19 removal of ganglion cyst and decompression of the tarsal tunnel 08/08/19 Treatment Goals Patient/Caregiver Goals 1. To regain her foot strength and balance 2. To reduce her foot pain during mobility such as standing/ walking. Personal Factors Other Personal Factors That May Effect fibromyalgia Therapy/Recovery current smoker PT-OP-C Subjective Start: 01/22/20 16:19 Freq: Status: Active Protocol: Document 02/28/20 09:51 HH (Rec: 02/28/20 10:41 HH [id number]) OP-PT Subjective Patient Comments Patient Comments I feel really good after last time. I started wearing my running shoes since yesterday and i went for a walk but it got sore.. Patient Reported Progress Improving PT-OP-D Balance Start: 01/22/20 16:19 Freq: Status: Active Protocol: Document 01/22/20 16:20 HH (Rec: 01/22/20 17:26 HH [email or web address]) Balance Tests Single Limb Standing Single Limb- Right >45s Single Limb- Left 18s Other Other Balance Tests Performed pain with standing on L foot PT-OP-F Manual Assessment Start: 01/22/20 16:19 Freq: Status: Active Protocol: Document 01/22/20 16:20 HH (Rec: 01/22/20 17:26 HH [email or web address]) Manual Assessments Soft Tissue Assessment Soft Tissue Mobility Assessment TTP below surgical site and report of radiating pain to the entire plantar surface of the L foot PT-OP-G Mobility & Gait Start: 01/22/20 16:19 Freq: Status: Active Protocol: Document 01/22/20 16:20 HH (Rec: 01/22/20 17:26 HH [email or web address]) OP Gait Assessment Factors Limiting Gait Function Factors Limiting Gait Function Decreased Activity Tolerance, Decreased Sensation,Decreased Strength,Limited Range of Motion,Pain,Poor Balance Comments Gait Comments pt walks with flat footed on L side with minimal heel strike and toes push off. PT-OP-J Posture/Palpation/Skin Start: 01/22/20 16:19 Freq: Status: Active Protocol: Document 01/22/20 17:26 HH (Rec: 01/22/20 17:27 HH [email or web address]) Skin Assessment Circumference Measurement L ankle Location figure 8 ( above maleoli then 5th met head) Comments 22 inches R ankle Location figure 8 ( above maleoli then 5th met head) Comments 20 inches PT-OP-K Range of Motion Start: 01/22/20 16:19 Freq: Status: Active Protocol: Document 01/22/20 16:20 HH (Rec: 01/22/20 17:26 [email or web address]) Ankle and Foot Goniometric Range of Motion Ankle and Foot Right Active Ankle/Foot ROM WFL Yes Testing Position Supine Dorsiflexion with Knee Flexed 21 Dorsiflexion with Knee Extended 12 Plantarflexion 55 Inversion 40 Eversion 21 Left Active Ankle/Foot ROM WFL Yes Testing Position Supine Dorsiflexion with Knee Flexed 15 Dorsiflexion with Knee Extended 12 Plantarflexion 38 Inversion 30 Eversion 15 Ankle and Foot ROM Limitations ROM Limitations Muscle Weakness PT-OP-M Strength Start: 01/22/20 16:19 Freq: Status: Active Protocol: Document 01/22/20 16:20 HH (Rec: 01/22/20 17:26 [email or web address]) Knee Strength Knee Manual Muscle Testing Right Flexion (S2) 4+ Good+ Extension (L3) 4+ Good+ Left Flexion (S2) 4+ Good+ Extension (L3) 4+ Good+ Ankle/Foot Strength Ankle and Foot Manual Muscle Testing Right Dorsiflexion (L4) 5 Normal Plantarflexion (S1) 5 Normal Inversion 5 Normal Eversion (S1) 5 Normal Left Dorsiflexion (L4) 4+ Good+ Plantarflexion (S1) 3+ Fair+ Inversion 3+ Fair+ Eversion (S1) 4 Good Toe Strength Toe Manual Muscle Testing Right Great Toe Flexion 5 Normal Extension 5 Normal Left Great Toe Flexion 3+ Fair+ Extension 4+ Good+ Comments 2nd- 5th toes have minimal abduction noted and flexion noted ~ 3/5 PT-OP-Q Treatments Start: 01/22/20 16:19 Freq: Status: Active Protocol: Document 02/28/20 09:51 HH (Rec: 02/28/20 10:41 HH [id number]) Gym Equipment Shuttle Rebound calf raises Reps/Duration #37 Comments noticed L knee tends to bend , discomfort at L achilles SL squat Reps/Duration #37 Therapeutic Exercises Supine Exercises hamstrings stretch Side left Equipment Used long towel Reps/Minutes 2 mins Comments pt noticed L has higher neural tension Sitting Exercises ankle elim ira Side left Reps/Minutes 1 min x 2 Comments pain at top of the foot ankle PF and INV Side left Equipment Used level 2 band Reps/Minutes 10 x 2 Comments for HEP Manual Therapy Treatment Soft Tissue Mobilization post tib. Body Location L Mobilization Type Sustained Pressure,Trigger Point Release Intensity/Depth Moderate Body Position Prone plantar fascia Body Location Bilaterally Mobilization Type Sustained Pressure,Trigger Point Release Intensity/Depth Moderate Body Position Supine gastro Body Location Bilaterally Mobilization Type Sustained Pressure,Trigger Point Release Intensity/Depth Moderate Body Position Prone Comments and achilles Joint Mobilizations forefoot Direction supination and pronation Grade II Body Position Supine Reps/Duration 2 mins PT-OP-T Assessment and Plan Start: 01/22/20 16:19 Freq: Status: Active Protocol: Document 02/28/20 09:51 (Rec: 02/28/20 10:41 [id number]) Physical Therapy Assessment Goals Single leg balance Impairment L SLS = 18s Oil And Gas Drafter Goal (LTG) Pt will improve her SL balance up to 30 seconds with minimal discomfort so she climbs stairs/ steps with minimal discomfort. LTG Duration 8 weeks activity tolerance Impairment unable to stand/ walk > 10 mins Detention Goal (LTG) pt will be able to stand/ walk with a proper gait mechanics >30 mins with minimal pain/ discomfort LTG Duration 8 weeks FAAM Impairment pt scores 20 Short Term Goal (STG) pt will score 49 or greater to improve her over ankle mobility and strength. STG Duration 4 weeks Oil And Gas Drafter Goal (LTG) pt will score 66 or greater to improve her over ankle mobility and strength. LTG Duration 8 weeks Assessment Summary Assessment Pt shows good progress with improved PF and INV strength. Pt started to wear running shoes daily but recommended to start it 2 hours daily then add 30mins -1 hours every week . Added ankle elim ira, leg press and calf raise and noticed has difficulty coordinating with her ankle movements. Pt miriam session well . Physical Therapy Plan Frequency and Duration Frequency of Treatment 2x/Week Duration of Treatment 8 weeks Plan of Care Start Date 01/22/20 Plan of Care End Date 03/22/20 Next Visit Focus/Plan Next Note Type Treatment Note Next Visit Plan review HEP towel scrunch , marble pickup scar mob if needed L foot inversion, toe curls, PF bap board gait training on heel strike and toes push off.
--- NOTE | 2020-03-03 14:45 | PT.OTN ---
Current Diagnoses Effusion, left ankle (03/03/20) Pain in left foot (03/03/20) Other specified postprocedural states (03/03/20) Physical Therapy Treatment Note PT-OP-A Visit Information Start: 01/22/20 16:19 Freq: Status: Active Protocol: Document 03/03/20 13:50 HH (Rec: 03/03/20 14:44 HH [id number]) Out-Patient Physical Therapy Visit Information Visit Information Visit Type Treatment Note Visit Start Time 13:48 Visit Stop Time 14:30 Total Visit Minutes 42 Visit Number 09/26 Number of DESK REPORTER Visits 0 PT-OP-B Current Condition Start: 01/22/20 16:19 Freq: Status: Active Protocol: Document 01/22/20 16:20 HH (Rec: 01/22/20 17:26 HH [email or web address]) Current Condition History of Current Condition Onset Date 08/08/19 Current Complaints L foot pain and numbness, foot weakness with decreased balance History of Current Condition Pt is a 49 yo female here for her L foot pain, numbness, weakness and decreased balance since last year. Pt was found to have a nonenhancing cystic appearaning approximately 2 cm ganglion cyst at the medial ankle deep to the flexor retinaculum abutting the posterior tibial nerve earlier this year and required to have removal of the cyst and decompression of the tarsal tunnel on 08/08/19 . In addition, pt then had infection at surigcal site and required I & D on 09/04/19, along with weeks of wound care tx after. Pt currently still has residual pain at medial ankle and plantar surface especially with pressure at her surgical site; numbness to the entire plantar surface, and dorsal surface of the 4th and 5th toes. Pt noticed she has weakness with her toes since surgery and so does her balance. Her pain, numbness has been significantly limiting her mobility who cannot tolerate standing/ walking/ exercising for more than 10 mins. She also has trouble putting weight on L foot in the morning which requires her to gradually WB on it to start. She is currently taking hydrocodone 10mg every 6-8 hrs a day. Pt also stated she has multiple ankle sprains in the past which her ortho team believes that could be the cause of her ganglion cyst. Prior Treatments and Tests Irrigation debridement skin muscle fascia 20 sq cm or less 09/04/19 removal of ganglion cyst and decompression of the tarsal tunnel 08/08/19 Treatment Goals Patient/Caregiver Goals 1. To regain her foot strength and balance 2. To reduce her foot pain during mobility such as standing/ walking. Personal Factors Other Personal Factors That May Effect fibromyalgia Therapy/Recovery current smoker PT-OP-C Subjective Start: 01/22/20 16:19 Freq: Status: Active Protocol: Document 03/03/20 13:50 HH (Rec: 03/03/20 14:44 HH [id number]) OP-PT Subjective Patient Comments Patient Comments Im wearing my shoes 2 hours / day now but it gets numb and pain at the bottom of the foot . PT-OP-D Balance Start: 01/22/20 16:19 Freq: Status: Active Protocol: Document 01/22/20 16:20 HH (Rec: 01/22/20 17:26 HH [email or web address]) Balance Tests Single Limb Standing Single Limb- Right >45s Single Limb- Left 18s Other Other Balance Tests Performed pain with standing on L foot PT-OP-F Manual Assessment Start: 01/22/20 16:19 Freq: Status: Active Protocol: Document 01/22/20 16:20 HH (Rec: 01/22/20 17:26 HH [email or web address]) Manual Assessments Soft Tissue Assessment Soft Tissue Mobility Assessment TTP below surgical site and report of radiating pain to the entire plantar surface of the L foot PT-OP-G Mobility & Gait Start: 01/22/20 16:19 Freq: Status: Active Protocol: Document 01/22/20 16:20 HH (Rec: 01/22/20 17:26 HH [email or web address]) OP Gait Assessment Factors Limiting Gait Function Factors Limiting Gait Function Decreased Activity Tolerance, Decreased Sensation,Decreased Strength,Limited Range of Motion,Pain,Poor Balance Comments Gait Comments pt walks with flat footed on L side with minimal heel strike and toes push off. PT-OP-J Posture/Palpation/Skin Start: 01/22/20 16:19 Freq: Status: Active Protocol: Document 01/22/20 17:26 HH (Rec: 01/22/20 17:27 HH [email or web address]) Skin Assessment Circumference Measurement L ankle Location figure 8 ( above maleoli then 5th met head) Comments 22 inches R ankle Location figure 8 ( above maleoli then 5th met head) Comments 20 inches PT-OP-K Range of Motion Start: 01/22/20 16:19 Freq: Status: Active Protocol: Document 01/22/20 16:20 HH (Rec: 01/22/20 17:26 [email or web address]) Ankle and Foot Goniometric Range of Motion Ankle and Foot Right Active Ankle/Foot ROM WFL Yes Testing Position Supine Dorsiflexion with Knee Flexed 21 Dorsiflexion with Knee Extended 12 Plantarflexion 55 Inversion 40 Eversion 21 Left Active Ankle/Foot ROM WFL Yes Testing Position Supine Dorsiflexion with Knee Flexed 15 Dorsiflexion with Knee Extended 12 Plantarflexion 38 Inversion 30 Eversion 15 Ankle and Foot ROM Limitations ROM Limitations Muscle Weakness PT-OP-M Strength Start: 01/22/20 16:19 Freq: Status: Active Protocol: Document 01/22/20 16:20 HH (Rec: 01/22/20 17:26 [email or web address]) Knee Strength Knee Manual Muscle Testing Right Flexion (S2) 4+ Good+ Extension (L3) 4+ Good+ Left Flexion (S2) 4+ Good+ Extension (L3) 4+ Good+ Ankle/Foot Strength Ankle and Foot Manual Muscle Testing Right Dorsiflexion (L4) 5 Normal Plantarflexion (S1) 5 Normal Inversion 5 Normal Eversion (S1) 5 Normal Left Dorsiflexion (L4) 4+ Good+ Plantarflexion (S1) 3+ Fair+ Inversion 3+ Fair+ Eversion (S1) 4 Good Toe Strength Toe Manual Muscle Testing Right Great Toe Flexion 5 Normal Extension 5 Normal Left Great Toe Flexion 3+ Fair+ Extension 4+ Good+ Comments 2nd- 5th toes have minimal abduction noted and flexion noted ~ 3/5 PT-OP-Q Treatments Start: 01/22/20 16:19 Freq: Status: Active Protocol: Document 03/03/20 13:50 HH (Rec: 03/03/20 14:44 HH [id number]) Therapeutic Exercises Sitting Exercises ankle [place] Side left Reps/Minutes 1 min x 2 Comments pain at lateral maleoli but decreased after fibular mobilization. Standing Exercises balance discs Standing Exercise Name blue and yellow Side bilateral Equipment Used without support Reps/Minutes 6 mins Comments no discomfort noted. ankle board Standing Exercise Name PF , DF Side bilateral Reps/Minutes 2 mins Comments tightness at L heel noted. Manual Therapy Treatment Soft Tissue Mobilization scar tissue Body Location medial malleoli Mobilization Type Cross-Friction,Sustained Pressure,Trigger Point Release Intensity/Depth Moderate Body Position Supine Comments inferior and superior post tib. Body Location L Mobilization Type Sustained Pressure,Trigger Point Release Intensity/Depth Moderate Body Position Prone plantar fascia Body Location Bilaterally Mobilization Type Sustained Pressure,Trigger Point Release Intensity/Depth Moderate Body Position Supine Joint Mobilizations fibular glide Joint tibial fibular distal joint Direction posterior Grade II Body Position Supine Reps/Duration 4 mins Comments pain reduced for ankle [place] after forefoot Direction supination and pronation Grade II Body Position Supine Reps/Duration 2 mins PT-OP-T Assessment and Plan Start: 01/22/20 16:19 Freq: Status: Active Protocol: Document 03/03/20 13:50 HH (Rec: 03/03/20 14:44 HH [id number]) Physical Therapy Assessment Goals Single leg balance Impairment L SLS = 18s Area Loss Prevention Manager Goal (LTG) Pt will improve her SL balance up to 30 seconds with minimal discomfort so she climbs stairs/ steps with minimal discomfort. LTG Duration 8 weeks activity tolerance Impairment unable to stand/ walk > 10 mins Retirement Goal (LTG) pt will be able to stand/ walk with a proper gait mechanics >30 mins with minimal pain/ discomfort LTG Duration 8 weeks FAAM Impairment pt scores 20 Short Term Goal (STG) pt will score 49 or greater to improve her over ankle mobility and strength. STG Duration 4 weeks Area Loss Prevention Manager Goal (LTG) pt will score 66 or greater to improve her over ankle mobility and strength. LTG Duration 8 weeks LEFS Impairment pt scores 23 Short Term Goal (STG) Pt will score 47 or greater on LEFS to improve her functional mobility STG Duration 4 weeks Retirement Goal (LTG) Pt will score 62 or greater on LEFS to improve her functional mobility and quality of life LTG Duration 8 weeks Assessment Summary Assessment Pt cont to have good progress with PF and INV. She started wearing shoes for up to 2 hrs/ day. Noticed pt has lateral ankle pain during AROM but got better after post glide of fibula. Added standing balance ex today and she miriam well. Physical Therapy Plan Frequency and Duration Frequency of Treatment 2x/Week Duration of Treatment 8 weeks Plan of Care Start Date 01/22/20 Plan of Care End Date 03/22/20 Next Visit Focus/Plan Next Note Type Treatment Note Next Visit Plan review HEP towel scrunch , marble pickup scar mob if needed L foot inversion, toe curls, PF bap board gait training on heel strike and toes push off. blaance training
--- NOTE | 2020-03-06 16:27 | PT.OTN ---
Current Diagnoses Effusion, left ankle (03/06/20) Pain in left foot (03/06/20) Other specified postprocedural states (03/06/20) Physical Therapy Treatment Note PT-OP-A Visit Information Start: 01/22/20 16:19 Freq: Status: Active Protocol: Document 03/06/20 13:48 HH (Rec: 03/06/20 16:27 HH [id number]) Out-Patient Physical Therapy Visit Information Visit Information Visit Type Treatment Note Visit Start Time 13:47 Visit Stop Time 14:30 Total Visit Minutes 43 Visit Number 10/26 Number of MUCKER OPERATOR Visits 0 PT-OP-B Current Condition Start: 01/22/20 16:19 Freq: Status: Active Protocol: Document 01/22/20 16:20 HH (Rec: 01/22/20 17:26 HH [email or web address]) Current Condition History of Current Condition Onset Date 08/08/19 Current Complaints L foot pain and numbness, foot weakness with decreased balance History of Current Condition Pt is a 49 yo female here for her L foot pain, numbness, weakness and decreased balance since last year. Pt was found to have a nonenhancing cystic appearaning approximately 2 cm ganglion cyst at the medial ankle deep to the flexor retinaculum abutting the posterior tibial nerve earlier this year and required to have removal of the cyst and decompression of the tarsal tunnel on 08/08/19 . In addition, pt then had infection at surigcal site and required I & D on 09/04/19, along with weeks of wound care tx after. Pt currently still has residual pain at medial ankle and plantar surface especially with pressure at her surgical site; numbness to the entire plantar surface, and dorsal surface of the 4th and 5th toes. Pt noticed she has weakness with her toes since surgery and so does her balance. Her pain, numbness has been significantly limiting her mobility who cannot tolerate standing/ walking/ exercising for more than 10 mins. She also has trouble putting weight on L foot in the morning which requires her to gradually WB on it to start. She is currently taking hydrocodone 10mg every 6-8 hrs a day. Pt also stated she has multiple ankle sprains in the past which her ortho team believes that could be the cause of her ganglion cyst. Prior Treatments and Tests Irrigation debridement skin muscle fascia 20 sq cm or less 09/04/19 removal of ganglion cyst and decompression of the tarsal tunnel 08/08/19 Treatment Goals Patient/Caregiver Goals 1. To regain her foot strength and balance 2. To reduce her foot pain during mobility such as standing/ walking. Personal Factors Other Personal Factors That May Effect fibromyalgia Therapy/Recovery current smoker PT-OP-C Subjective Start: 01/22/20 16:19 Freq: Status: Active Protocol: Document 03/06/20 13:48 HH (Rec: 03/06/20 16:27 HH [id number]) OP-PT Subjective Patient Comments Patient Comments My heels and achilles tendons on both sides have been hurting. PT-OP-D Balance Start: 01/22/20 16:19 Freq: Status: Active Protocol: Document 01/22/20 16:20 HH (Rec: 01/22/20 17:26 HH [email or web address]) Balance Tests Single Limb Standing Single Limb- Right >45s Single Limb- Left 18s Other Other Balance Tests Performed pain with standing on L foot PT-OP-F Manual Assessment Start: 01/22/20 16:19 Freq: Status: Active Protocol: Document 01/22/20 16:20 HH (Rec: 01/22/20 17:26 HH [email or web address]) Manual Assessments Soft Tissue Assessment Soft Tissue Mobility Assessment TTP below surgical site and report of radiating pain to the entire plantar surface of the L foot PT-OP-G Mobility & Gait Start: 01/22/20 16:19 Freq: Status: Active Protocol: Document 01/22/20 16:20 HH (Rec: 01/22/20 17:26 HH [email or web address]) OP Gait Assessment Factors Limiting Gait Function Factors Limiting Gait Function Decreased Activity Tolerance, Decreased Sensation,Decreased Strength,Limited Range of Motion,Pain,Poor Balance Comments Gait Comments pt walks with flat footed on L side with minimal heel strike and toes push off. PT-OP-J Posture/Palpation/Skin Start: 01/22/20 16:19 Freq: Status: Active Protocol: Document 01/22/20 17:26 HH (Rec: 01/22/20 17:27 HH [email or web address]) Skin Assessment Circumference Measurement L ankle Location figure 8 ( above maleoli then 5th met head) Comments 22 inches R ankle Location figure 8 ( above maleoli then 5th met head) Comments 20 inches PT-OP-K Range of Motion Start: 01/22/20 16:19 Freq: Status: Active Protocol: Document 01/22/20 16:20 HH (Rec: 01/22/20 17:26 [email or web address]) Ankle and Foot Goniometric Range of Motion Ankle and Foot Right Active Ankle/Foot ROM WFL Yes Testing Position Supine Dorsiflexion with Knee Flexed 21 Dorsiflexion with Knee Extended 12 Plantarflexion 55 Inversion 40 Eversion 21 Left Active Ankle/Foot ROM WFL Yes Testing Position Supine Dorsiflexion with Knee Flexed 15 Dorsiflexion with Knee Extended 12 Plantarflexion 38 Inversion 30 Eversion 15 Ankle and Foot ROM Limitations ROM Limitations Muscle Weakness PT-OP-M Strength Start: 01/22/20 16:19 Freq: Status: Active Protocol: Document 01/22/20 16:20 HH (Rec: 01/22/20 17:26 [email or web address]) Knee Strength Knee Manual Muscle Testing Right Flexion (S2) 4+ Good+ Extension (L3) 4+ Good+ Left Flexion (S2) 4+ Good+ Extension (L3) 4+ Good+ Ankle/Foot Strength Ankle and Foot Manual Muscle Testing Right Dorsiflexion (L4) 5 Normal Plantarflexion (S1) 5 Normal Inversion 5 Normal Eversion (S1) 5 Normal Left Dorsiflexion (L4) 4+ Good+ Plantarflexion (S1) 3+ Fair+ Inversion 3+ Fair+ Eversion (S1) 4 Good Toe Strength Toe Manual Muscle Testing Right Great Toe Flexion 5 Normal Extension 5 Normal Left Great Toe Flexion 3+ Fair+ Extension 4+ Good+ Comments 2nd- 5th toes have minimal abduction noted and flexion noted ~ 3/5 PT-OP-Q Treatments Start: 01/22/20 16:19 Freq: Status: Active Protocol: Document 03/06/20 13:48 HH (Rec: 03/06/20 16:27 [id number]) Therapeutic Exercises Supine Exercises hamstrings stretch Supine Exercise Name with ankle DF Side left Equipment Used long towel Reps/Minutes 2 mins Comments pt noticed L has higher neural tension Sitting Exercises calf and soleus stretch Side left Equipment Used gait belt Reps/Minutes 10-15 secs hold Comments for HEP Standing Exercises balance discs Standing Exercise Name blue and yellow Side bilateral Equipment Used without support Reps/Minutes 6 mins Comments improved performance ankle board Standing Exercise Name PF , DF Side bilateral Reps/Minutes 2 mins Comments tightness at L heel noted. Manual Therapy Treatment Soft Tissue Mobilization scar tissue Body Location medial and lateral malleoli Mobilization Type Cross-Friction,Sustained Pressure,Trigger Point Release Intensity/Depth Moderate Body Position Supine Comments inferior and superior post tib. Body Location L Mobilization Type Sustained Pressure,Trigger Point Release Intensity/Depth Moderate Body Position Prone gastro Body Location Bilaterally Mobilization Type Sustained Pressure,Trigger Point Release Intensity/Depth Moderate Body Position Prone Comments and achilles. In superior direction. Joint Mobilizations fibular glide Joint tibial fibular distal joint Direction posterior Grade II Body Position Supine Reps/Duration 4 mins Comments pain reduced for ankle [place] after Manual Traction TC joint Details Distraction Body Position Supine Reps/Duration 5 s x2 PT-OP-T Assessment and Plan Start: 01/22/20 16:19 Freq: Status: Active Protocol: Document 03/06/20 13:48 HH (Rec: 03/06/20 16:27 HH [email or web address]) Physical Therapy Assessment Goals Single leg balance Impairment L SLS = 18s Gasoline Catalyst Operator Goal (LTG) Pt will improve her SL balance up to 30 seconds with minimal discomfort so she climbs stairs/ steps with minimal discomfort. LTG Duration 8 weeks activity tolerance Impairment unable to stand/ walk > 10 mins Gasoline Catalyst Operator Goal (LTG) pt will be able to stand/ walk with a proper gait mechanics >30 mins with minimal pain/ discomfort LTG Duration 8 weeks FAAM Impairment pt scores 20 Short Term Goal (STG) pt will score 49 or greater to improve her over ankle mobility and strength. STG Duration 4 weeks Gasoline Catalyst Operator Goal (LTG) pt will score 66 or greater to improve her over ankle mobility and strength. LTG Duration 8 weeks LEFS Impairment pt scores 23 Short Term Goal (STG) Pt will score 47 or greater on LEFS to improve her functional mobility STG Duration 4 weeks Gasoline Catalyst Operator Goal (LTG) Pt will score 62 or greater on LEFS to improve her functional mobility and quality of life LTG Duration 8 weeks Assessment Summary Assessment Pt cont to have some heel pain that is worse in the morning. Tx focused on gastro and soleus stretch and STM. Pt felt better after but she has difficulty stretching both muscles in standing position d /t pain but able to miriam seated calf stretch. Physical Therapy Plan Frequency and Duration Frequency of Treatment 2x/Week Duration of Treatment 8 weeks Plan of Care Start Date 01/22/20 Plan of Care End Date 03/22/20 Next Visit Focus/Plan Next Note Type Treatment Note Next Visit Plan scar mob if needed L foot inversion, toe curls, PF bap board gait training on heel strike and toes push off. blaance training uneven surface
--- NOTE | 2020-03-10 16:16 | PT.OTN ---
Current Diagnoses Effusion, left ankle (03/10/20) Pain in left foot (03/10/20) Other specified postprocedural states (03/10/20) Physical Therapy Treatment Note PT-OP-A Visit Information Start: 01/22/20 16:19 Freq: Status: Active Protocol: Document 03/10/20 14:34 HH (Rec: 03/10/20 16:16 HH [id number]) Out-Patient Physical Therapy Visit Information Visit Information Visit Type Treatment Note Visit Start Time 14:35 Visit Stop Time 15:15 Total Visit Minutes 40 Visit Number 11/26 Number of FOREPART RASPER Visits 0 PT-OP-B Current Condition Start: 01/22/20 16:19 Freq: Status: Active Protocol: Document 01/22/20 16:20 HH (Rec: 01/22/20 17:26 HH [email or web address]) Current Condition History of Current Condition Onset Date 08/08/19 Current Complaints L foot pain and numbness, foot weakness with decreased balance History of Current Condition Pt is a 49 yo female here for her L foot pain, numbness, weakness and decreased balance since last year. Pt was found to have a nonenhancing cystic appearaning approximately 2 cm ganglion cyst at the medial ankle deep to the flexor retinaculum abutting the posterior tibial nerve earlier this year and required to have removal of the cyst and decompression of the tarsal tunnel on 08/08/19 . In addition, pt then had infection at surigcal site and required I & D on 09/04/19, along with weeks of wound care tx after. Pt currently still has residual pain at medial ankle and plantar surface especially with pressure at her surgical site; numbness to the entire plantar surface, and dorsal surface of the 4th and 5th toes. Pt noticed she has weakness with her toes since surgery and so does her balance. Her pain, numbness has been significantly limiting her mobility who cannot tolerate standing/ walking/ exercising for more than 10 mins. She also has trouble putting weight on L foot in the morning which requires her to gradually WB on it to start. She is currently taking hydrocodone 10mg every 6-8 hrs a day. Pt also stated she has multiple ankle sprains in the past which her ortho team believes that could be the cause of her ganglion cyst. Prior Treatments and Tests Irrigation debridement skin muscle fascia 20 sq cm or less 09/04/19 removal of ganglion cyst and decompression of the tarsal tunnel 08/08/19 Treatment Goals Patient/Caregiver Goals 1. To regain her foot strength and balance 2. To reduce her foot pain during mobility such as standing/ walking. Personal Factors Other Personal Factors That May Effect fibromyalgia Therapy/Recovery current smoker PT-OP-C Subjective Start: 01/22/20 16:19 Freq: Status: Active Protocol: Document 03/10/20 14:34 HH (Rec: 03/10/20 16:16 HH [id number]) OP-PT Subjective Patient Comments Patient Comments I had a chiropractic adjustment on Tuesday and he did a manipulation on me and gave me a heel lift which was hurting me a lot. I also took a hard step on tuesday. So these 2 incidents kind of aggravate my foot pain. But my heels seem to get a little better. Patient Reported Progress Same PT-OP-D Balance Start: 01/22/20 16:19 Freq: Status: Active Protocol: Document 01/22/20 16:20 HH (Rec: 01/22/20 17:26 HH [email or web address]) Balance Tests Single Limb Standing Single Limb- Right >45s Single Limb- Left 18s Other Other Balance Tests Performed pain with standing on L foot PT-OP-F Manual Assessment Start: 01/22/20 16:19 Freq: Status: Active Protocol: Document 01/22/20 16:20 HH (Rec: 01/22/20 17:26 [email or web address]) Manual Assessments Soft Tissue Assessment Soft Tissue Mobility Assessment TTP below surgical site and report of radiating pain to the entire plantar surface of the L foot PT-OP-G Mobility & Gait Start: 01/22/20 16:19 Freq: Status: Active Protocol: Document 01/22/20 16:20 HH (Rec: 01/22/20 17:26 HH [email or web address]) OP Gait Assessment Factors Limiting Gait Function Factors Limiting Gait Function Decreased Activity Tolerance, Decreased Sensation,Decreased Strength,Limited Range of Motion,Pain,Poor Balance Comments Gait Comments pt walks with flat footed on L side with minimal heel strike and toes push off. PT-OP-J Posture/Palpation/Skin Start: 01/22/20 16:19 Freq: Status: Active Protocol: Document 01/22/20 17:26 HH (Rec: 01/22/20 17:27 HH [email or web address]) Skin Assessment Circumference Measurement L ankle Location figure 8 ( above maleoli then 5th met head) Comments 22 inches R ankle Location figure 8 ( above maleoli then 5th met head) Comments 20 inches PT-OP-K Range of Motion Start: 01/22/20 16:19 Freq: Status: Active Protocol: Document 01/22/20 16:20 HH (Rec: 01/22/20 17:26 [email or web address]) Ankle and Foot Goniometric Range of Motion Ankle and Foot Right Active Ankle/Foot ROM WFL Yes Testing Position Supine Dorsiflexion with Knee Flexed 21 Dorsiflexion with Knee Extended 12 Plantarflexion 55 Inversion 40 Eversion 21 Left Active Ankle/Foot ROM WFL Yes Testing Position Supine Dorsiflexion with Knee Flexed 15 Dorsiflexion with Knee Extended 12 Plantarflexion 38 Inversion 30 Eversion 15 Ankle and Foot ROM Limitations ROM Limitations Muscle Weakness PT-OP-M Strength Start: 01/22/20 16:19 Freq: Status: Active Protocol: Document 01/22/20 16:20 (Rec: 01/22/20 17:26 [email or web address]) Knee Strength Knee Manual Muscle Testing Right Flexion (S2) 4+ Good+ Extension (L3) 4+ Good+ Left Flexion (S2) 4+ Good+ Extension (L3) 4+ Good+ Ankle/Foot Strength Ankle and Foot Manual Muscle Testing Right Dorsiflexion (L4) 5 Normal Plantarflexion (S1) 5 Normal Inversion 5 Normal Eversion (S1) 5 Normal Left Dorsiflexion (L4) 4+ Good+ Plantarflexion (S1) 3+ Fair+ Inversion 3+ Fair+ Eversion (S1) 4 Good Toe Strength Toe Manual Muscle Testing Right Great Toe Flexion 5 Normal Extension 5 Normal Left Great Toe Flexion 3+ Fair+ Extension 4+ Good+ Comments 2nd- 5th toes have minimal abduction noted and flexion noted ~ 3/5 PT-OP-Q Treatments Start: 01/22/20 16:19 Freq: Status: Active Protocol: Document 03/10/20 14:34 HH (Rec: 03/10/20 16:16 [id number]) Therapeutic Exercises Standing Exercises calf and soleus stretch Standing Exercise Name after post glide Side left Comments no top foot pain, able to feel the stretch. balance discs Standing Exercise Name blue and yellow with squat stance Side bilateral Equipment Used without support Reps/Minutes 6 mins Comments improved performance noted. Gait Training Gait Activity stance phase Description PA rocking pattern Level of Assistance with grab bar support Surface ground level Distance/Duration in place Treatment Focus stance phase on L Comments heel strike to mid stance to preswing with heel off, hold on to grab bar. No pain noted except push off through big toes. Manual Therapy Treatment Soft Tissue Mobilization scar tissue Body Location medial and lateral malleoli Mobilization Type Cross-Friction,Sustained Pressure,Trigger Point Release Intensity/Depth Moderate Body Position Supine Comments inferior and superior post tib. Body Location L Mobilization Type Sustained Pressure,Trigger Point Release Intensity/Depth Moderate Body Position Prone gastro Body Location Bilaterally Mobilization Type Sustained Pressure,Trigger Point Release Intensity/Depth Moderate Body Position Prone Comments and achilles. In superior direction. Joint Mobilizations posterior glide Joint Talocural joint Direction posterior glide Grade III Body Position Supine Reps/Duration 4 mins Comments with passive DF. Her superior foot pain resolved after. fibular glide Joint tibial fibular distal joint Direction posterior Grade II Body Position Supine Reps/Duration 4 mins Comments pain reduced for ankle [place] after forefoot Direction supination and pronation Grade II Body Position Supine Reps/Duration 2 mins Manual Traction TC joint Details Distraction Body Position Supine Reps/Duration 5 s x2 PT-OP-T Assessment and Plan Start: 01/22/20 16:19 Freq: Status: Active Protocol: Document 03/10/20 14:34 HH (Rec: 03/10/20 16:16 [id number]) Physical Therapy Assessment Goals Single leg balance Impairment L SLS = 18s [employer] Rec[employer]iter Goal (LTG) Pt will improve her SL balance up to 30 seconds with minimal discomfort so she climbs stairs/ steps with minimal discomfort. LTG Duration 8 weeks activity tolerance Impairment unable to stand/ walk > 10 mins [employer] Goal (LTG) pt will be able to stand/ walk with a proper gait mechanics >30 mins with minimal pain/ discomfort LTG Duration 8 weeks FAAM Impairment pt scores 20 Short Term Goal (STG) pt will score 49 or greater to improve her over ankle mobility and strength. STG Duration 4 weeks Assisted Goal (LTG) pt will score 66 or greater to improve her over ankle mobility and strength. LTG Duration 8 weeks LEFS Impairment pt scores 23 Short Term Goal (STG) Pt will score 47 or greater on LEFS to improve her functional mobility STG Duration 4 weeks Assisted Goal (LTG) Pt will score 62 or greater on LEFS to improve her functional mobility and quality of life LTG Duration 8 weeks Assessment Summary Assessment Pt has worsening symptoms during weekend after her chiropractic treatment and accidentally stumbled on Sat. However, noticed pt has improved TC lateral mobility. Pt also reports resolved pain at top of her foot after posterior glide of TC joint. Added gait training with stance phase on LLE today. Physical Therapy Plan Frequency and Duration Frequency of Treatment 2x/Week Duration of Treatment 8 weeks Plan of Care Start Date 01/22/20 Plan of Care End Date 03/22/20 Next Visit Focus/Plan Next Note Type Treatment Note Next Visit Plan scar mob if needed L foot inversion, toe curls, PF bap board gait training on heel strike and toes push off. blaance training uneven surface
--- NOTE | 2020-03-13 15:45 | PT.OTN ---
Current Diagnoses Effusion, left ankle (03/13/20) Pain in left foot (03/13/20) Other specified postprocedural states (03/13/20) Physical Therapy Treatment Note PT-OP-A Visit Information Start: 01/22/20 16:19 Freq: Status: Active Protocol: Document 03/13/20 14:35 HH (Rec: 03/13/20 15:45 HH [id number]) Out-Patient Physical Therapy Visit Information Visit Information Visit Type Treatment Note Visit Start Time 14:35 Visit Stop Time 15:16 Total Visit Minutes 41 Visit Number 12/26 Number of COATER SLATE Visits 0 PT-OP-B Current Condition Start: 01/22/20 16:19 Freq: Status: Active Protocol: Document 01/22/20 16:20 HH (Rec: 01/22/20 17:26 HH [email or web address]) Current Condition History of Current Condition Onset Date 08/08/19 Current Complaints L foot pain and numbness, foot weakness with decreased balance History of Current Condition Pt is a 49 yo female here for her L foot pain, numbness, weakness and decreased balance since last year. Pt was found to have a nonenhancing cystic appearaning approximately 2 cm ganglion cyst at the medial ankle deep to the flexor retinaculum abutting the posterior tibial nerve earlier this year and required to have removal of the cyst and decompression of the tarsal tunnel on 08/08/19 . In addition, pt then had infection at surigcal site and required I & D on 09/04/19, along with weeks of wound care tx after. Pt currently still has residual pain at medial ankle and plantar surface especially with pressure at her surgical site; numbness to the entire plantar surface, and dorsal surface of the 4th and 5th toes. Pt noticed she has weakness with her toes since surgery and so does her balance. Her pain, numbness has been significantly limiting her mobility who cannot tolerate standing/ walking/ exercising for more than 10 mins. She also has trouble putting weight on L foot in the morning which requires her to gradually WB on it to start. She is currently taking hydrocodone 10mg every 6-8 hrs a day. Pt also stated she has multiple ankle sprains in the past which her ortho team believes that could be the cause of her ganglion cyst. Prior Treatments and Tests Irrigation debridement skin muscle fascia 20 sq cm or less 09/04/19 removal of ganglion cyst and decompression of the tarsal tunnel 08/08/19 Treatment Goals Patient/Caregiver Goals 1. To regain her foot strength and balance 2. To reduce her foot pain during mobility such as standing/ walking. Personal Factors Other Personal Factors That May Effect fibromyalgia Therapy/Recovery current smoker PT-OP-C Subjective Start: 01/22/20 16:19 Freq: Status: Active Protocol: Document 03/13/20 14:35 HH (Rec: 03/13/20 15:45 HH [id number]) OP-PT Subjective Patient Comments Patient Comments I am a hot mess. I dropped something on my L big toe and broke my toe nail. My balance sucks. I was so wobbly when I did my walking exercise. However, my top foot pain is less and able to put more weight on my foot while walking Patient Reported Progress Same PT-OP-D Balance Start: 01/22/20 16:19 Freq: Status: Active Protocol: Document 01/22/20 16:20 HH (Rec: 01/22/20 17:26 HH [email or web address]) Balance Tests Single Limb Standing Single Limb- Right >45s Single Limb- Left 18s Other Other Balance Tests Performed pain with standing on L foot PT-OP-F Manual Assessment Start: 01/22/20 16:19 Freq: Status: Active Protocol: Document 01/22/20 16:20 HH (Rec: 01/22/20 17:26 HH [email or web address]) Manual Assessments Soft Tissue Assessment Soft Tissue Mobility Assessment TTP below surgical site and report of radiating pain to the entire plantar surface of the L foot PT-OP-G Mobility & Gait Start: 01/22/20 16:19 Freq: Status: Active Protocol: Document 01/22/20 16:20 HH (Rec: 01/22/20 17:26 HH [email or web address]) OP Gait Assessment Factors Limiting Gait Function Factors Limiting Gait Function Decreased Activity Tolerance, Decreased Sensation,Decreased Strength,Limited Range of Motion,Pain,Poor Balance Comments Gait Comments pt walks with flat footed on L side with minimal heel strike and toes push off. PT-OP-J Posture/Palpation/Skin Start: 01/22/20 16:19 Freq: Status: Active Protocol: Document 01/22/20 17:26 HH (Rec: 01/22/20 17:27 HH [email or web address]) Skin Assessment Circumference Measurement L ankle Location figure 8 ( above maleoli then 5th met head) Comments 22 inches R ankle Location figure 8 ( above maleoli then 5th met head) Comments 20 inches PT-OP-K Range of Motion Start: 01/22/20 16:19 Freq: Status: Active Protocol: Document 01/22/20 16:20 HH (Rec: 01/22/20 17:26 [email or web address]) Ankle and Foot Goniometric Range of Motion Ankle and Foot Right Active Ankle/Foot ROM WFL Yes Testing Position Supine Dorsiflexion with Knee Flexed 21 Dorsiflexion with Knee Extended 12 Plantarflexion 55 Inversion 40 Eversion 21 Left Active Ankle/Foot ROM WFL Yes Testing Position Supine Dorsiflexion with Knee Flexed 15 Dorsiflexion with Knee Extended 12 Plantarflexion 38 Inversion 30 Eversion 15 Ankle and Foot ROM Limitations ROM Limitations Muscle Weakness PT-OP-M Strength Start: 01/22/20 16:19 Freq: Status: Active Protocol: Document 01/22/20 16:20 HH (Rec: 01/22/20 17:26 [email or web address]) Knee Strength Knee Manual Muscle Testing Right Flexion (S2) 4+ Good+ Extension (L3) 4+ Good+ Left Flexion (S2) 4+ Good+ Extension (L3) 4+ Good+ Ankle/Foot Strength Ankle and Foot Manual Muscle Testing Right Dorsiflexion (L4) 5 Normal Plantarflexion (S1) 5 Normal Inversion 5 Normal Eversion (S1) 5 Normal Left Dorsiflexion (L4) 4+ Good+ Plantarflexion (S1) 3+ Fair+ Inversion 3+ Fair+ Eversion (S1) 4 Good Toe Strength Toe Manual Muscle Testing Right Great Toe Flexion 5 Normal Extension 5 Normal Left Great Toe Flexion 3+ Fair+ Extension 4+ Good+ Comments 2nd- 5th toes have minimal abduction noted and flexion noted ~ 3/5 PT-OP-Q Treatments Start: 01/22/20 16:19 Freq: Status: Active Protocol: Document 03/13/20 14:35 HH (Rec: 03/13/20 15:45 [id number]) Therapeutic Exercises Supine Exercises ankle PF Side left Resistance light blue theraband Reps/Minutes 10 x2 Comments c/o discomfort in the heel ankle INV Side left Resistance light blue theraband Reps/Minutes 10 x2 Gait Training Gait Activity stance phase Description PA rocking pattern Level of Assistance with grab bar support Surface ground level Distance/Duration in place Treatment Focus stance phase on L Comments heel strike to mid stance to preswing with heel off, hold on to grab bar. No pain noted except push off through big toes. Manual Therapy Treatment Soft Tissue Mobilization scar tissue Body Location medial and lateral malleoli Mobilization Type Cross-Friction,Sustained Pressure,Trigger Point Release Intensity/Depth Moderate Body Position Supine Comments inferior and superior Joint Mobilizations posterior glide Joint Talocural joint Direction posterior glide Grade III Body Position Supine Reps/Duration 4 mins Comments with passive DF. Her superior foot pain resolved after. fibular glide Joint tibial fibular distal joint Direction posterior Grade II Body Position Supine Reps/Duration 4 mins Comments pain reduced for ankle [place] after forefoot Direction supination and pronation Grade II Body Position Supine Reps/Duration 2 mins PT-OP-T Assessment and Plan Start: 01/22/20 16:19 Freq: Status: Active Protocol: Document 03/13/20 14:35 HH (Rec: 03/13/20 15:45 HH [id number]) Physical Therapy Assessment Goals Single leg balance Impairment L SLS = 18s Retirement Goal (LTG) Pt will improve her SL balance up to 30 seconds with minimal discomfort so she climbs stairs/ steps with minimal discomfort. LTG Duration 8 weeks activity tolerance Impairment unable to stand/ walk > 10 mins Retirement Goal (LTG) pt will be able to stand/ walk with a proper gait mechanics >30 mins with minimal pain/ discomfort LTG Duration 8 weeks FAAM Impairment pt scores 20 Short Term Goal (STG) pt will score 49 or greater to improve her over ankle mobility and strength. STG Duration 4 weeks Retirement Goal (LTG) pt will score 66 or greater to improve her over ankle mobility and strength. LTG Duration 8 weeks LEFS Impairment pt scores 23 Short Term Goal (STG) Pt will score 47 or greater on LEFS to improve her functional mobility STG Duration 4 weeks Retirement Goal (LTG) Pt will score 62 or greater on LEFS to improve her functional mobility and quality of life LTG Duration 8 weeks Assessment Summary Assessment Pt cont to have heel pain that is worse in the morning, which gets better by stretching and moving as day progresses. Pt c/o unsteadiness when performing home gait execise. Pt was instructed to do it at home with UE support. Pt demonstrated understanding of the exericse in clinic. Pt had difficulty with achieving gastro/soleus stretch today d/ t top foor pain. Physical Therapy Plan Frequency and Duration Frequency of Treatment 2x/Week Duration of Treatment 8 weeks Plan of Care Start Date 01/22/20 Plan of Care End Date 03/22/20 Next Visit Focus/Plan Next Note Type Treatment Note Next Visit Plan scar mob if needed L foot inversion, toe curls, PF bap board gait training on heel strike and toes push off. blaance training uneven surface
--- NOTE | 2020-03-17 14:46 | PT.OTN ---
Current Diagnoses Effusion, left ankle (03/17/20) Pain in left foot (03/17/20) Other specified postprocedural states (03/17/20) Physical Therapy Treatment Note PT-OP-A Visit Information Start: 01/22/20 16:19 Freq: Status: Active Protocol: Document 03/17/20 14:32 HH (Rec: 03/17/20 14:45 HH [id number]) Out-Patient Physical Therapy Visit Information Visit Information Visit Type Treatment Note Visit Start Time 13:05 Visit Stop Time 13:44 Total Visit Minutes 39 Visit Number 01/26 Number of HORTICULTURAL FARMER Visits 0 PT-OP-B Current Condition Start: 01/22/20 16:19 Freq: Status: Active Protocol: Document 01/22/20 16:20 HH (Rec: 01/22/20 17:26 HH [email or web address]) Current Condition History of Current Condition Onset Date 08/08/19 Current Complaints L foot pain and numbness, foot weakness with decreased balance History of Current Condition Pt is a 49 yo female here for her L foot pain, numbness, weakness and decreased balance since last year. Pt was found to have a nonenhancing cystic appearaning approximately 2 cm ganglion cyst at the medial ankle deep to the flexor retinaculum abutting the posterior tibial nerve earlier this year and required to have removal of the cyst and decompression of the tarsal tunnel on 08/08/19 . In addition, pt then had infection at surigcal site and required I & D on 09/04/19, along with weeks of wound care tx after. Pt currently still has residual pain at medial ankle and plantar surface especially with pressure at her surgical site; numbness to the entire plantar surface, and dorsal surface of the 4th and 5th toes. Pt noticed she has weakness with her toes since surgery and so does her balance. Her pain, numbness has been significantly limiting her mobility who cannot tolerate standing/ walking/ exercising for more than 10 mins. She also has trouble putting weight on L foot in the morning which requires her to gradually WB on it to start. She is currently taking hydrocodone 10mg every 6-8 hrs a day. Pt also stated she has multiple ankle sprains in the past which her ortho team believes that could be the cause of her ganglion cyst. Prior Treatments and Tests Irrigation debridement skin muscle fascia 20 sq cm or less 09/04/19 removal of ganglion cyst and decompression of the tarsal tunnel 08/08/19 Treatment Goals Patient/Caregiver Goals 1. To regain her foot strength and balance 2. To reduce her foot pain during mobility such as standing/ walking. Personal Factors Other Personal Factors That May Effect fibromyalgia Therapy/Recovery current smoker PT-OP-C Subjective Start: 01/22/20 16:19 Freq: Status: Active Protocol: Document 03/17/20 14:32 HH (Rec: 03/17/20 14:45 HH [id number]) OP-PT Subjective Patient Comments Patient Comments I feel better in general and able to miriam wearing shoes more and more. Wearing sandals does not feel good anymore. But i still have discomfort on top of my L foot Patient Reported Progress Improving PT-OP-D Balance Start: 01/22/20 16:19 Freq: Status: Active Protocol: Document 01/22/20 16:20 HH (Rec: 01/22/20 17:26 HH [email or web address]) Balance Tests Single Limb Standing Single Limb- Right >45s Single Limb- Left 18s Other Other Balance Tests Performed pain with standing on L foot PT-OP-F Manual Assessment Start: 01/22/20 16:19 Freq: Status: Active Protocol: Document 01/22/20 16:20 HH (Rec: 01/22/20 17:26 HH [email or web address]) Manual Assessments Soft Tissue Assessment Soft Tissue Mobility Assessment TTP below surgical site and report of radiating pain to the entire plantar surface of the L foot PT-OP-G Mobility & Gait Start: 01/22/20 16:19 Freq: Status: Active Protocol: Document 01/22/20 16:20 HH (Rec: 01/22/20 17:26 HH [email or web address]) OP Gait Assessment Factors Limiting Gait Function Factors Limiting Gait Function Decreased Activity Tolerance, Decreased Sensation,Decreased Strength,Limited Range of Motion,Pain,Poor Balance Comments Gait Comments pt walks with flat footed on L side with minimal heel strike and toes push off. PT-OP-J Posture/Palpation/Skin Start: 01/22/20 16:19 Freq: Status: Active Protocol: Document 01/22/20 17:26 HH (Rec: 01/22/20 17:27 HH [email or web address]) Skin Assessment Circumference Measurement L ankle Location figure 8 ( above maleoli then 5th met head) Comments 22 inches R ankle Location figure 8 ( above maleoli then 5th met head) Comments 20 inches PT-OP-K Range of Motion Start: 01/22/20 16:19 Freq: Status: Active Protocol: Document 01/22/20 16:20 HH (Rec: 01/22/20 17:26 [email or web address]) Ankle and Foot Goniometric Range of Motion Ankle and Foot Right Active Ankle/Foot ROM WFL Yes Testing Position Supine Dorsiflexion with Knee Flexed 21 Dorsiflexion with Knee Extended 12 Plantarflexion 55 Inversion 40 Eversion 21 Left Active Ankle/Foot ROM WFL Yes Testing Position Supine Dorsiflexion with Knee Flexed 15 Dorsiflexion with Knee Extended 12 Plantarflexion 38 Inversion 30 Eversion 15 Ankle and Foot ROM Limitations ROM Limitations Muscle Weakness PT-OP-M Strength Start: 01/22/20 16:19 Freq: Status: Active Protocol: Document 01/22/20 16:20 HH (Rec: 01/22/20 17:26 [email or web address]) Knee Strength Knee Manual Muscle Testing Right Flexion (S2) 4+ Good+ Extension (L3) 4+ Good+ Left Flexion (S2) 4+ Good+ Extension (L3) 4+ Good+ Ankle/Foot Strength Ankle and Foot Manual Muscle Testing Right Dorsiflexion (L4) 5 Normal Plantarflexion (S1) 5 Normal Inversion 5 Normal Eversion (S1) 5 Normal Left Dorsiflexion (L4) 4+ Good+ Plantarflexion (S1) 3+ Fair+ Inversion 3+ Fair+ Eversion (S1) 4 Good Toe Strength Toe Manual Muscle Testing Right Great Toe Flexion 5 Normal Extension 5 Normal Left Great Toe Flexion 3+ Fair+ Extension 4+ Good+ Comments 2nd- 5th toes have minimal abduction noted and flexion noted ~ 3/5 PT-OP-Q Treatments Start: 01/22/20 16:19 Freq: Status: Active Protocol: Document 03/17/20 14:32 HH (Rec: 03/17/20 14:45 [id number]) Gym Equipment Shuttle Rebound calf raises Reps/Duration 25 lbs Comments heel pain with end range PF. Cues needed to avoid end range SL squat Reps/Duration 75 lbs Comments 8x2 pt has no c/o but needed cues for neutral knee alignment Therapeutic Exercises Supine Exercises ankle PF Side left Resistance light blue theraband Reps/Minutes 10 x2 Comments c/o discomfort in the heel ankle INV Side left Resistance light blue theraband Reps/Minutes 10 x2 Standing Exercises calf and soleus stretch Side left Comments able to tolerate stretch in reaching down position without Wb on L Manual Therapy Treatment Soft Tissue Mobilization scar tissue Body Location medial and lateral malleoli Mobilization Type Cross-Friction,Sustained Pressure,Trigger Point Release Intensity/Depth Moderate Body Position Supine Comments inferior and superior post tib. Body Location L Mobilization Type Sustained Pressure,Trigger Point Release Intensity/Depth Moderate Body Position Prone gastro Body Location Bilaterally Mobilization Type Sustained Pressure,Trigger Point Release Intensity/Depth Moderate Body Position Prone Comments and achilles. In superior direction. Joint Mobilizations posterior glide Joint Talocural joint Direction posterior glide Grade III Body Position Supine Reps/Duration 4 mins Comments with passive DF. Her superior foot pain resolved after. fibular glide Joint tibial fibular distal joint Direction posterior Grade II Body Position Supine Reps/Duration 4 mins Comments pain reduced for ankle zuni after forefoot Direction supination and pronation Grade II Body Position Supine Reps/Duration 2 mins Manual Traction TC joint Details Distraction Body Position Supine Reps/Duration 5 s x2 Neuro Re-Education Treatment Balance Activities uneven surface Details jaswant discs Surface uneven Equipment 2 jaswant discs Reps/Duration 8 mins Comments static stance with knee bent then stagger stance PT-OP-T Assessment and Plan Start: 01/22/20 16:19 Freq: Status: Active Protocol: Document 03/17/20 14:32 HH (Rec: 03/17/20 14:45 [id number]) Physical Therapy Assessment Goals Single leg balance Impairment L SLS = 18s Residential Goal (LTG) Pt will improve her SL balance up to 30 seconds with minimal discomfort so she climbs stairs/ steps with minimal discomfort. 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 STG Duration 4 weeks Residential Goal (LTG) pt will score 66 or greater to improve her over ankle mobility and strength. LTG Duration 8 weeks LEFS Impairment pt scores 23 Short Term Goal (STG) Pt will score 47 or greater on LEFS to improve her functional mobility STG Duration 4 weeks Tracer Bullet Charging Machine Operator Goal (LTG) Pt will score 62 or greater on LEFS to improve her functional mobility and quality of life LTG Duration 8 weeks Assessment Summary Assessment Pt shows improved tolerance for her running shoes and overall strength and mobility as she stated. Initiated partial WB ex today such as SL squat at 75 lbs and calf raises at 25 lbs. She does have pain at end range PF. Physical Therapy Plan Frequency and Duration Frequency of Treatment 2x/Week Duration of Treatment 8 weeks Plan of Care Start Date 01/22/20 Plan of Care End Date 03/22/20 Next Visit Focus/Plan Next Note Type Treatment Note Next Visit Plan scar mob if needed L foot inversion, toe curls, PF bap board gait training on heel strike and toes push off. blaance training uneven surface
--- NOTE | 2020-03-20 16:03 | PT.OTN ---
Current Diagnoses Effusion, left ankle (03/20/20) Pain in left foot (03/20/20) Other specified postprocedural states (03/20/20) Physical Therapy Treatment Note PT-OP-A Visit Information Start: 01/22/20 16:19 Freq: Status: Active Protocol: Document 03/20/20 14:35 HH (Rec: 03/20/20 16:03 HH [id number]) Out-Patient Physical Therapy Visit Information Visit Information Visit Type Treatment Note Visit Start Time 14:32 Visit Stop Time 15:15 Total Visit Minutes 43 Visit Number 02/26 Number of BRIDAL GOWN FITTER Visits 0 PT-OP-B Current Condition Start: 01/22/20 16:19 Freq: Status: Active Protocol: Document 01/22/20 16:20 HH (Rec: 01/22/20 17:26 HH [email or web address]) Current Condition History of Current Condition Onset Date 08/08/19 Current Complaints L foot pain and numbness, foot weakness with decreased balance History of Current Condition Pt is a 49 yo female here for her L foot pain, numbness, weakness and decreased balance since last year. Pt was found to have a nonenhancing cystic appearaning approximately 2 cm ganglion cyst at the medial ankle deep to the flexor retinaculum abutting the posterior tibial nerve earlier this year and required to have removal of the cyst and decompression of the tarsal tunnel on 08/08/19 . In addition, pt then had infection at surigcal site and required I & D on 09/04/19, along with weeks of wound care tx after. Pt currently still has residual pain at medial ankle and plantar surface especially with pressure at her surgical site; numbness to the entire plantar surface, and dorsal surface of the 4th and 5th toes. Pt noticed she has weakness with her toes since surgery and so does her balance. Her pain, numbness has been significantly limiting her mobility who cannot tolerate standing/ walking/ exercising for more than 10 mins. She also has trouble putting weight on L foot in the morning which requires her to gradually WB on it to start. She is currently taking hydrocodone 10mg every 6-8 hrs a day. Pt also stated she has multiple ankle sprains in the past which her ortho team believes that could be the cause of her ganglion cyst. Prior Treatments and Tests Irrigation debridement skin muscle fascia 20 sq cm or less 09/04/19 removal of ganglion cyst and decompression of the tarsal tunnel 08/08/19 Treatment Goals Patient/Caregiver Goals 1. To regain her foot strength and balance 2. To reduce her foot pain during mobility such as standing/ walking. Personal Factors Other Personal Factors That May Effect fibromyalgia Therapy/Recovery current smoker PT-OP-C Subjective Start: 01/22/20 16:19 Freq: Status: Active Protocol: Document 03/20/20 14:35 HH (Rec: 03/20/20 16:03 HH [id number]) OP-PT Subjective Patient Comments Patient Comments My balance is terrible. I got manipulation from chiropractor on the bottom of my foot and it hurt a lot. But overall i could wear shoes all the time now. Patient Reported Progress Improving PT-OP-D Balance Start: 01/22/20 16:19 Freq: Status: Active Protocol: Document 01/22/20 16:20 HH (Rec: 01/22/20 17:26 HH [email or web address]) Balance Tests Single Limb Standing Single Limb- Right >45s Single Limb- Left 18s Other Other Balance Tests Performed pain with standing on L foot PT-OP-F Manual Assessment Start: 01/22/20 16:19 Freq: Status: Active Protocol: Document 01/22/20 16:20 HH (Rec: 01/22/20 17:26 HH [email or web address]) Manual Assessments Soft Tissue Assessment Soft Tissue Mobility Assessment TTP below surgical site and report of radiating pain to the entire plantar surface of the L foot PT-OP-G Mobility & Gait Start: 01/22/20 16:19 Freq: Status: Active Protocol: Document 01/22/20 16:20 HH (Rec: 01/22/20 17:26 HH [email or web address]) OP Gait Assessment Factors Limiting Gait Function Factors Limiting Gait Function Decreased Activity Tolerance, Decreased Sensation,Decreased Strength,Limited Range of Motion,Pain,Poor Balance Comments Gait Comments pt walks with flat footed on L side with minimal heel strike and toes push off. PT-OP-J Posture/Palpation/Skin Start: 01/22/20 16:19 Freq: Status: Active Protocol: Document 01/22/20 17:26 HH (Rec: 01/22/20 17:27 HH [email or web address]) Skin Assessment Circumference Measurement L ankle Location figure 8 ( above maleoli then 5th met head) Comments 22 inches R ankle Location figure 8 ( above maleoli then 5th met head) Comments 20 inches PT-OP-K Range of Motion Start: 01/22/20 16:19 Freq: Status: Active Protocol: Document 01/22/20 16:20 HH (Rec: 01/22/20 17:26 [email or web address]) Ankle and Foot Goniometric Range of Motion Ankle and Foot Right Active Ankle/Foot ROM WFL Yes Testing Position Supine Dorsiflexion with Knee Flexed 21 Dorsiflexion with Knee Extended 12 Plantarflexion 55 Inversion 40 Eversion 21 Left Active Ankle/Foot ROM WFL Yes Testing Position Supine Dorsiflexion with Knee Flexed 15 Dorsiflexion with Knee Extended 12 Plantarflexion 38 Inversion 30 Eversion 15 Ankle and Foot ROM Limitations ROM Limitations Muscle Weakness PT-OP-M Strength Start: 01/22/20 16:19 Freq: Status: Active Protocol: Document 01/22/20 16:20 HH (Rec: 01/22/20 17:26 [email or web address]) Knee Strength Knee Manual Muscle Testing Right Flexion (S2) 4+ Good+ Extension (L3) 4+ Good+ Left Flexion (S2) 4+ Good+ Extension (L3) 4+ Good+ Ankle/Foot Strength Ankle and Foot Manual Muscle Testing Right Dorsiflexion (L4) 5 Normal Plantarflexion (S1) 5 Normal Inversion 5 Normal Eversion (S1) 5 Normal Left Dorsiflexion (L4) 4+ Good+ Plantarflexion (S1) 3+ Fair+ Inversion 3+ Fair+ Eversion (S1) 4 Good Toe Strength Toe Manual Muscle Testing Right Great Toe Flexion 5 Normal Extension 5 Normal Left Great Toe Flexion 3+ Fair+ Extension 4+ Good+ Comments 2nd- 5th toes have minimal abduction noted and flexion noted ~ 3/5 PT-OP-Q Treatments Start: 01/22/20 16:19 Freq: Status: Active Protocol: Document 03/20/20 14:35 HH (Rec: 03/20/20 16:03 [id number]) Gym Equipment Shuttle Rebound calf raises Reps/Duration 50 lbs Comments less pain at heel this visit. SL squat Reps/Duration 75 lbs Comments 8x2 cues to keep the toes up for L foot and the knees out. Manual Therapy Treatment Soft Tissue Mobilization scar tissue Body Location medial and lateral malleoli Mobilization Type Cross-Friction,Sustained Pressure,Trigger Point Release Intensity/Depth Moderate Body Position Supine Comments inferior and superior post tib. Body Location L Mobilization Type Sustained Pressure,Trigger Point Release Intensity/Depth Moderate Body Position Prone gastro Body Location Bilaterally Mobilization Type Sustained Pressure,Trigger Point Release Intensity/Depth Moderate Body Position Prone Comments and achilles. In superior direction. Joint Mobilizations posterior glide Joint Talocural joint Direction posterior glide Grade III Body Position Supine Reps/Duration 4 mins Comments with passive DF. Her superior foot pain resolved after. fibular glide Joint tibial fibular distal joint Direction posterior Grade II Body Position Supine Reps/Duration 4 mins Comments pain reduced for ankle jena after Neuro Re-Education Treatment Balance Activities SLS Surface ground level Reps/Duration 10-20 sec x2 Comments Increased difficulty with maintaining balance on L side. Poor ankle strategy. PT-OP-T Assessment and Plan Start: 01/22/20 16:19 Freq: Status: Active Protocol: Document 03/20/20 14:35 HH (Rec: 03/20/20 16:03 HH [id number]) Physical Therapy Assessment Goals Single leg balance Impairment L SLS = 18s Usp Goal (LTG) Pt will improve her SL balance up to 30 seconds with minimal discomfort so she climbs stairs/ steps with minimal discomfort. LTG Duration 8 weeks activity tolerance Impairment unable to stand/ walk > 10 mins Usp Goal (LTG) pt will be able to stand/ walk with a proper gait mechanics >30 mins with minimal pain/ discomfort LTG Duration 8 weeks FAAM Impairment pt scores 20 Short Term Goal (STG) pt will score 49 or greater to improve her over ankle mobility and strength. STG Duration 4 weeks Usp Goal (LTG) pt will score 66 or greater to improve her over ankle mobility and strength. LTG Duration 8 weeks LEFS Impairment pt scores 23 Short Term Goal (STG) Pt will score 47 or greater on LEFS to improve her functional mobility STG Duration 4 weeks Furniture Arranger Goal (LTG) Pt will score 62 or greater on LEFS to improve her functional mobility and quality of life LTG Duration 8 weeks Assessment Summary Assessment Pt continue to show improvement in her activity tolerance and ankle strength. Pt was able to SLS #75 and perform calf raise #50, which improved from #25 during last session. Pt was also able to perform SL balance for 10-20 sec with more difficulty on the L. Will continue to focus tx on strengthening the ankle and progress towards CKC exercises with balance. Will reassess next visit. Physical Therapy Plan Frequency and Duration Frequency of Treatment 2x/Week Duration of Treatment 8 weeks Plan of Care Start Date 01/22/20 Plan of Care End Date 03/22/20 Next Visit Focus/Plan Next Note Type Re-Evaluation Next Visit Plan scar mob if needed L foot inversion, toe curls, PF bap board gait training on heel strike and toes push off. blaance training uneven surface
--- NOTE | 2020-03-31 16:22 | PT.OTN ---
Current Diagnoses Effusion, left ankle (03/31/20) Pain in left foot (03/31/20) Other specified postprocedural states (03/31/20) Physical Therapy Treatment Note PT-OP-A Visit Information Start: 01/22/20 16:19 Freq: Status: Active Protocol: Document 03/31/20 14:29 HH (Rec: 03/31/20 16:21 HH [id number]) Out-Patient Physical Therapy Visit Information Visit Information Visit Type Progress Note Visit Start Time 14:32 Visit Stop Time 15:17 Total Visit Minutes 45 Visit Number 03/28 Number of AIRPLANE MECHANIC Visits 0 PT-OP-B Current Condition Start: 01/22/20 16:19 Freq: Status: Active Protocol: Document 01/22/20 16:20 HH (Rec: 01/22/20 17:26 HH [email or web address]) Current Condition History of Current Condition Onset Date 08/08/19 Current Complaints L foot pain and numbness, foot weakness with decreased balance History of Current Condition Pt is a 49 yo female here for her L foot pain, numbness, weakness and decreased balance since last year. Pt was found to have a nonenhancing cystic appearaning approximately 2 cm ganglion cyst at the medial ankle deep to the flexor retinaculum abutting the posterior tibial nerve earlier this year and required to have removal of the cyst and decompression of the tarsal tunnel on 08/08/19 . In addition, pt then had infection at surigcal site and required I & D on 09/04/19, along with weeks of wound care tx after. Pt currently still has residual pain at medial ankle and plantar surface especially with pressure at her surgical site; numbness to the entire plantar surface, and dorsal surface of the 4th and 5th toes. Pt noticed she has weakness with her toes since surgery and so does her balance. Her pain, numbness has been significantly limiting her mobility who cannot tolerate standing/ walking/ exercising for more than 10 mins. She also has trouble putting weight on L foot in the morning which requires her to gradually WB on it to start. She is currently taking hydrocodone 10mg every 6-8 hrs a day. Pt also stated she has multiple ankle sprains in the past which her ortho team believes that could be the cause of her ganglion cyst. Prior Treatments and Tests Irrigation debridement skin muscle fascia 20 sq cm or less 09/04/19 removal of ganglion cyst and decompression of the tarsal tunnel 08/08/19 Treatment Goals Patient/Caregiver Goals 1. To regain her foot strength and balance 2. To reduce her foot pain during mobility such as standing/ walking. Personal Factors Other Personal Factors That May Effect fibromyalgia Therapy/Recovery current smoker PT-OP-C Subjective Start: 01/22/20 16:19 Freq: Status: Active Protocol: Document 03/31/20 14:29 HH (Rec: 03/31/20 16:21 HH [id number]) OP-PT Subjective Patient Comments Patient Comments My ankle mobility and strength are getting better and my heel is not as bad but i still have stiffness at the bottom of the feet. I still have that plantar fascitis feeling especially in the morning Patient Reported Progress Improving Patient Questionnaires Foot & Ankle Ability Measure- ADL and Sports FAAM-ADL Score 39 FAAM-ADL Impairment 40 to 59% Impaired (Score 33- 49) FAAM-Sport Score 0 FAAM-Sport Impairment 100% Impaired (Score 0) Lower Extremity Functional Scale LEFS Score 40 LEFS Impairment 40 to 59% Impaired (Score 32- 47) PT-OP-D Balance Start: 01/22/20 16:19 Freq: Status: Active Protocol: Document 03/31/20 14:29 HH (Rec: 03/31/20 16:21 HH [id number]) Balance Tests Single Limb Standing Single Limb- Right 50s Single Limb- Left 39s PT-OP-F Manual Assessment Start: 01/22/20 16:19 Freq: Status: Active Protocol: Document 01/22/20 16:20 HH (Rec: 01/22/20 17:26 [email or web address]) Manual Assessments Soft Tissue Assessment Soft Tissue Mobility Assessment TTP below surgical site and report of radiating pain to the entire plantar surface of the L foot PT-OP-G Mobility & Gait Start: 01/22/20 16:19 Freq: Status: Active Protocol: Document 01/22/20 16:20 HH (Rec: 01/22/20 17:26 [email or web address]) OP Gait Assessment Factors Limiting Gait Function Factors Limiting Gait Function Decreased Activity Tolerance, Decreased Sensation,Decreased Strength,Limited Range of Motion,Pain,Poor Balance Comments Gait Comments pt walks with flat footed on L side with minimal heel strike and toes push off. PT-OP-J Posture/Palpation/Skin Start: 01/22/20 16:19 Freq: Status: Active Protocol: Document 01/22/20 17:26 (Rec: 01/22/20 17:27 [email or web address]) Skin Assessment Circumference Measurement L ankle Location figure 8 ( above maleoli then 5th met head) Comments 22 inches R ankle Location figure 8 ( above maleoli then 5th met head) Comments 20 inches PT-OP-K Range of Motion Start: 01/22/20 16:19 Freq: Status: Active Protocol: Document 01/22/20 16:20 HH (Rec: 01/22/20 17:26 [email or web address]) Ankle and Foot Goniometric Range of Motion Ankle and Foot Right Active Ankle/Foot ROM WFL Yes Testing Position Supine Dorsiflexion with Knee Flexed 21 Dorsiflexion with Knee Extended 12 Plantarflexion 55 Inversion 40 Eversion 21 Left Active Ankle/Foot ROM WFL Yes Testing Position Supine Dorsiflexion with Knee Flexed 15 Dorsiflexion with Knee Extended 12 Plantarflexion 38 Inversion 30 Eversion 15 Ankle and Foot ROM Limitations ROM Limitations Muscle Weakness PT-OP-M Strength Start: 01/22/20 16:19 Freq: Status: Active Protocol: Document 01/22/20 16:20 HH (Rec: 01/22/20 17:26 [email or web address]) Knee Strength Knee Manual Muscle Testing Right Flexion (S2) 4+ Good+ Extension (L3) 4+ Good+ Left Flexion (S2) 4+ Good+ Extension (L3) 4+ Good+ Ankle/Foot Strength Ankle and Foot Manual Muscle Testing Right Dorsiflexion (L4) 5 Normal Plantarflexion (S1) 5 Normal Inversion 5 Normal Eversion (S1) 5 Normal Left Dorsiflexion (L4) 4+ Good+ Plantarflexion (S1) 3+ Fair+ Inversion 3+ Fair+ Eversion (S1) 4 Good Toe Strength Toe Manual Muscle Testing Right Great Toe Flexion 5 Normal Extension 5 Normal Left Great Toe Flexion 3+ Fair+ Extension 4+ Good+ Comments 2nd- 5th toes have minimal abduction noted and flexion noted ~ 3/5 PT-OP-Q Treatments Start: 01/22/20 16:19 Freq: Status: Active Protocol: Document 03/31/20 14:29 HH (Rec: 03/31/20 16:21 [id number]) Gym Equipment Shuttle Rebound calf raises Reps/Duration 50 lbs Comments less pain at heel this visit. SL squat Reps/Duration 75 lbs Comments 8x2 cues to keep the toes up for L foot and the knees out. Therapeutic Exercises Standing Exercises calf raises Side bilateral Equipment Used on stool Reps/Minutes 8 x2 Comments up to midrange of PF d/t slight pain Manual Therapy Treatment Soft Tissue Mobilization post tib. Body Location L Mobilization Type Sustained Pressure,Trigger Point Release Intensity/Depth Moderate Body Position Prone gastro Body Location Bilaterally Mobilization Type Sustained Pressure,Trigger Point Release Intensity/Depth Moderate Body Position Prone Comments and achilles. In superior direction. Neuro Re-Education Treatment Balance Activities toe tap 3 way Surface ground level Equipment next to grab bar Reps/Duration 5 rounds each leg Comments for HEP SLS Surface ground level Reps/Duration 10-20 sec x2 Comments Increased difficulty with maintaining balance on L side. improved ankle strategy. uneven surface Details blue foam Reps/Duration 8 sec x 6 Comments SLS on blue foam PT-OP-T Assessment and Plan Start: 01/22/20 16:19 Freq: Status: Active Protocol: Document 03/31/20 14:29 (Rec: 03/31/20 16:21 [id number]) Physical Therapy Assessment Goals Single leg balance Impairment L SLS = 18s Intermediate Goal (LTG) Pt will improve her SL balance up to 30 seconds with minimal discomfort so she climbs stairs/ steps with minimal discomfort. LTG Duration 8 weeks activity tolerance Impairment unable to stand/ walk > 10 mins Or Director Goal (LTG) pt will be able to stand/ walk with a proper gait mechanics >30 mins with minimal pain/ discomfort LTG Duration 8 weeks FAAM Impairment pt scores 20 Short Term Goal (STG) pt will score 49 or greater to improve her over ankle mobility and strength. STG Duration 4 weeks Or Director Goal (LTG) pt will score 66 or greater to improve her over ankle mobility and strength. LTG Duration 8 weeks LEFS Impairment pt scores 23 Short Term Goal (STG) Pt will score 47 or greater on LEFS to improve her functional mobility STG Duration 4 weeks Intermediate Goal (LTG) Pt will score 62 or greater on LEFS to improve her functional mobility and quality of life LTG Duration 8 weeks Progress Towards Goals Progress Towards Goals Progressing Toward Goals Assessment Summary Assessment Pt has been showing good progress with ankle mobility, stability and strength since evaluation although pt was not compliant to appointments for the first month. She is currently able to tolerate therex in standing position with minimal discomfort at TC joint. Will progress her treatment to more WB position for SL stability and strength. She will cont benefit from skilled therapy as long as she is compliant to POC. Physical Therapy Plan Frequency and Duration Frequency of Treatment 2x/Week, 1x/wk Duration of Treatment 10 weeks Plan of Care Start Date 03/31/20 Plan of Care End Date 06/14/20 Therapeutic Interventions Therapeutic Interventions Balance Training,Coordination Training,Gait Training,Home Exercise Program,Joint Mobilizations,Manual Therapy, Neuromuscular Re-education, Patient/Caregiver Education, Self-Care/Home Management,Soft Tissue Mobilization,Taping, Therapeutic Activities, Therapeutic Exercises Next Visit Focus/Plan Next Note Type Treatment Note Next Visit Plan scar mob if needed L foot inversion, toe curls, PF bap board gait training on heel strike and toes push off. blaance training uneven surface
--- NOTE | 2020-03-31 16:22 | PT.OPPOC ---
Physical, Occupational & Speech Therapy At [facility] Current Diagnoses Effusion, left ankle (03/31/20) Pain in left foot (03/31/20) Other specified postprocedural states (03/31/20) Visit Care Team Role Provider Type Brent Joiner MD Attending Provider Physician Family Provider Primary Care Provider Referring Provider Specialty: Internal Medicine Address: [address] [place] [address], [address], [facility] Email: [email or web address] Plan Of Care PT-OP-T Assessment and Plan Start: 01/22/20 16:19 Freq: Status: Active Protocol: Document 03/31/20 14:29 HH (Rec: 03/31/20 16:21 HH [id number]) Physical Therapy Assessment Goals Single leg balance Impairment L SLS = 18s Alf Goal (LTG) Pt will improve her SL balance up to 30 seconds with minimal discomfort so she climbs stairs/ steps with minimal discomfort. LTG Duration 8 weeks activity tolerance Impairment unable to stand/ walk > 10 mins Machinist Automotive Goal (LTG) pt will be able to stand/ walk with a proper gait mechanics >30 mins with minimal pain/ discomfort LTG Duration 8 weeks FAAM Impairment pt scores 20 Short Term Goal (STG) pt will score 49 or greater to improve her over ankle mobility and strength. STG Duration 4 weeks Machinist Automotive Goal (LTG) pt will score 66 or greater to improve her over ankle mobility and strength. LTG Duration 8 weeks LEFS Impairment pt scores 23 Short Term Goal (STG) Pt will score 47 or greater on LEFS to improve her functional mobility STG Duration 4 weeks Machinist Automotive Goal (LTG) Pt will score 62 or greater on LEFS to improve her functional mobility and quality of life LTG Duration 8 weeks Progress Towards Goals Progress Towards Goals Progressing Toward Goals Assessment Summary Assessment Pt has been showing good progress with ankle mobility, stability and strength since evaluation although pt was not compliant to appointments for the first month. She is currently able to tolerate therex in standing position with minimal discomfort at TC joint. Will progress her treatment to more WB position for SL stability and strength. She will cont benefit from skilled therapy as long as she is compliant to POC. Physical Therapy Plan Frequency and Duration Frequency of Treatment 2x/Week, 1x/wk Duration of Treatment 10 weeks Plan of Care Start Date 03/31/20 Plan of Care End Date 06/14/20 Therapeutic Interventions Therapeutic Interventions Balance Training,Coordination Training,Gait Training,Home Exercise Program,Joint Mobilizations,Manual Therapy, Neuromuscular Re-education, Patient/Caregiver Education, Self-Care/Home Management,Soft Tissue Mobilization,Taping, Therapeutic Activities, Therapeutic Exercises Next Visit Focus/Plan Next Note Type Treatment Note Next Visit Plan scar mob if needed L foot inversion, toe curls, PF bap board gait training on heel strike and toes push off. blaance training uneven surface Plan of Care Dates Plan of Care Start Date 03/31/20 Plan of Care End Date 06/14/20 Electronically Signed by: Yasmeen Mcnamara PT 03/31/20 [id number] Please Sign and Return: I have reviewed this Plan of Care and certify that the skilled therapy services above are required to meet the patient?s needs. Physician Signature Date Printed Name and Credentials Clinical Instructor Signature Printed Name and Credentials
--- NOTE | 2020-04-03 15:49 | PT.OTN ---
Current Diagnoses Effusion, left ankle (04/03/20) Pain in left foot (04/03/20) Other specified postprocedural states (04/03/20) Physical Therapy Treatment Note PT-OP-A Visit Information Start: 01/22/20 16:19 Freq: Status: Active Protocol: Document 04/03/20 14:31 HH (Rec: 04/03/20 15:48 HH [id number]) Out-Patient Physical Therapy Visit Information Visit Information Visit Type Treatment Note Visit Start Time 14:32 Visit Stop Time 15:15 Total Visit Minutes 43 Visit Number 04/28 Number of ROLL GRINDER OPERATOR Visits 0 PT-OP-B Current Condition Start: 01/22/20 16:19 Freq: Status: Active Protocol: Document 01/22/20 16:20 HH (Rec: 01/22/20 17:26 HH [email or web address]) Current Condition History of Current Condition Onset Date 08/08/19 Current Complaints L foot pain and numbness, foot weakness with decreased balance History of Current Condition Pt is a 49 yo female here for her L foot pain, numbness, weakness and decreased balance since last year. Pt was found to have a nonenhancing cystic appearaning approximately 2 cm ganglion cyst at the medial ankle deep to the flexor retinaculum abutting the posterior tibial nerve earlier this year and required to have removal of the cyst and decompression of the tarsal tunnel on 08/08/19 . In addition, pt then had infection at surigcal site and required I & D on 09/04/19, along with weeks of wound care tx after. Pt currently still has residual pain at medial ankle and plantar surface especially with pressure at her surgical site; numbness to the entire plantar surface, and dorsal surface of the 4th and 5th toes. Pt noticed she has weakness with her toes since surgery and so does her balance. Her pain, numbness has been significantly limiting her mobility who cannot tolerate standing/ walking/ exercising for more than 10 mins. She also has trouble putting weight on L foot in the morning which requires her to gradually WB on it to start. She is currently taking hydrocodone 10mg every 6-8 hrs a day. Pt also stated she has multiple ankle sprains in the past which her ortho team believes that could be the cause of her ganglion cyst. Prior Treatments and Tests Irrigation debridement skin muscle fascia 20 sq cm or less 09/04/19 removal of ganglion cyst and decompression of the tarsal tunnel 08/08/19 Treatment Goals Patient/Caregiver Goals 1. To regain her foot strength and balance 2. To reduce her foot pain during mobility such as standing/ walking. Personal Factors Other Personal Factors That May Effect fibromyalgia Therapy/Recovery current smoker PT-OP-C Subjective Start: 01/22/20 16:19 Freq: Status: Active Protocol: Document 04/03/20 14:31 HH (Rec: 04/03/20 15:48 HH [id number]) OP-PT Subjective Patient Comments Patient Comments My top of plantar fascia tends to be sensitive to pressure and i dont know why PT-OP-D Balance Start: 01/22/20 16:19 Freq: Status: Active Protocol: Document 03/31/20 14:29 HH (Rec: 03/31/20 16:21 HH [id number]) Balance Tests Single Limb Standing Single Limb- Right 50s Single Limb- Left 39s PT-OP-F Manual Assessment Start: 01/22/20 16:19 Freq: Status: Active Protocol: Document 01/22/20 16:20 HH (Rec: 01/22/20 17:26 [email or web address]) Manual Assessments Soft Tissue Assessment Soft Tissue Mobility Assessment TTP below surgical site and report of radiating pain to the entire plantar surface of the L foot PT-OP-G Mobility & Gait Start: 01/22/20 16:19 Freq: Status: Active Protocol: Document 01/22/20 16:20 HH (Rec: 01/22/20 17:26 [email or web address]) OP Gait Assessment Factors Limiting Gait Function Factors Limiting Gait Function Decreased Activity Tolerance, Decreased Sensation,Decreased Strength,Limited Range of Motion,Pain,Poor Balance Comments Gait Comments pt walks with flat footed on L side with minimal heel strike and toes push off. PT-OP-J Posture/Palpation/Skin Start: 01/22/20 16:19 Freq: Status: Active Protocol: Document 01/22/20 17:26 HH (Rec: 01/22/20 17:27 HH [email or web address]) Skin Assessment Circumference Measurement L ankle Location figure 8 ( above maleoli then 5th met head) Comments 22 inches R ankle Location figure 8 ( above maleoli then 5th met head) Comments 20 inches PT-OP-K Range of Motion Start: 08/25/20 16:19 Freq: Status: Active Protocol: Document 01/22/20 16:20 (Rec: 01/22/20 17:26 [email or web address]) Ankle and Foot Goniometric Range of Motion Ankle and Foot Right Active Ankle/Foot ROM WFL Yes Testing Position Supine Dorsiflexion with Knee Flexed 21 Dorsiflexion with Knee Extended 12 Plantarflexion 55 Inversion 40 Eversion 21 Left Active Ankle/Foot ROM WFL Yes Testing Position Supine Dorsiflexion with Knee Flexed 15 Dorsiflexion with Knee Extended 12 Plantarflexion 38 Inversion 30 Eversion 15 Ankle and Foot ROM Limitations ROM Limitations Muscle Weakness PT-OP-M Strength Start: 01/22/20 16:19 Freq: Status: Active Protocol: Document 01/22/20 16:20 (Rec: 01/22/20 17:26 [email or web address]) Knee Strength Knee Manual Muscle Testing Right Flexion (S2) 4+ Good+ Extension (L3) 4+ Good+ Left Flexion (S2) 4+ Good+ Extension (L3) 4+ Good+ Ankle/Foot Strength Ankle and Foot Manual Muscle Testing Right Dorsiflexion (L4) 5 Normal Plantarflexion (S1) 5 Normal Inversion 5 Normal Eversion (S1) 5 Normal Left Dorsiflexion (L4) 4+ Good+ Plantarflexion (S1) 3+ Fair+ Inversion 3+ Fair+ Eversion (S1) 4 Good Toe Strength Toe Manual Muscle Testing Right Great Toe Flexion 5 Normal Extension 5 Normal Left Great Toe Flexion 3+ Fair+ Extension 4+ Good+ Comments 2nd- 5th toes have minimal abduction noted and flexion noted ~ 3/5 PT-OP-Q Treatments Start: 01/22/20 16:19 Freq: Status: Active Protocol: Document 04/03/20 14:31 (Rec: 04/03/20 15:48 [id number]) Cardio Equipment Treadmill Duration (Minutes) 7 Speed 2.0-2.8 Incline 0 Other noticed pt with slight L foot abduction during swing phase Therapeutic Exercises Sidelying Exercises clam shell Side bilateral Reps/Minutes 10 x2 Standing Exercises step up Side bilateral Equipment Used 8 inch box Reps/Minutes 10 x2 Comments pt felt weaker on L side calf raises Side bilateral Equipment Used on stool Reps/Minutes 8 x2 Comments up to midrange of PF d/t slight pain ankle board Standing Exercise Name ankle DF and PF Reps/Minutes 2 mins Comments tightness at achilles at the begining but subside after Manual Therapy Treatment Soft Tissue Mobilization post tib. Body Location L Mobilization Type Sustained Pressure,Trigger Point Release Intensity/Depth Moderate Body Position Prone gastro Body Location Bilaterally Mobilization Type Sustained Pressure,Trigger Point Release Intensity/Depth Moderate Body Position Prone Comments and achilles. In superior direction. Neuro Re-Education Treatment Balance Activities SLS Surface blue foam Reps/Duration 10-20 sec x5 PT-OP-T Assessment and Plan Start: 01/22/20 16:19 Freq: Status: Active Protocol: Document 04/03/20 14:31 HH (Rec: 04/03/20 15:48 HH [id number]) Physical Therapy Assessment Goals pain Impairment pt c/o heel and medial arch pain in AM 10/06 Senior Research Associate Goal (LTG) pt will improve her ankle foot strength and mobility so she reports no more than 2/10 foot pain in AM LTG Duration 8 weeks Single leg balance Impairment L SLS = 18s Short Term Goal (STG) 03/31 LSLS= 39s Senior Research Associate Goal (LTG) Pt will improve her SL balance up to 1 min with minimal discomfort so she climbs stairs/ steps with minimal discomfort. LTG Duration 8 weeks activity tolerance Impairment unable to stand/ walk > 10 mins Short Term Goal (STG) 03/31 pt is able to amb with regular shoes with minimal pain for 15 mins. Skilled Nursing Goal (LTG) pt will be able to stand/ walk with a proper gait mechanics >30 mins with minimal pain/ discomfort LTG Duration 8 weeks FAAM Impairment pt scores 39 on 03/31 Short Term Goal (STG) 03/31 pt scores 39 pt will score 49 or greater to improve her over ankle mobility and strength. STG Duration 4 weeks Senior Research Associate Goal (LTG) pt will score 66 or greater to improve her over ankle mobility and strength. LTG Duration 8 weeks LEFS Impairment pt scores 40 Short Term Goal (STG) 03/31 pt scores 40 on LEFS Pt will score 47 or greater on LEFS to improve her functional mobility STG Duration 4 weeks Skilled Nursing Goal (LTG) Pt will score 62 or greater on LEFS to improve her functional mobility and quality of life LTG Duration 8 weeks Assessment Summary Assessment Pt miriam session well with focus on threx and balance ex on ground. She is able to miriam half calf raises, SLS ex followed by TM gait trianing. Noticed pt was unsteady during stance phase on L, along with L foot abduction during swing phase. Physical Therapy Plan Frequency and Duration Frequency of Treatment 2x/Week, 1x/wk Duration of Treatment 10 weeks Plan of Care Start Date 03/31/20 Plan of Care End Date 06/14/20 Next Visit Focus/Plan Next Note Type Treatment Note Next Visit Plan scar mob if needed L foot inversion, toe curls, PF bap board gait training on heel strike and toes push off. blaance training uneven surface
--- NOTE | 2020-04-07 15:17 | PT.OTN ---
Current Diagnoses Effusion, left ankle (04/07/20) Pain in left foot (04/07/20) Other specified postprocedural states (04/07/20) Physical Therapy Treatment Note PT-OP-A Visit Information Start: 01/22/20 16:19 Freq: Status: Active Protocol: Document 04/07/20 14:36 HH (Rec: 04/07/20 15:16 HH [id number]) Out-Patient Physical Therapy Visit Information Visit Information Visit Type Treatment Note Visit Start Time 14:34 Visit Stop Time 15:15 Total Visit Minutes 41 Visit Number 05/28 Number of COLD ROLLER Visits 0 PT-OP-B Current Condition Start: 01/22/20 16:19 Freq: Status: Active Protocol: Document 01/22/20 16:20 HH (Rec: 01/22/20 17:26 HH [email or web address]) Current Condition History of Current Condition Onset Date 08/08/19 Current Complaints L foot pain and numbness, foot weakness with decreased balance History of Current Condition Pt is a 49 yo female here for her L foot pain, numbness, weakness and decreased balance since last year. Pt was found to have a nonenhancing cystic appearaning approximately 2 cm ganglion cyst at the medial ankle deep to the flexor retinaculum abutting the posterior tibial nerve earlier this year and required to have removal of the cyst and decompression of the tarsal tunnel on 08/08/19 . In addition, pt then had infection at surigcal site and required I & D on 09/04/19, along with weeks of wound care tx after. Pt currently still has residual pain at medial ankle and plantar surface especially with pressure at her surgical site; numbness to the entire plantar surface, and dorsal surface of the 4th and 5th toes. Pt noticed she has weakness with her toes since surgery and so does her balance. Her pain, numbness has been significantly limiting her mobility who cannot tolerate standing/ walking/ exercising for more than 10 mins. She also has trouble putting weight on L foot in the morning which requires her to gradually WB on it to start. She is currently taking hydrocodone 10mg every 6-8 hrs a day. Pt also stated she has multiple ankle sprains in the past which her ortho team believes that could be the cause of her ganglion cyst. Prior Treatments and Tests Irrigation debridement skin muscle fascia 20 sq cm or less 09/04/19 removal of ganglion cyst and decompression of the tarsal tunnel 08/08/19 Treatment Goals Patient/Caregiver Goals 1. To regain her foot strength and balance 2. To reduce her foot pain during mobility such as standing/ walking. Personal Factors Other Personal Factors That May Effect fibromyalgia Therapy/Recovery current smoker PT-OP-C Subjective Start: 01/22/20 16:19 Freq: Status: Active Protocol: Document 04/07/20 14:36 HH (Rec: 04/07/20 15:16 HH [id number]) OP-PT Subjective Patient Comments Patient Comments I went shopping on Sat for 7- 8 hours on my tennis shoes but then it was very irritating for the next 2 days. Patient Reported Progress Same PT-OP-D Balance Start: 01/22/20 16:19 Freq: Status: Active Protocol: Document 03/31/20 14:29 HH (Rec: 03/31/20 16:21 HH [id number]) Balance Tests Single Limb Standing Single Limb- Right 50s Single Limb- Left 39s PT-OP-F Manual Assessment Start: 01/22/20 16:19 Freq: Status: Active Protocol: Document 01/22/20 16:20 HH (Rec: 01/22/20 17:26 HH [email or web address]) Manual Assessments Soft Tissue Assessment Soft Tissue Mobility Assessment TTP below surgical site and report of radiating pain to the entire plantar surface of the L foot PT-OP-G Mobility & Gait Start: 01/22/20 16:19 Freq: Status: Active Protocol: Document 01/22/20 16:20 HH (Rec: 01/22/20 17:26 HH [email or web address]) OP Gait Assessment Factors Limiting Gait Function Factors Limiting Gait Function Decreased Activity Tolerance, Decreased Sensation,Decreased Strength,Limited Range of Motion,Pain,Poor Balance Comments Gait Comments pt walks with flat footed on L side with minimal heel strike and toes push off. PT-OP-J Posture/Palpation/Skin Start: 01/22/20 16:19 Freq: Status: Active Protocol: Document 01/22/20 17:26 HH (Rec: 01/22/20 17:27 HH [email or web address]) Skin Assessment Circumference Measurement L ankle Location figure 8 ( above maleoli then 5th met head) Comments 22 inches R ankle Location figure 8 ( above maleoli then 5th met head) Comments 20 inches PT-OP-K Range of Motion Start: 01/22/20 16:19 Freq: Status: Active Protocol: Document 01/22/20 16:20 HH (Rec: 01/22/20 17:26 [email or web address]) Ankle and Foot Goniometric Range of Motion Ankle and Foot Right Active Ankle/Foot ROM WFL Yes Testing Position Supine Dorsiflexion with Knee Flexed 21 Dorsiflexion with Knee Extended 12 Plantarflexion 55 Inversion 40 Eversion 21 Left Active Ankle/Foot ROM WFL Yes Testing Position Supine Dorsiflexion with Knee Flexed 15 Dorsiflexion with Knee Extended 12 Plantarflexion 38 Inversion 30 Eversion 15 Ankle and Foot ROM Limitations ROM Limitations Muscle Weakness PT-OP-M Strength Start: 01/22/20 16:19 Freq: Status: Active Protocol: Document 01/22/20 16:20 HH (Rec: 01/22/20 17:26 [email or web address]) Knee Strength Knee Manual Muscle Testing Right Flexion (S2) 4+ Good+ Extension (L3) 4+ Good+ Left Flexion (S2) 4+ Good+ Extension (L3) 4+ Good+ Ankle/Foot Strength Ankle and Foot Manual Muscle Testing Right Dorsiflexion (L4) 5 Normal Plantarflexion (S1) 5 Normal Inversion 5 Normal Eversion (S1) 5 Normal Left Dorsiflexion (L4) 4+ Good+ Plantarflexion (S1) 3+ Fair+ Inversion 3+ Fair+ Eversion (S1) 4 Good Toe Strength Toe Manual Muscle Testing Right Great Toe Flexion 5 Normal Extension 5 Normal Left Great Toe Flexion 3+ Fair+ Extension 4+ Good+ Comments 2nd- 5th toes have minimal abduction noted and flexion noted ~ 3/5 PT-OP-Q Treatments Start: 01/22/20 16:19 Freq: Status: Active Protocol: Document 04/07/20 14:36 HH (Rec: 04/07/20 15:16 [id number]) Cardio Equipment Bicycle (Upright) Duration (Minutes) 6 Resistance 5 Gym Equipment Shuttle Rebound calf raises Reps/Duration 50 lbs Comments less pain at heel this visit. SL squat Reps/Duration 75 lbs Comments 8x2 cues to keep the toes up for L foot and the knees out. Therapeutic Exercises Supine Exercises bridging Reps/Minutes 12 x 2 Sidelying Exercises clam shell Side bilateral Reps/Minutes 10 x2 Standing Exercises step up Side bilateral Equipment Used 8 inch box Reps/Minutes 10 x2 Comments pt felt weaker on L side calf raises Side bilateral Equipment Used on stool Reps/Minutes 8 x2 Comments up to midrange of PF d/t slight pain ankle board Standing Exercise Name ankle DF and PF Reps/Minutes 2 mins Comments tightness at achilles at the begining but subside after Manual Therapy Treatment Soft Tissue Mobilization post tib. Body Location L Mobilization Type Sustained Pressure,Trigger Point Release Intensity/Depth Moderate Body Position Prone gastro Body Location Bilaterally Mobilization Type Sustained Pressure,Trigger Point Release Intensity/Depth Moderate Body Position Prone Comments and achilles. In superior direction. Neuro Re-Education Treatment Balance Activities SLS Surface blue foam Reps/Duration 10-20 sec x5 PT-OP-T Assessment and Plan Start: 01/22/20 16:19 Freq: Status: Active Protocol: Document 04/07/20 14:36 HH (Rec: 04/07/20 15:16 HH [id number]) Physical Therapy Assessment Goals pain Impairment pt c/o heel and medial arch pain in AM 10/06 Lead Pressman Goal (LTG) pt will improve her ankle foot strength and mobility so she reports no more than 2/10 foot pain in AM LTG Duration 8 weeks Single leg balance Impairment L SLS = 18s Short Term Goal (STG) 03/31 LSLS= 39s Intermediate Goal (LTG) Pt will improve her SL balance up to 1 min with minimal discomfort so she climbs stairs/ steps with minimal discomfort. LTG Duration 8 weeks activity tolerance Impairment unable to stand/ walk > 10 mins Short Term Goal (STG) 03/31 pt is able to amb with regular shoes with minimal pain for 15 mins. Intermediate Goal (LTG) pt will be able to stand/ walk with a proper gait mechanics >30 mins with minimal pain/ discomfort LTG Duration 8 weeks FAAM Impairment pt scores 39 on 03/31 Short Term Goal (STG) 03/31 pt scores 39 pt will score 49 or greater to improve her over ankle mobility and strength. STG Duration 4 weeks Lead Pressman Goal (LTG) pt will score 66 or greater to improve her over ankle mobility and strength. LTG Duration 8 weeks LEFS Impairment pt scores 40 Short Term Goal (STG) 03/31 pt scores 40 on LEFS Pt will score 47 or greater on LEFS to improve her functional mobility STG Duration 4 weeks Lead Pressman Goal (LTG) Pt will score 62 or greater on LEFS to improve her functional mobility and quality of life LTG Duration 8 weeks Assessment Summary Assessment Pt has a flare up after walking 7-8 hours on Sat but she recovered well after. Pt has improved SL balance on blue foam today and SLS is up to 55 seconds. Physical Therapy Plan Frequency and Duration Frequency of Treatment 2x/Week, 1x/wk Duration of Treatment 10 weeks Plan of Care Start Date 03/31/20 Plan of Care End Date 06/14/20 Next Visit Focus/Plan Next Note Type Treatment Note Next Visit Plan scar mob if needed L foot inversion, toe curls, PF bap board gait training on heel strike and toes push off. blaance training uneven surface
--- NOTE | 2020-04-10 16:09 | PT.OTN ---
Current Diagnoses Effusion, left ankle (04/10/20) Pain in left foot (04/10/20) Other specified postprocedural states (04/10/20) Physical Therapy Treatment Note PT-OP-A Visit Information Start: 01/22/20 16:19 Freq: Status: Active Protocol: Document 04/10/20 16:03 HH (Rec: 04/10/20 16:09 HH [email or web address]) Out-Patient Physical Therapy Visit Information Visit Information Visit Type Treatment Note Visit Note pt 5 mins late Visit Start Time 14:37 Visit Stop Time 15:15 Total Visit Minutes 38 Visit Number Number of GAS FITTER Visits 0 PT-OP-B Current Condition Start: 01/22/20 16:19 Freq: Status: Active Protocol: Document 01/22/20 16:20 HH (Rec: 01/22/20 17:26 HH [email or web address]) Current Condition History of Current Condition Onset Date 08/08/19 Current Complaints L foot pain and numbness, foot weakness with decreased balance History of Current Condition Pt is a 49 yo female here for her L foot pain, numbness, weakness and decreased balance since last year. Pt was found to have a nonenhancing cystic appearaning approximately 2 cm ganglion cyst at the medial ankle deep to the flexor retinaculum abutting the posterior tibial nerve earlier this year and required to have removal of the cyst and decompression of the tarsal tunnel on 08/08/19 . In addition, pt then had infection at surigcal site and required I & D on 09/04/19, along with weeks of wound care tx after. Pt currently still has residual pain at medial ankle and plantar surface especially with pressure at her surgical site; numbness to the entire plantar surface, and dorsal surface of the 4th and 5th toes. Pt noticed she has weakness with her toes since surgery and so does her balance. Her pain, numbness has been significantly limiting her mobility who cannot tolerate standing/ walking/ exercising for more than 10 mins. She also has trouble putting weight on L foot in the morning which requires her to gradually WB on it to start. She is currently taking hydrocodone 10mg every 6-8 hrs a day. Pt also stated she has multiple ankle sprains in the past which her ortho team believes that could be the cause of her ganglion cyst. Prior Treatments and Tests Irrigation debridement skin muscle fascia 20 sq cm or less 09/04/19 removal of ganglion cyst and decompression of the tarsal tunnel 08/08/19 Treatment Goals Patient/Caregiver Goals 1. To regain her foot strength and balance 2. To reduce her foot pain during mobility such as standing/ walking. Personal Factors Other Personal Factors That May Effect fibromyalgia Therapy/Recovery current smoker PT-OP-C Subjective Start: 01/22/20 16:19 Freq: Status: Active Protocol: Document 04/10/20 16:03 HH (Rec: 04/10/20 16:09 HH [email or web address]) OP-PT Subjective Patient Comments Patient Comments the past 2 days is kind of hurting my. I still have the top ankle pain and i have a hard time stretching my achilles Patient Reported Progress Same PT-OP-D Balance Start: 01/22/20 16:19 Freq: Status: Active Protocol: Document 03/31/20 14:29 HH (Rec: 03/31/20 16:21 [id number]) Balance Tests Single Limb Standing Single Limb- Right 50s Single Limb- Left 39s PT-OP-F Manual Assessment Start: 01/22/20 16:19 Freq: Status: Active Protocol: Document 01/22/20 16:20 HH (Rec: 01/22/20 17:26 HH [email or web address]) Manual Assessments Soft Tissue Assessment Soft Tissue Mobility Assessment TTP below surgical site and report of radiating pain to the entire plantar surface of the L foot PT-OP-G Mobility & Gait Start: 01/22/20 16:19 Freq: Status: Active Protocol: Document 01/22/20 16:20 HH (Rec: 01/22/20 17:26 HH [email or web address]) OP Gait Assessment Factors Limiting Gait Function Factors Limiting Gait Function Decreased Activity Tolerance, Decreased Sensation,Decreased Strength,Limited Range of Motion,Pain,Poor Balance Comments Gait Comments pt walks with flat footed on L side with minimal heel strike and toes push off. PT-OP-J Posture/Palpation/Skin Start: 01/22/20 16:19 Freq: Status: Active Protocol: Document 01/22/20 17:26 HH (Rec: 01/22/20 17:27 HH [email or web address]) Skin Assessment Circumference Measurement L ankle Location figure 8 ( above maleoli then 5th met head) Comments 22 inches R ankle Location figure 8 ( above maleoli then 5th met head) Comments 20 inches PT-OP-K Range of Motion Start: 01/22/20 16:19 Freq: Status: Active Protocol: Document 01/22/20 16:20 HH (Rec: 01/22/20 17:26 [email or web address]) Ankle and Foot Goniometric Range of Motion Ankle and Foot Right Active Ankle/Foot ROM WFL Yes Testing Position Supine Dorsiflexion with Knee Flexed 21 Dorsiflexion with Knee Extended 12 Plantarflexion 55 Inversion 40 Eversion 21 Left Active Ankle/Foot ROM WFL Yes Testing Position Supine Dorsiflexion with Knee Flexed 15 Dorsiflexion with Knee Extended 12 Plantarflexion 38 Inversion 30 Eversion 15 Ankle and Foot ROM Limitations ROM Limitations Muscle Weakness PT-OP-M Strength Start: 01/22/20 16:19 Freq: Status: Active Protocol: Document 01/22/20 16:20 HH (Rec: 01/22/20 17:26 [email or web address]) Knee Strength Knee Manual Muscle Testing Right Flexion (S2) 4+ Good+ Extension (L3) 4+ Good+ Left Flexion (S2) 4+ Good+ Extension (L3) 4+ Good+ Ankle/Foot Strength Ankle and Foot Manual Muscle Testing Right Dorsiflexion (L4) 5 Normal Plantarflexion (S1) 5 Normal Inversion 5 Normal Eversion (S1) 5 Normal Left Dorsiflexion (L4) 4+ Good+ Plantarflexion (S1) 3+ Fair+ Inversion 3+ Fair+ Eversion (S1) 4 Good Toe Strength Toe Manual Muscle Testing Right Great Toe Flexion 5 Normal Extension 5 Normal Left Great Toe Flexion 3+ Fair+ Extension 4+ Good+ Comments 2nd- 5th toes have minimal abduction noted and flexion noted ~ 3/5 PT-OP-Q Treatments Start: 01/22/20 16:19 Freq: Status: Active Protocol: Document 04/10/20 16:03 (Rec: 04/10/20 16:09 [email or web address]) Therapeutic Exercises Supine Exercises ankle PF Equipment Used yellow band Reps/Minutes 10 x3 ankle INV Equipment Used yellow band Reps/Minutes 10 x3 Standing Exercises calf and soleus stretch Side left Comments pt stated unable to feel the stretch of calf Manual Therapy Treatment Soft Tissue Mobilization post tib. Body Location L Mobilization Type Sustained Pressure,Trigger Point Release Intensity/Depth Moderate Body Position Prone gastro Body Location Bilaterally Mobilization Type Sustained Pressure,Trigger Point Release Intensity/Depth Moderate Body Position Prone Comments and achilles. In superior direction. Joint Mobilizations posterior glide Direction post Grade III Body Position Supine Comments with active DF Self-Care/Home Management Treatment Education Patient Education Home Exercise Program,Joint Protection Other Education educated pt to limit her daily activity up to 10k steps. educated pt regarding loading management from daily activities to avoid excessive joint pressure. PT-OP-T Assessment and Plan Start: 01/22/20 16:19 Freq: Status: Active Protocol: Document 04/10/20 16:03 (Rec: 04/10/20 16:09 [email or web address]) Physical Therapy Assessment Goals pain Impairment pt c/o heel and medial arch pain in AM 5 Group Home Goal (LTG) pt will improve her ankle foot strength and mobility so she reports no more than 2/10 foot pain in AM LTG Duration 8 weeks Single leg balance Impairment L SLS = 18s Short Term Goal (STG) 03/31 LSLS= 39s Cane Burner Goal (LTG) Pt will improve her SL balance up to 1 min with minimal discomfort so she climbs stairs/ steps with minimal discomfort. LTG Duration 8 weeks activity tolerance Impairment unable to stand/ walk > 10 mins Short Term Goal (STG) 03/31 pt is able to amb with regular shoes with minimal pain for 15 mins. Group Home Goal (LTG) pt will be able to stand/ walk with a proper gait mechanics >30 mins with minimal pain/ discomfort LTG Duration 8 weeks FAAM Impairment pt scores 39 on 03/31 Short Term Goal (STG) 03/31 pt scores 39 pt will score 49 or greater to improve her over ankle mobility and strength. STG Duration 4 weeks Group Home Goal (LTG) pt will score 66 or greater to improve her over ankle mobility and strength. LTG Duration 8 weeks LEFS Impairment pt scores 40 Short Term Goal (STG) 03/31 pt scores 40 on LEFS Pt will score 47 or greater on LEFS to improve her functional mobility STG Duration 4 weeks Group Home Goal (LTG) Pt will score 62 or greater on LEFS to improve her functional mobility and quality of life LTG Duration 8 weeks Assessment Summary Assessment pt came in with frustration regarding her ankle discomfort and pain. This PT reassured her regarding her improved activity tolerance, foot strength, food wear tolerance to show her rehab progress. Also discussed with her to limit her daily activity up to 10k steps as pt stated that she has been getting 15k steps a day. Educated her to be cautious with load management. Physical Therapy Plan Frequency and Duration Frequency of Treatment 2x/Week, 1x/wk Duration of Treatment 10 weeks Plan of Care Start Date 03/31/20 Plan of Care End Date 06/14/20 Next Visit Focus/Plan Next Note Type Treatment Note Next Visit Plan DF mob
--- NOTE | 2020-04-14 16:18 | PT.OTN ---
Current Diagnoses Effusion, left ankle (04/14/20) Pain in left foot (04/14/20) Other specified postprocedural states (04/14/20) Physical Therapy Treatment Note PT-OP-A Visit Information Start: 01/22/20 16:19 Freq: Status: Active Protocol: Document 04/14/20 13:01 HH (Rec: 04/14/20 16:18 [id number]) Out-Patient Physical Therapy Visit Information Visit Information Visit Type Treatment Note Visit Start Time 13:00 Visit Stop Time 13:45 Total Visit Minutes 45 Visit Number 14/30 Number of SUPPLY CHAIN BUYER Visits 0 PT-OP-B Current Condition Start: 01/22/20 16:19 Freq: Status: Active Protocol: Document 01/22/20 16:20 HH (Rec: 01/22/20 17:26 [email or web address]) Current Condition History of Current Condition Onset Date 08/08/19 Current Complaints L foot pain and numbness, foot weakness with decreased balance History of Current Condition Pt is a 49 yo female here for her L foot pain, numbness, weakness and decreased balance since last year. Pt was found to have a nonenhancing cystic appearaning approximately 2 cm ganglion cyst at the medial ankle deep to the flexor retinaculum abutting the posterior tibial nerve earlier this year and required to have removal of the cyst and decompression of the tarsal tunnel on 08/08/19 . In addition, pt then had infection at surigcal site and required I & D on 09/04/19, along with weeks of wound care tx after. Pt currently still has residual pain at medial ankle and plantar surface especially with pressure at her surgical site; numbness to the entire plantar surface, and dorsal surface of the 4th and 5th toes. Pt noticed she has weakness with her toes since surgery and so does her balance. Her pain, numbness has been significantly limiting her mobility who cannot tolerate standing/ walking/ exercising for more than 10 mins. She also has trouble putting weight on L foot in the morning which requires her to gradually WB on it to start. She is currently taking hydrocodone 10mg every 6-8 hrs a day. Pt also stated she has multiple ankle sprains in the past which her ortho team believes that could be the cause of her ganglion cyst. Prior Treatments and Tests Irrigation debridement skin muscle fascia 20 sq cm or less 09/04/19 removal of ganglion cyst and decompression of the tarsal tunnel 08/08/19 Treatment Goals Patient/Caregiver Goals 1. To regain her foot strength and balance 2. To reduce her foot pain during mobility such as standing/ walking. Personal Factors Other Personal Factors That May Effect fibromyalgia Therapy/Recovery current smoker PT-OP-C Subjective Start: 01/22/20 16:19 Freq: Status: Active Protocol: Document 04/14/20 13:01 HH (Rec: 04/14/20 16:18 HH [id number]) OP-PT Subjective Patient Comments Patient Comments Im not doing well since last week. There's swelling and bumps now and i think i have to call my surgeon Dr. Hutchinson.I also walked [id number] steps Patient Reported Progress Worse PT-OP-D Balance Start: 01/22/20 16:19 Freq: Status: Active Protocol: Document 03/31/20 14:29 HH (Rec: 03/31/20 16:21 HH [id number]) Balance Tests Single Limb Standing Single Limb- Right 50s Single Limb- Left 39s PT-OP-F Manual Assessment Start: 01/22/20 16:19 Freq: Status: Active Protocol: Document 01/22/20 16:20 HH (Rec: 01/22/20 17:26 HH [email or web address]) Manual Assessments Soft Tissue Assessment Soft Tissue Mobility Assessment TTP below surgical site and report of radiating pain to the entire plantar surface of the L foot PT-OP-G Mobility & Gait Start: 01/22/20 16:19 Freq: Status: Active Protocol: Document 01/22/20 16:20 HH (Rec: 01/22/20 17:26 HH [email or web address]) OP Gait Assessment Factors Limiting Gait Function Factors Limiting Gait Function Decreased Activity Tolerance, Decreased Sensation,Decreased Strength,Limited Range of Motion,Pain,Poor Balance Comments Gait Comments pt walks with flat footed on L side with minimal heel strike and toes push off. PT-OP-J Posture/Palpation/Skin Start: 01/22/20 16:19 Freq: Status: Active Protocol: Document 01/22/20 17:26 HH (Rec: 01/22/20 17:27 HH [email or web address]) Skin Assessment Circumference Measurement L ankle Location figure 8 ( above maleoli then 5th met head) Comments 22 inches R ankle Location figure 8 ( above maleoli then 5th met head) Comments 20 inches PT-OP-K Range of Motion Start: 01/22/20 16:19 Freq: Status: Active Protocol: Document 01/22/20 16:20 (Rec: 01/22/20 17:26 [email or web address]) Ankle and Foot Goniometric Range of Motion Ankle and Foot Right Active Ankle/Foot ROM WFL Yes Testing Position Supine Dorsiflexion with Knee Flexed 21 Dorsiflexion with Knee Extended 12 Plantarflexion 55 Inversion 40 Eversion 21 Left Active Ankle/Foot ROM WFL Yes Testing Position Supine Dorsiflexion with Knee Flexed 15 Dorsiflexion with Knee Extended 12 Plantarflexion 38 Inversion 30 Eversion 15 Ankle and Foot ROM Limitations ROM Limitations Muscle Weakness PT-OP-M Strength Start: 01/22/20 16:19 Freq: Status: Active Protocol: Document 01/22/20 16:20 (Rec: 01/22/20 17:26 [email or web address]) Knee Strength Knee Manual Muscle Testing Right Flexion (S2) 4+ Good+ Extension (L3) 4+ Good+ Left Flexion (S2) 4+ Good+ Extension (L3) 4+ Good+ Ankle/Foot Strength Ankle and Foot Manual Muscle Testing Right Dorsiflexion (L4) 5 Normal Plantarflexion (S1) 5 Normal Inversion 5 Normal Eversion (S1) 5 Normal Left Dorsiflexion (L4) 4+ Good+ Plantarflexion (S1) 3+ Fair+ Inversion 3+ Fair+ Eversion (S1) 4 Good Toe Strength Toe Manual Muscle Testing Right Great Toe Flexion 5 Normal Extension 5 Normal Left Great Toe Flexion 3+ Fair+ Extension 4+ Good+ Comments 2nd- 5th toes have minimal abduction noted and flexion noted ~ 3/5 PT-OP-Q Treatments Start: 01/22/20 16:19 Freq: Status: Active Protocol: Document 04/14/20 13:01 (Rec: 04/14/20 16:18 [id number]) Cardio Equipment Bicycle (Upright) Duration (Minutes) 6 Resistance 5 Therapeutic Exercises Standing Exercises knee to wall Side bilateral Reps/Minutes 15 x 2 Comments L toe touched wall, R toe 3 inches away Manual Therapy Treatment Soft Tissue Mobilization post tib. Body Location L Mobilization Type Sustained Pressure,Trigger Point Release Intensity/Depth Moderate Body Position Prone gastro Body Location Bilaterally Mobilization Type Sustained Pressure,Trigger Point Release Intensity/Depth Moderate Body Position Prone Comments and achilles. In superior direction. Joint Mobilizations posterior glide Direction post Grade III Body Position Supine Comments with active DF Neuro Re-Education Treatment Balance Activities SLS Surface blue foam then even surface Reps/Duration 10-20 sec x5 PT-OP-T Assessment and Plan Start: 01/22/20 16:19 Freq: Status: Active Protocol: Document 04/14/20 13:01 (Rec: 04/14/20 16:18 [id number]) Physical Therapy Assessment Goals pain Impairment pt c/o heel and medial arch pain in AM 10/06 Layout Man Goal (LTG) pt will improve her ankle foot strength and mobility so she reports no more than 2/10 foot pain in AM LTG Duration 8 weeks Single leg balance Impairment L SLS = 18s Short Term Goal (STG) 03/31 LSLS= 39s Nursing Home Goal (LTG) Pt will improve her SL balance up to 1 min with minimal discomfort so she climbs stairs/ steps with minimal discomfort. LTG Duration 8 weeks activity tolerance Impairment unable to stand/ walk > 10 mins Short Term Goal (STG) 03/31 pt is able to amb with regular shoes with minimal pain for 15 mins. Layout Man Goal (LTG) pt will be able to stand/ walk with a proper gait mechanics >30 mins with minimal pain/ discomfort LTG Duration 8 weeks FAAM Impairment pt scores 39 on 03/31 Short Term Goal (STG) 03/31 pt scores 39 pt will score 49 or greater to improve her over ankle mobility and strength. STG Duration 4 weeks Layout Man Goal (LTG) pt will score 66 or greater to improve her over ankle mobility and strength. LTG Duration 8 weeks LEFS Impairment pt scores 40 Short Term Goal (STG) 03/31 pt scores 40 on LEFS Pt will score 47 or greater on LEFS to improve her functional mobility STG Duration 4 weeks Nursing Home Goal (LTG) Pt will score 62 or greater on LEFS to improve her functional mobility and quality of life LTG Duration 8 weeks Assessment Summary Assessment Pt has another flare up but less intense after she walked 20k steps on tuesday but she is recovering from it. Cont spent time on educating pt be aware of load management. Pt is receptive with her guidelines. Physical Therapy Plan Frequency and Duration Frequency of Treatment 2x/Week, 1x/wk Duration of Treatment 10 weeks Plan of Care Start Date 03/31/20 Plan of Care End Date 06/14/20 Next Visit Focus/Plan Next Note Type Treatment Note Next Visit Plan DF post glide at TC joint, SLS, ROM,
--- NOTE | 2020-05-05 16:11 | PT.OTN ---
Current Diagnoses Effusion, left ankle (05/05/20) Pain in left foot (05/05/20) Other specified postprocedural states (05/05/20) Physical Therapy Treatment Note PT-OP-A Visit Information Start: 01/22/20 16:19 Freq: Status: Active Protocol: Document 05/05/20 15:14 HH (Rec: 05/05/20 16:11 HH [id number]) Out-Patient Physical Therapy Visit Information Visit Information Visit Type Treatment Note Visit Start Time 15:18 Visit Stop Time 16:02 Total Visit Minutes 43 Visit Number Number of RN DOCUMENTATION Visits 0 PT-OP-B Current Condition Start: 01/22/20 16:19 Freq: Status: Active Protocol: Document 01/22/20 16:20 HH (Rec: 01/22/20 17:26 HH [email or web address]) Current Condition History of Current Condition Onset Date 08/08/19 Current Complaints L foot pain and numbness, foot weakness with decreased balance History of Current Condition Pt is a 49 yo female here for her L foot pain, numbness, weakness and decreased balance since last year. Pt was found to have a nonenhancing cystic appearaning approximately 2 cm ganglion cyst at the medial ankle deep to the flexor retinaculum abutting the posterior tibial nerve earlier this year and required to have removal of the cyst and decompression of the tarsal tunnel on 08/08/19 . In addition, pt then had infection at surigcal site and required I & D on 09/04/19, along with weeks of wound care tx after. Pt currently still has residual pain at medial ankle and plantar surface especially with pressure at her surgical site; numbness to the entire plantar surface, and dorsal surface of the 4th and 5th toes. Pt noticed she has weakness with her toes since surgery and so does her balance. Her pain, numbness has been significantly limiting her mobility who cannot tolerate standing/ walking/ exercising for more than 10 mins. She also has trouble putting weight on L foot in the morning which requires her to gradually WB on it to start. She is currently taking hydrocodone 10mg every 6-8 hrs a day. Pt also stated she has multiple ankle sprains in the past which her ortho team believes that could be the cause of her ganglion cyst. Prior Treatments and Tests Irrigation debridement skin muscle fascia 20 sq cm or less 09/04/19 removal of ganglion cyst and decompression of the tarsal tunnel 08/08/19 Treatment Goals Patient/Caregiver Goals 1. To regain her foot strength and balance 2. To reduce her foot pain during mobility such as standing/ walking. Personal Factors Other Personal Factors That May Effect fibromyalgia Therapy/Recovery current smoker PT-OP-C Subjective Start: 01/22/20 16:19 Freq: Status: Active Protocol: Document 05/05/20 15:14 HH (Rec: 05/05/20 16:11 HH [id number]) OP-PT Subjective Patient Comments Patient Comments I could stretch my calves pretty well now and my pain in the morning are a lot less now. However, its been hurting me a lot at the end of the day and star been walking almost 20k steps /day because of the holiday season Patient Reported Progress Improving PT-OP-D Balance Start: 01/22/20 16:19 Freq: Status: Active Protocol: Document 03/31/20 14:29 HH (Rec: 03/31/20 16:21 HH [id number]) Balance Tests Single Limb Standing Single Limb- Right 50s Single Limb- Left 39s PT-OP-F Manual Assessment Start: 01/22/20 16:19 Freq: Status: Active Protocol: Document 01/22/20 16:20 HH (Rec: 01/22/20 17:26 HH [email or web address]) Manual Assessments Soft Tissue Assessment Soft Tissue Mobility Assessment TTP below surgical site and report of radiating pain to the entire plantar surface of the L foot PT-OP-G Mobility & Gait Start: 01/22/20 16:19 Freq: Status: Active Protocol: Document 01/22/20 16:20 HH (Rec: 01/22/20 17:26 HH [email or web address]) OP Gait Assessment Factors Limiting Gait Function Factors Limiting Gait Function Decreased Activity Tolerance, Decreased Sensation,Decreased Strength,Limited Range of Motion,Pain,Poor Balance Comments Gait Comments pt walks with flat footed on L side with minimal heel strike and toes push off. PT-OP-J Posture/Palpation/Skin Start: 01/22/20 16:19 Freq: Status: Active Protocol: Document 01/22/20 17:26 HH (Rec: 01/22/20 17:27 HH [email or web address]) Skin Assessment Circumference Measurement L ankle Location figure 8 ( above maleoli then 5th met head) Comments 22 inches R ankle Location figure 8 ( above maleoli then 5th met head) Comments 20 inches PT-OP-K Range of Motion Start: 01/22/20 16:19 Freq: Status: Active Protocol: Document 01/22/20 16:20 (Rec: 01/22/20 17:26 [email or web address]) Ankle and Foot Goniometric Range of Motion Ankle and Foot Right Active Ankle/Foot ROM WFL Yes Testing Position Supine Dorsiflexion with Knee Flexed 21 Dorsiflexion with Knee Extended 12 Plantarflexion 55 Inversion 40 Eversion 21 Left Active Ankle/Foot ROM WFL Yes Testing Position Supine Dorsiflexion with Knee Flexed 15 Dorsiflexion with Knee Extended 12 Plantarflexion 38 Inversion 30 Eversion 15 Ankle and Foot ROM Limitations ROM Limitations Muscle Weakness PT-OP-M Strength Start: 01/22/20 16:19 Freq: Status: Active Protocol: Document 01/22/20 16:20 (Rec: 01/22/20 17:26 [email or web address]) Knee Strength Knee Manual Muscle Testing Right Flexion (S2) 4+ Good+ Extension (L3) 4+ Good+ Left Flexion (S2) 4+ Good+ Extension (L3) 4+ Good+ Ankle/Foot Strength Ankle and Foot Manual Muscle Testing Right Dorsiflexion (L4) 5 Normal Plantarflexion (S1) 5 Normal Inversion 5 Normal Eversion (S1) 5 Normal Left Dorsiflexion (L4) 4+ Good+ Plantarflexion (S1) 3+ Fair+ Inversion 3+ Fair+ Eversion (S1) 4 Good Toe Strength Toe Manual Muscle Testing Right Great Toe Flexion 5 Normal Extension 5 Normal Left Great Toe Flexion 3+ Fair+ Extension 4+ Good+ Comments 2nd- 5th toes have minimal abduction noted and flexion noted ~ 3/5 PT-OP-Q Treatments Start: 01/22/20 16:19 Freq: Status: Active Protocol: Document 05/05/20 15:14 (Rec: 05/05/20 16:11 [id number]) Gym Equipment Shuttle Rebound calf raises Reps/Duration 50# Comments end range DF to neutral position SL squat Reps/Duration 75# Comments no discomfort Therapeutic Exercises Standing Exercises calf raises Side bilateral Reps/Minutes 8 x2 Comments end range DF to neutral position calf and soleus stretch Side left Comments pt stated unable to feel the stretch of calf Manual Therapy Treatment Soft Tissue Mobilization post tib. Body Location L Mobilization Type Sustained Pressure,Trigger Point Release Intensity/Depth Moderate Body Position Prone Self-Care/Home Management Treatment Education Patient Education Home Exercise Program,Joint Protection,Pain Management, Posture Other Education educated to pt to limit her daily steps to 10k and recommended rest day in between her walking days. PT-OP-T Assessment and Plan Start: 01/22/20 16:19 Freq: Status: Active Protocol: Document 05/05/20 15:14 (Rec: 05/05/20 16:11 [id number]) Physical Therapy Assessment Goals pain Impairment pt c/o heel and medial arch pain in AM 5 Mcc Goal (LTG) pt will improve her ankle foot strength and mobility so she reports no more than 2/10 foot pain in AM LTG Duration 8 weeks Single leg balance Impairment L SLS = 18s Short Term Goal (STG) 03/31 LSLS= 39s Card Stripper Goal (LTG) Pt will improve her SL balance up to 1 min with minimal discomfort so she climbs stairs/ steps with minimal discomfort. LTG Duration 8 weeks activity tolerance Impairment unable to stand/ walk > 10 mins Short Term Goal (STG) 03/31 pt is able to amb with regular shoes with minimal pain for 15 mins. Card Stripper Goal (LTG) pt will be able to stand/ walk with a proper gait mechanics >30 mins with minimal pain/ discomfort LTG Duration 8 weeks FAAM Impairment pt scores 39 on 03/31 Short Term Goal (STG) 03/31 pt scores 39 pt will score 49 or greater to improve her over ankle mobility and strength. STG Duration 4 weeks Mcc Goal (LTG) pt will score 66 or greater to improve her over ankle mobility and strength. LTG Duration 8 weeks LEFS Impairment pt scores 40 Short Term Goal (STG) 03/31 pt scores 40 on LEFS Pt will score 47 or greater on LEFS to improve her functional mobility STG Duration 4 weeks Card Stripper Goal (LTG) Pt will score 62 or greater on LEFS to improve her functional mobility and quality of life LTG Duration 8 weeks Assessment Summary Assessment Pt reports improved pain in the morning and her L DF = WFL . Pt is able to perform standing calf raise now and she does noticed her pain tends to decrease with steps under 12k/day. Spent time educating on managing her activity level during session. Physical Therapy Plan Frequency and Duration Frequency of Treatment 2x/Week, 1x/wk Duration of Treatment 10 weeks Plan of Care Start Date 03/31/20 Plan of Care End Date 06/14/20 Next Visit Focus/Plan Next Note Type Treatment Note Next Visit Plan DF post glide at TC joint, SLS, ROM, half calf raises, SLS, SL strengtehning
--- NOTE | 2020-05-26 16:10 | PT.OPPOC ---
Physical, Occupational & Speech Therapy At [facility] Current Diagnoses Effusion, left ankle (05/26/20) Pain in left foot (05/26/20) Other specified postprocedural states (05/26/20) Visit Care Team Role Provider Type Brent Joiner MD Attending Provider Physician Family Provider Primary Care Provider Referring Provider Specialty: Internal Medicine Address: [address] [place] [address], [address], [facility] Email: [email or web address] Plan Of Care PT-OP-T Assessment and Plan Start: 01/22/20 16:19 Freq: Status: Active Protocol: Document 05/26/20 15:18 HH (Rec: 05/26/20 16:10 HH [id number]) Physical Therapy Assessment Goals pain Impairment pt c/o heel and medial arch pain in AM 5/10 Short Term Goal (STG) 05/26 pt has 3/10 pain in average as she stated. Brine Tank Operator Goal (LTG) pt will improve her ankle foot strength and mobility so she reports no more than 2/10 foot pain in AM LTG Duration 8 weeks Single leg balance Impairment L SLS = 18s Short Term Goal (STG) 03/31 LSLS= 39s 05/26 LSLS= 39S Brine Tank Operator Goal (LTG) Pt will improve her SL balance up to 1 min with minimal discomfort so she climbs stairs/ steps with minimal discomfort. LTG Duration 8 weeks activity tolerance Impairment unable to stand/ walk > 10 mins Short Term Goal (STG) 05/26 pt is able to amb with regular shoes without increased discomfort Assisted Goal (LTG) pt will be able to stand/ walk with a proper gait mechanics >30 mins with minimal pain/ discomfort LTG Duration 8 weeks FAAM Impairment pt scores 43 on 05/26 Short Term Goal (STG) 03/31 pt scores 39 05/26 pt scores 43 pt will score 49 or greater to improve her over ankle mobility and strength. STG Duration 4 weeks Brine Tank Operator Goal (LTG) pt will score 66 or greater to improve her over ankle mobility and strength. LTG Duration 8 weeks LEFS Impairment pt scores 40 Short Term Goal (STG) 03/31 pt scores 40 on LEFS 05/26 pt scores 39 on LEFS Pt will score 47 or greater on LEFS to improve her functional mobility STG Duration 4 weeks Brine Tank Operator Goal (LTG) Pt will score 62 or greater on LEFS to improve her functional mobility and quality of life LTG Duration 8 weeks Assessment Summary Assessment Progress note today. Pt shows plateau on outcome questionnaire but her overall pain, activity tolerance have shown improvements. Pt has new onset of L knee pain but assessment shows she has patella tedonitis and pain resolved after quad stretch. Pt shows lack of significant progress possibly d/t her poor compliance and attendance issues. Spent time today to educate the importance of being compliant to HEP and appts. Will cont POC 2x/week x 4 weeks and 1x week x 4 weeks Physical Therapy Plan Frequency and Duration Frequency of Treatment 2x/Week, 1x/wk Duration of Treatment 10 weeks Plan of Care Start Date 05/26/20 Plan of Care End Date 07/27/20 Next Visit Focus/Plan Next Note Type Treatment Note Next Visit Plan focus SL balance, calf raises, INV, SL strnegthening Plan of Care Dates Plan of Care Start Date 05/26/20 Plan of Care End Date 07/27/20 Electronically Signed by: Yasmeen Mcnamara, PT 05/26/20 [id number] Please Sign and Return: I have reviewed this Plan of Care and certify that the skilled therapy services above are required to meet the patient?s needs. Physician Signature Date Printed Name and Credentials Clinical Instructor Signature Printed Name and Credentials
--- NOTE | 2020-05-26 16:11 | PT.OTN ---
Current Diagnoses Effusion, left ankle (05/26/20) Pain in left foot (05/26/20) Other specified postprocedural states (05/26/20) Physical Therapy Treatment Note PT-OP-A Visit Information Start: 01/22/20 16:19 Freq: Status: Active Protocol: Document 05/26/20 15:18 HH (Rec: 05/26/20 16:10 [id number]) Out-Patient Physical Therapy Visit Information Visit Information Visit Type Progress Note Visit Start Time 15:18 Visit Stop Time 16:00 Total Visit Minutes 42 Visit Number Number of CARDIOLOGY COORDINATOR Visits 0 PT-OP-B Current Condition Start: 01/22/20 16:19 Freq: Status: Active Protocol: Document 01/22/20 16:20 HH (Rec: 01/22/20 17:26 [email or web address]) Current Condition History of Current Condition Onset Date 08/08/19 Current Complaints L foot pain and numbness, foot weakness with decreased balance History of Current Condition Pt is a 49 yo female here for her L foot pain, numbness, weakness and decreased balance since last year. Pt was found to have a nonenhancing cystic appearaning approximately 2 cm ganglion cyst at the medial ankle deep to the flexor retinaculum abutting the posterior tibial nerve earlier this year and required to have removal of the cyst and decompression of the tarsal tunnel on 08/08/19 . In addition, pt then had infection at surigcal site and required I & D on 09/04/19, along with weeks of wound care tx after. Pt currently still has residual pain at medial ankle and plantar surface especially with pressure at her surgical site; numbness to the entire plantar surface, and dorsal surface of the 4th and 5th toes. Pt noticed she has weakness with her toes since surgery and so does her balance. Her pain, numbness has been significantly limiting her mobility who cannot tolerate standing/ walking/ exercising for more than 10 mins. She also has trouble putting weight on L foot in the morning which requires her to gradually WB on it to start. She is currently taking hydrocodone 10mg every 6-8 hrs a day. Pt also stated she has multiple ankle sprains in the past which her ortho team believes that could be the cause of her ganglion cyst. Prior Treatments and Tests Irrigation debridement skin muscle fascia 20 sq cm or less 09/04/19 removal of ganglion cyst and decompression of the tarsal tunnel 08/08/19 Treatment Goals Patient/Caregiver Goals 1. To regain her foot strength and balance 2. To reduce her foot pain during mobility such as standing/ walking. Personal Factors Other Personal Factors That May Effect fibromyalgia Therapy/Recovery current smoker PT-OP-C Subjective Start: 01/22/20 16:19 Freq: Status: Active Protocol: Document 05/26/20 15:18 HH (Rec: 05/26/20 16:10 HH [id number]) OP-PT Subjective Patient Comments Patient Comments My ankle has been feeling pretty good. The numbness is still there. Pascale been monitoring my steps and i can tell i will have less discomfort if dont do much. However, my L knee has been bothering me a lot and i dont know why Patient Reported Progress Improving PT-OP-D Balance Start: 01/22/20 16:19 Freq: Status: Active Protocol: Document 03/31/20 14:29 HH (Rec: 03/31/20 16:21 HH [id number]) Balance Tests Single Limb Standing Single Limb- Right 50s Single Limb- Left 39s PT-OP-F Manual Assessment Start: 01/22/20 16:19 Freq: Status: Active Protocol: Document 01/22/20 16:20 HH (Rec: 01/22/20 17:26 HH [email or web address]) Manual Assessments Soft Tissue Assessment Soft Tissue Mobility Assessment TTP below surgical site and report of radiating pain to the entire plantar surface of the L foot PT-OP-G Mobility & Gait Start: 01/22/20 16:19 Freq: Status: Active Protocol: Document 01/22/20 16:20 HH (Rec: 01/22/20 17:26 HH [email or web address]) OP Gait Assessment Factors Limiting Gait Function Factors Limiting Gait Function Decreased Activity Tolerance, Decreased Sensation,Decreased Strength,Limited Range of Motion,Pain,Poor Balance Comments Gait Comments pt walks with flat footed on L side with minimal heel strike and toes push off. PT-OP-J Posture/Palpation/Skin Start: 01/22/20 16:19 Freq: Status: Active Protocol: Document 01/22/20 17:26 HH (Rec: 01/22/20 17:27 HH [email or web address]) Skin Assessment Circumference Measurement L ankle Location figure 8 ( above maleoli then 5th met head) Comments 22 inches R ankle Location figure 8 ( above maleoli then 5th met head) Comments 20 inches PT-OP-K Range of Motion Start: 01/22/20 16:19 Freq: Status: Active Protocol: Document 01/22/20 16:20 HH (Rec: 01/22/20 17:26 [email or web address]) Ankle and Foot Goniometric Range of Motion Ankle and Foot Right Active Ankle/Foot ROM WFL Yes Testing Position Supine Dorsiflexion with Knee Flexed 21 Dorsiflexion with Knee Extended 12 Plantarflexion 55 Inversion 40 Eversion 21 Left Active Ankle/Foot ROM WFL Yes Testing Position Supine Dorsiflexion with Knee Flexed 15 Dorsiflexion with Knee Extended 12 Plantarflexion 38 Inversion 30 Eversion 15 Ankle and Foot ROM Limitations ROM Limitations Muscle Weakness PT-OP-M Strength Start: 01/22/20 16:19 Freq: Status: Active Protocol: Document 01/22/20 16:20 (Rec: 01/22/20 17:26 [email or web address]) Knee Strength Knee Manual Muscle Testing Right Flexion (S2) 4+ Good+ Extension (L3) 4+ Good+ Left Flexion (S2) 4+ Good+ Extension (L3) 4+ Good+ Ankle/Foot Strength Ankle and Foot Manual Muscle Testing Right Dorsiflexion (L4) 5 Normal Plantarflexion (S1) 5 Normal Inversion 5 Normal Eversion (S1) 5 Normal Left Dorsiflexion (L4) 4+ Good+ Plantarflexion (S1) 3+ Fair+ Inversion 3+ Fair+ Eversion (S1) 4 Good Toe Strength Toe Manual Muscle Testing Right Great Toe Flexion 5 Normal Extension 5 Normal Left Great Toe Flexion 3+ Fair+ Extension 4+ Good+ Comments 2nd- 5th toes have minimal abduction noted and flexion noted ~ 3/5 PT-OP-Q Treatments Start: 01/22/20 16:19 Freq: Status: Active Protocol: Document 05/26/20 15:18 (Rec: 05/26/20 16:10 [id number]) Therapeutic Exercises Supine Exercises tracy stretch Supine Exercise Name for quad tightness Side left Standing Exercises calf raises Side bilateral Reps/Minutes 8 x2 Comments able to maintain L knee extended calf and soleus stretch Side left Comments able to feel the stretch ankle board Standing Exercise Name ankle DF/PF, followed by side to side Side bilateral Manual Therapy Treatment Soft Tissue Mobilization post tib. Body Location L Mobilization Type Sustained Pressure,Trigger Point Release Intensity/Depth Moderate Body Position Prone Neuro Re-Education Treatment Balance Activities SLS Surface blue foam then even surface Reps/Duration 10-20 sec x5 PT-OP-T Assessment and Plan Start: 01/22/20 16:19 Freq: Status: Active Protocol: Document 05/26/20 15:18 HH (Rec: 05/26/20 16:10 HH [id number]) Physical Therapy Assessment Goals pain Impairment pt c/o heel and medial arch pain in AM 5/10 Short Term Goal (STG) 05/26 pt has 3/10 pain in average as she stated. Developer Analyst Goal (LTG) pt will improve her ankle foot strength and mobility so she reports no more than 2/10 foot pain in AM LTG Duration 8 weeks Single leg balance Impairment L SLS = 18s Short Term Goal (STG) 03/31 LSLS= 39s 05/26 LSLS= 39S Developer Analyst Goal (LTG) Pt will improve her SL balance up to 1 min with minimal discomfort so she climbs stairs/ steps with minimal discomfort. LTG Duration 8 weeks activity tolerance Impairment unable to stand/ walk > 10 mins Short Term Goal (STG) 05/26 pt is able to amb with regular shoes without increased discomfort Developer Analyst Goal (LTG) pt will be able to stand/ walk with a proper gait mechanics >30 mins with minimal pain/ discomfort LTG Duration 8 weeks FAAM Impairment pt scores 43 on 05/26 Short Term Goal (STG) 03/31 pt scores 39 05/26 pt scores 43 pt will score 49 or greater to improve her over ankle mobility and strength. STG Duration 4 weeks Shelter Goal (LTG) pt will score 66 or greater to improve her over ankle mobility and strength. LTG Duration 8 weeks LEFS Impairment pt scores 40 Short Term Goal (STG) 03/31 pt scores 40 on LEFS 05/26 pt scores 39 on LEFS Pt will score 47 or greater on LEFS to improve her functional mobility STG Duration 4 weeks Developer Analyst Goal (LTG) Pt will score 62 or greater on LEFS to improve her functional mobility and quality of life LTG Duration 8 weeks Assessment Summary Assessment Progress note today. Pt shows plateau on outcome questionnaire but her overall pain, activity tolerance have shown improvements. Pt has new onset of L knee pain but assessment shows she has patella tedonitis and pain resolved after quad stretch. Pt shows lack of significant progress possibly d/t her poor compliance and attendance issues. Spent time today to educate the importance of being compliant to HEP and appts. Will cont POC 2x/week x 4 weeks and 1x week x 4 weeks Physical Therapy Plan Frequency and Duration Frequency of Treatment 2x/Week, 1x/wk Duration of Treatment 10 weeks Plan of Care Start Date 05/26/20 Plan of Care End Date 07/27/20 Next Visit Focus/Plan Next Note Type Treatment Note Next Visit Plan focus SL balance, calf raises, INV, SL strnegthening
--- NOTE | 2020-06-02 15:33 | PT.OTN ---
Current Diagnoses Effusion, left ankle (06/02/20) Pain in left foot (06/02/20) Other specified postprocedural states (06/02/20) Physical Therapy Treatment Note PT-OP-A Visit Information Start: 01/22/20 16:19 Freq: Status: Active Protocol: Document 06/02/20 12:58 HH (Rec: 06/02/20 15:33 HH [id number]) Out-Patient Physical Therapy Visit Information Visit Information Visit Type Treatment Note Visit Note pt is 15mins late Visit Start Time 13:15 Visit Stop Time 13:45 Total Visit Minutes 30 Visit Number Number of TENANT RELATIONS COORDINATOR Visits 0 PT-OP-B Current Condition Start: 01/22/20 16:19 Freq: Status: Active Protocol: Document 01/22/20 16:20 HH (Rec: 01/22/20 17:26 HH [email or web address]) Current Condition History of Current Condition Onset Date 08/08/19 Current Complaints L foot pain and numbness, foot weakness with decreased balance History of Current Condition Pt is a 49 yo female here for her L foot pain, numbness, weakness and decreased balance since last year. Pt was found to have a nonenhancing cystic appearaning approximately 2 cm ganglion cyst at the medial ankle deep to the flexor retinaculum abutting the posterior tibial nerve earlier this year and required to have removal of the cyst and decompression of the tarsal tunnel on 08/08/19 . In addition, pt then had infection at surigcal site and required I & D on 09/04/19, along with weeks of wound care tx after. Pt currently still has residual pain at medial ankle and plantar surface especially with pressure at her surgical site; numbness to the entire plantar surface, and dorsal surface of the 4th and 5th toes. Pt noticed she has weakness with her toes since surgery and so does her balance. Her pain, numbness has been significantly limiting her mobility who cannot tolerate standing/ walking/ exercising for more than 10 mins. She also has trouble putting weight on L foot in the morning which requires her to gradually WB on it to start. She is currently taking hydrocodone 10mg every 6-8 hrs a day. Pt also stated she has multiple ankle sprains in the past which her ortho team believes that could be the cause of her ganglion cyst. Prior Treatments and Tests Irrigation debridement skin muscle fascia 20 sq cm or less 09/04/19 removal of ganglion cyst and decompression of the tarsal tunnel 08/08/19 Treatment Goals Patient/Caregiver Goals 1. To regain her foot strength and balance 2. To reduce her foot pain during mobility such as standing/ walking. Personal Factors Other Personal Factors That May Effect fibromyalgia Therapy/Recovery current smoker PT-OP-C Subjective Start: 01/22/20 16:19 Freq: Status: Active Protocol: Document 06/02/20 12:58 HH (Rec: 06/02/20 15:33 HH [id number]) OP-PT Subjective Patient Comments Patient Comments My knee feels better now and my ankle felt pretty sore and i havent done much strengthening but lots of stretching. PT-OP-D Balance Start: 01/22/20 16:19 Freq: Status: Active Protocol: Document 03/31/20 14:29 HH (Rec: 03/31/20 16:21 HH [id number]) Balance Tests Single Limb Standing Single Limb- Right 50s Single Limb- Left 39s PT-OP-F Manual Assessment Start: 01/22/20 16:19 Freq: Status: Active Protocol: Document 01/22/20 16:20 HH (Rec: 01/22/20 17:26 HH [email or web address]) Manual Assessments Soft Tissue Assessment Soft Tissue Mobility Assessment TTP below surgical site and report of radiating pain to the entire plantar surface of the L foot PT-OP-G Mobility & Gait Start: 01/22/20 16:19 Freq: Status: Active Protocol: Document 01/22/20 16:20 HH (Rec: 01/22/20 17:26 HH [email or web address]) OP Gait Assessment Factors Limiting Gait Function Factors Limiting Gait Function Decreased Activity Tolerance, Decreased Sensation,Decreased Strength,Limited Range of Motion,Pain,Poor Balance Comments Gait Comments pt walks with flat footed on L side with minimal heel strike and toes push off. PT-OP-J Posture/Palpation/Skin Start: 01/22/20 16:19 Freq: Status: Active Protocol: Document 01/22/20 17:26 HH (Rec: 01/22/20 17:27 HH [email or web address]) Skin Assessment Circumference Measurement L ankle Location figure 8 ( above maleoli then 5th met head) Comments 22 inches R ankle Location figure 8 ( above maleoli then 5th met head) Comments 20 inches PT-OP-K Range of Motion Start: 01/22/20 16:19 Freq: Status: Active Protocol: Document 01/22/20 16:20 HH (Rec: 01/22/20 17:26 [email or web address]) Ankle and Foot Goniometric Range of Motion Ankle and Foot Right Active Ankle/Foot ROM WFL Yes Testing Position Supine Dorsiflexion with Knee Flexed 21 Dorsiflexion with Knee Extended 12 Plantarflexion 55 Inversion 40 Eversion 21 Left Active Ankle/Foot ROM WFL Yes Testing Position Supine Dorsiflexion with Knee Flexed 15 Dorsiflexion with Knee Extended 12 Plantarflexion 38 Inversion 30 Eversion 15 Ankle and Foot ROM Limitations ROM Limitations Muscle Weakness PT-OP-M Strength Start: 01/22/20 16:19 Freq: Status: Active Protocol: Document 01/22/20 16:20 HH (Rec: 01/22/20 17:26 [email or web address]) Knee Strength Knee Manual Muscle Testing Right Flexion (S2) 4+ Good+ Extension (L3) 4+ Good+ Left Flexion (S2) 4+ Good+ Extension (L3) 4+ Good+ Ankle/Foot Strength Ankle and Foot Manual Muscle Testing Right Dorsiflexion (L4) 5 Normal Plantarflexion (S1) 5 Normal Inversion 5 Normal Eversion (S1) 5 Normal Left Dorsiflexion (L4) 4+ Good+ Plantarflexion (S1) 3+ Fair+ Inversion 3+ Fair+ Eversion (S1) 4 Good Toe Strength Toe Manual Muscle Testing Right Great Toe Flexion 5 Normal Extension 5 Normal Left Great Toe Flexion 3+ Fair+ Extension 4+ Good+ Comments 2nd- 5th toes have minimal abduction noted and flexion noted ~ 3/5 PT-OP-Q Treatments Start: 01/22/20 16:19 Freq: Status: Active Protocol: Document 06/02/20 12:58 HH (Rec: 06/02/20 15:33 [id number]) Therapeutic Exercises Supine Exercises 4 way ankle Side bilateral Equipment Used yellow band Reps/Minutes 10 x 3 Comments DF, PF, INV Standing Exercises step up Equipment Used 12 inch box Reps/Minutes 10 x2 calf raises Side bilateral Reps/Minutes 8 x2 Comments able to maintain L knee extended calf and soleus stretch Side left Comments able to feel the stretch ankle board Standing Exercise Name ankle DF/PF, followed by side to side Side bilateral Manual Therapy Treatment Soft Tissue Mobilization anterior tib Mobilization Type Rolling,Sustained Pressure, Trigger Point Release Intensity/Depth Moderate Body Position Supine Neuro Re-Education Treatment Balance Activities toe tap 3 way Details cones fwd, lateral, bwd Surface ground level Reps/Duration 8 mins SLS Surface blue foam then even surface Reps/Duration 10-20 sec x5 PT-OP-T Assessment and Plan Start: 01/22/20 16:19 Freq: Status: Active Protocol: Document 06/02/20 12:58 HH (Rec: 06/02/20 15:33 HH [id number]) Physical Therapy Assessment Goals pain Impairment pt c/o heel and medial arch pain in AM 5/10 Short Term Goal (STG) 05/26 pt has 3/10 pain in average as she stated. Dean Goal (LTG) pt will improve her ankle foot strength and mobility so she reports no more than 2/10 foot pain in AM LTG Duration 8 weeks Single leg balance Impairment L SLS = 18s Short Term Goal (STG) 03/31 LSLS= 39s 05/26 LSLS= 39S Dean Goal (LTG) Pt will improve her SL balance up to 1 min with minimal discomfort so she climbs stairs/ steps with minimal discomfort. LTG Duration 8 weeks activity tolerance Impairment unable to stand/ walk > 10 mins Short Term Goal (STG) 05/26 pt is able to amb with regular shoes without increased discomfort Care Home Goal (LTG) pt will be able to stand/ walk with a proper gait mechanics >30 mins with minimal pain/ discomfort LTG Duration 8 weeks FAAM Impairment pt scores 43 on 05/26 Short Term Goal (STG) 03/31 pt scores 39 05/26 pt scores 43 pt will score 49 or greater to improve her over ankle mobility and strength. STG Duration 4 weeks Dean Goal (LTG) pt will score 66 or greater to improve her over ankle mobility and strength. LTG Duration 8 weeks LEFS Impairment pt scores 40 Short Term Goal (STG) 03/31 pt scores 40 on LEFS 05/26 pt scores 39 on LEFS Pt will score 47 or greater on LEFS to improve her functional mobility STG Duration 4 weeks Dean Goal (LTG) Pt will score 62 or greater on LEFS to improve her functional mobility and quality of life LTG Duration 8 weeks Assessment Summary Assessment Pt overall improved ankle ROM and better management with her daily steps count. Educated her to keep step counts <10k steps/day consistently instead of fluctuated steps to prevent overload L ankle. Physical Therapy Plan Frequency and Duration Frequency of Treatment 2x/Week, 1x/wk Duration of Treatment 10 weeks Plan of Care Start Date 05/26/20 Plan of Care End Date 07/27/20 Next Visit Focus/Plan Next Note Type Treatment Note Next Visit Plan 4 way ankle focus SL balance, calf raises, INV, SL strnegthening
--- NOTE | 2020-06-09 11:57 | PT.OTN ---
Current Diagnoses Effusion, left ankle (06/09/20) Pain in left foot (06/09/20) Other specified postprocedural states (06/09/20) Physical Therapy Treatment Note PT-OP-A Visit Information Start: 01/22/20 16:19 Freq: Status: Active Protocol: Document 06/09/20 10:32 HH (Rec: 06/09/20 11:57 HH [id number]) Out-Patient Physical Therapy Visit Information Visit Information Visit Type Treatment Note Visit Note pt is going to have abdominal hysterectomy on . Visit Start Time 10:33 Visit Stop Time 11:16 Total Visit Minutes 43 Visit Number Number of FILER REPAIRER Visits 0 PT-OP-B Current Condition Start: 01/22/20 16:19 Freq: Status: Active Protocol: Document 01/22/20 16:20 HH (Rec: 01/22/20 17:26 [email or web address]) Current Condition History of Current Condition Onset Date 08/08/19 Current Complaints L foot pain and numbness, foot weakness with decreased balance History of Current Condition Pt is a 49 yo female here for her L foot pain, numbness, weakness and decreased balance since last year. Pt was found to have a nonenhancing cystic appearaning approximately 2 cm ganglion cyst at the medial ankle deep to the flexor retinaculum abutting the posterior tibial nerve earlier this year and required to have removal of the cyst and decompression of the tarsal tunnel on 08/08/19 . In addition, pt then had infection at surigcal site and required I & D on 09/04/19, along with weeks of wound care tx after. Pt currently still has residual pain at medial ankle and plantar surface especially with pressure at her surgical site; numbness to the entire plantar surface, and dorsal surface of the 4th and 5th toes. Pt noticed she has weakness with her toes since surgery and so does her balance. Her pain, numbness has been significantly limiting her mobility who cannot tolerate standing/ walking/ exercising for more than 10 mins. She also has trouble putting weight on L foot in the morning which requires her to gradually WB on it to start. She is currently taking hydrocodone 10mg every 6-8 hrs a day. Pt also stated she has multiple ankle sprains in the past which her ortho team believes that could be the cause of her ganglion cyst. Prior Treatments and Tests Irrigation debridement skin muscle fascia 20 sq cm or less 4/7/20 removal of ganglion cyst and decompression of the tarsal tunnel 08/08/19 Treatment Goals Patient/Caregiver Goals 1. To regain her foot strength and balance 2. To reduce her foot pain during mobility such as standing/ walking. Personal Factors Other Personal Factors That May Effect fibromyalgia Therapy/Recovery current smoker PT-OP-C Subjective Start: 01/22/20 16:19 Freq: Status: Active Protocol: Document 06/09/20 10:32 HH (Rec: 06/09/20 11:57 HH [id number]) OP-PT Subjective Patient Comments Patient Comments I was doing fine after last session until Tuesday. My entire L leg was very swollen with bruises and painful and idont know why. I think its possibly from my ongoing gonzalez cyst so it hurt my knee a lot . Im going to schedule a consultation with my foot doctor in [place] soon. My foot has been doing okay since i didnt do much. PT-OP-D Balance Start: 01/22/20 16:19 Freq: Status: Active Protocol: Document 03/31/20 14:29 HH (Rec: 03/31/20 16:21 HH [id number]) Balance Tests Single Limb Standing Single Limb- Right 50s Single Limb- Left 39s PT-OP-F Manual Assessment Start: 01/22/20 16:19 Freq: Status: Active Protocol: Document 01/22/20 16:20 HH (Rec: 01/22/20 17:26 HH [email or web address]) Manual Assessments Soft Tissue Assessment Soft Tissue Mobility Assessment TTP below surgical site and report of radiating pain to the entire plantar surface of the L foot PT-OP-G Mobility & Gait Start: 01/22/20 16:19 Freq: Status: Active Protocol: Document 01/22/20 16:20 HH (Rec: 01/22/20 17:26 HH [email or web address]) OP Gait Assessment Factors Limiting Gait Function Factors Limiting Gait Function Decreased Activity Tolerance, Decreased Sensation,Decreased Strength,Limited Range of Motion,Pain,Poor Balance Comments Gait Comments pt walks with flat footed on L side with minimal heel strike and toes push off. PT-OP-J Posture/Palpation/Skin Start: 01/22/20 16:19 Freq: Status: Active Protocol: Document 01/22/20 17:26 HH (Rec: 01/22/20 17:27 [email or web address]) Skin Assessment Circumference Measurement L ankle Location figure 8 ( above maleoli then 5th met head) Comments 22 inches R ankle Location figure 8 ( above maleoli then 5th met head) Comments 20 inches PT-OP-K Range of Motion Start: 01/22/20 16:19 Freq: Status: Active Protocol: Document 01/22/20 16:20 HH (Rec: 01/22/20 17:26 [email or web address]) Ankle and Foot Goniometric Range of Motion Ankle and Foot Right Active Ankle/Foot ROM WFL Yes Testing Position Supine Dorsiflexion with Knee Flexed 21 Dorsiflexion with Knee Extended 12 Plantarflexion 55 Inversion 40 Eversion 21 Left Active Ankle/Foot ROM WFL Yes Testing Position Supine Dorsiflexion with Knee Flexed 15 Dorsiflexion with Knee Extended 12 Plantarflexion 38 Inversion 30 Eversion 15 Ankle and Foot ROM Limitations ROM Limitations Muscle Weakness PT-OP-M Strength Start: 01/22/20 16:19 Freq: Status: Active Protocol: Document 01/22/20 16:20 HH (Rec: 01/22/20 17:26 [email or web address]) Knee Strength Knee Manual Muscle Testing Right Flexion (S2) 4+ Good+ Extension (L3) 4+ Good+ Left Flexion (S2) 4+ Good+ Extension (L3) 4+ Good+ Ankle/Foot Strength Ankle and Foot Manual Muscle Testing Right Dorsiflexion (L4) 5 Normal Plantarflexion (S1) 5 Normal Inversion 5 Normal Eversion (S1) 5 Normal Left Dorsiflexion (L4) 4+ Good+ Plantarflexion (S1) 3+ Fair+ Inversion 3+ Fair+ Eversion (S1) 4 Good Toe Strength Toe Manual Muscle Testing Right Great Toe Flexion 5 Normal Extension 5 Normal Left Great Toe Flexion 3+ Fair+ Extension 4+ Good+ Comments 2nd- 5th toes have minimal abduction noted and flexion noted ~ 3/5 PT-OP-Q Treatments Start: 01/22/20 16:19 Freq: Status: Active Protocol: Document 06/09/20 10:32 HH (Rec: 06/09/20 11:57 [id number]) Therapeutic Exercises Supine Exercises tracy stretch Supine Exercise Name for quad tightness Side left Sidelying Exercises SL hip abduction Side bilateral Reps/Minutes 8 x2 clam shell Side bilateral Reps/Minutes 10 x2 Sitting Exercises BAP board Side left Equipment Used level3 Reps/Minutes 10 mins Comments anticlockwise and clockwise Standing Exercises calf raises Standing Exercise Name to midrange Side bilateral Reps/Minutes 8 x2 Comments able to maintain L knee extended calf and soleus stretch Side left Comments able to feel the stretch PT-OP-T Assessment and Plan Start: 01/22/20 16:19 Freq: Status: Active Protocol: Document 06/09/20 10:32 HH (Rec: 06/09/20 11:57 HH [email or web address]) Physical Therapy Assessment Goals pain Impairment pt c/o heel and medial arch pain in AM 5/10 Short Term Goal (STG) 05/26 pt has 3/10 pain in average as she stated. Inventory Manager Goal (LTG) pt will improve her ankle foot strength and mobility so she reports no more than 2/10 foot pain in AM LTG Duration 8 weeks Single leg balance Impairment L SLS = 18s Short Term Goal (STG) 03/31 LSLS= 39s 05/26 LSLS= 39S Inventory Manager Goal (LTG) Pt will improve her SL balance up to 1 min with minimal discomfort so she climbs stairs/ steps with minimal discomfort. LTG Duration 8 weeks activity tolerance Impairment unable to stand/ walk > 10 mins Short Term Goal (STG) 05/26 pt is able to amb with regular shoes without increased discomfort Alf Goal (LTG) pt will be able to stand/ walk with a proper gait mechanics >30 mins with minimal pain/ discomfort LTG Duration 8 weeks FAAM Impairment pt scores 43 on 05/26 Short Term Goal (STG) 03/31 pt scores 39 05/26 pt scores 43 pt will score 49 or greater to improve her over ankle mobility and strength. STG Duration 4 weeks Alf Goal (LTG) pt will score 66 or greater to improve her over ankle mobility and strength. LTG Duration 8 weeks LEFS Impairment pt scores 40 Short Term Goal (STG) 03/31 pt scores 40 on LEFS 05/26 pt scores 39 on LEFS Pt will score 47 or greater on LEFS to improve her functional mobility STG Duration 4 weeks Inventory Manager Goal (LTG) Pt will score 62 or greater on LEFS to improve her functional mobility and quality of life LTG Duration 8 weeks Assessment Summary Assessment Pt came in with swelling noted at L medial knee but not tender to touch/ pressure. Her L ankle is still doing fine but she is going to consult with foot doctor in [place] since pt stated she has vascular issue at her femoral artery and ongiong gonzalez cyst issue. Pt is also going to have abdominal hysterectomy on . Expect pt to skip a few appointments for recovery. Will cont monitor pt's progress. Physical Therapy Plan Frequency and Duration Frequency of Treatment 2x/Week, 1x/wk Duration of Treatment 10 weeks Plan of Care Start Date 05/26/20 Plan of Care End Date 07/27/20 Next Visit Focus/Plan Next Note Type Treatment Note Next Visit Plan 4 way ankle focus SL balance, calf raises, INV, SL strnegthening
--- NOTE | 2020-06-12 15:12 | PT.OTN ---
Current Diagnoses Effusion, left ankle (06/12/20) Pain in left foot (06/12/20) Other specified postprocedural states (06/12/20) Physical Therapy Treatment Note PT-OP-A Visit Information Start: 01/22/20 16:19 Freq: Status: Active Protocol: Document 06/12/20 13:04 HH (Rec: 06/12/20 14:36 HH [email or web address]) Out-Patient Physical Therapy Visit Information Visit Information Visit Type Treatment Note Visit Start Time 13:04 Visit Stop Time 13:46 Total Visit Minutes 42 Visit Number Number of COVERAGE SPECIALIST Visits 0 PT-OP-B Current Condition Start: 01/22/20 16:19 Freq: Status: Active Protocol: Document 01/22/20 16:20 HH (Rec: 01/22/20 17:26 HH [email or web address]) Current Condition History of Current Condition Onset Date 08/08/19 Current Complaints L foot pain and numbness, foot weakness with decreased balance History of Current Condition Pt is a 49 yo female here for her L foot pain, numbness, weakness and decreased balance since last year. Pt was found to have a nonenhancing cystic appearaning approximately 2 cm ganglion cyst at the medial ankle deep to the flexor retinaculum abutting the posterior tibial nerve earlier this year and required to have removal of the cyst and decompression of the tarsal tunnel on 08/08/19 . In addition, pt then had infection at surigcal site and required I & D on 09/04/19, along with weeks of wound care tx after. Pt currently still has residual pain at medial ankle and plantar surface especially with pressure at her surgical site; numbness to the entire plantar surface, and dorsal surface of the 4th and 5th toes. Pt noticed she has weakness with her toes since surgery and so does her balance. Her pain, numbness has been significantly limiting her mobility who cannot tolerate standing/ walking/ exercising for more than 10 mins. She also has trouble putting weight on L foot in the morning which requires her to gradually WB on it to start. She is currently taking hydrocodone 10mg every 6-8 hrs a day. Pt also stated she has multiple ankle sprains in the past which her ortho team believes that could be the cause of her ganglion cyst. Prior Treatments and Tests Irrigation debridement skin muscle fascia 20 sq cm or less 09/04/19 removal of ganglion cyst and decompression of the tarsal tunnel 08/08/19 Treatment Goals Patient/Caregiver Goals 1. To regain her foot strength and balance 2. To reduce her foot pain during mobility such as standing/ walking. Personal Factors Other Personal Factors That May Effect fibromyalgia Therapy/Recovery current smoker PT-OP-C Subjective Start: 01/22/20 16:19 Freq: Status: Active Protocol: Document 06/12/20 13:04 HH (Rec: 06/12/20 14:36 HH [id number]) OP-PT Subjective Patient Comments Patient Comments My foot is swollen today for some reason. I didnt too much yesterday though. I went to see chiropractic tx and he adjusted my ankle so it felt better. PT-OP-D Balance Start: 01/22/20 16:19 Freq: Status: Active Protocol: Document 03/31/20 14:29 HH (Rec: 03/31/20 16:21 HH [id number]) Balance Tests Single Limb Standing Single Limb- Right 50s Single Limb- Left 39s PT-OP-F Manual Assessment Start: 01/22/20 16:19 Freq: Status: Active Protocol: Document 01/22/20 16:20 HH (Rec: 01/22/20 17:26 HH [email or web address]) Manual Assessments Soft Tissue Assessment Soft Tissue Mobility Assessment TTP below surgical site and report of radiating pain to the entire plantar surface of the L foot PT-OP-G Mobility & Gait Start: 01/22/20 16:19 Freq: Status: Active Protocol: Document 01/22/20 16:20 HH (Rec: 01/22/20 17:26 HH [email or web address]) OP Gait Assessment Factors Limiting Gait Function Factors Limiting Gait Function Decreased Activity Tolerance, Decreased Sensation,Decreased Strength,Limited Range of Motion,Pain,Poor Balance Comments Gait Comments pt walks with flat footed on L side with minimal heel strike and toes push off. PT-OP-J Posture/Palpation/Skin Start: 01/22/20 16:19 Freq: Status: Active Protocol: Document 01/22/20 17:26 HH (Rec: 01/22/20 17:27 HH [email or web address]) Skin Assessment Circumference Measurement L ankle Location figure 8 ( above maleoli then 5th met head) Comments 22 inches R ankle Location figure 8 ( above maleoli then 5th met head) Comments 20 inches PT-OP-K Range of Motion Start: 01/22/20 16:19 Freq: Status: Active Protocol: Document 01/22/20 16:20 (Rec: 01/22/20 17:26 [email or web address]) Ankle and Foot Goniometric Range of Motion Ankle and Foot Right Active Ankle/Foot ROM WFL Yes Testing Position Supine Dorsiflexion with Knee Flexed 21 Dorsiflexion with Knee Extended 12 Plantarflexion 55 Inversion 40 Eversion 21 Left Active Ankle/Foot ROM WFL Yes Testing Position Supine Dorsiflexion with Knee Flexed 15 Dorsiflexion with Knee Extended 12 Plantarflexion 38 Inversion 30 Eversion 15 Ankle and Foot ROM Limitations ROM Limitations Muscle Weakness PT-OP-M Strength Start: 01/22/20 16:19 Freq: Status: Active Protocol: Document 01/22/20 16:20 (Rec: 01/22/20 17:26 [email or web address]) Knee Strength Knee Manual Muscle Testing Right Flexion (S2) 4+ Good+ Extension (L3) 4+ Good+ Left Flexion (S2) 4+ Good+ Extension (L3) 4+ Good+ Ankle/Foot Strength Ankle and Foot Manual Muscle Testing Right Dorsiflexion (L4) 5 Normal Plantarflexion (S1) 5 Normal Inversion 5 Normal Eversion (S1) 5 Normal Left Dorsiflexion (L4) 4+ Good+ Plantarflexion (S1) 3+ Fair+ Inversion 3+ Fair+ Eversion (S1) 4 Good Toe Strength Toe Manual Muscle Testing Right Great Toe Flexion 5 Normal Extension 5 Normal Left Great Toe Flexion 3+ Fair+ Extension 4+ Good+ Comments 2nd- 5th toes have minimal abduction noted and flexion noted ~ 3/5 PT-OP-Q Treatments Start: 01/22/20 16:19 Freq: Status: Active Protocol: Document 06/12/20 13:04 (Rec: 06/12/20 14:36 [id number]) Cardio Equipment Bicycle (Upright) Duration (Minutes) 6 Resistance 5 Therapeutic Exercises Supine Exercises tracy stretch Supine Exercise Name for quad tightness Side left Sidelying Exercises SL hip abduction Side bilateral Reps/Minutes 8 x2 clam shell Side bilateral Reps/Minutes 10 x2 Sitting Exercises BAP board Side left Equipment Used level3 Reps/Minutes 10 mins Comments anticlockwise and clockwise Standing Exercises calf and soleus stretch Side left Comments able to feel the stretch ankle board Standing Exercise Name ankle DF/PF, followed by side to side Side bilateral Manual Therapy Treatment Soft Tissue Mobilization gastro Mobilization Type Sustained Pressure,Trigger Point Release Intensity/Depth Moderate Body Position Supine Joint Mobilizations fibular glide Grade II Body Position Supine Comments post glide PT-OP-T Assessment and Plan Start: 01/22/20 16:19 Freq: Status: Active Protocol: Document 06/12/20 13:04 (Rec: 06/12/20 14:36 [id number]) Physical Therapy Assessment Goals pain Impairment pt c/o heel and medial arch pain in AM 5/10 Short Term Goal (STG) 05/26 pt has 3/10 pain in average as she stated. Snf Goal (LTG) pt will improve her ankle foot strength and mobility so she reports no more than 2/10 foot pain in AM LTG Duration 8 weeks Single leg balance Impairment L SLS = 18s Short Term Goal (STG) 03/31 LSLS= 39s 05/26 LSLS= 39S [employer] Windows Engineer Goal (LTG) Pt will improve her SL balance up to 1 min with minimal discomfort so she climbs stairs/ steps with minimal discomfort. LTG Duration 8 weeks activity tolerance Impairment unable to stand/ walk > 10 mins Short Term Goal (STG) 05/26 pt is able to amb with regular shoes without increased discomfort Snf Goal (LTG) pt will be able to stand/ walk with a proper gait mechanics >30 mins with minimal pain/ discomfort LTG Duration 8 weeks FAAM Impairment pt scores 43 on 05/26 Short Term Goal (STG) 03/31 pt scores 39 05/26 pt scores 43 pt will score 49 or greater to improve her over ankle mobility and strength. STG Duration 4 weeks [employer] Engineer Goal (LTG) pt will score 66 or greater to improve her over ankle mobility and strength. LTG Duration 8 weeks LEFS Impairment pt scores 40 Short Term Goal (STG) 03/31 pt scores 40 on LEFS 05/26 pt scores 39 on LEFS Pt will score 47 or greater on LEFS to improve her functional mobility STG Duration 4 weeks Snf Goal (LTG) Pt will score 62 or greater on LEFS to improve her functional mobility and quality of life LTG Duration 8 weeks Assessment Summary Assessment Pt has increaesd swelling on L lower leg and foot today but pt has been staying under 10k steps recently. Did recommend pt to consult with her cardiovascular doctor. Pt's stiffness did improve after manual therapy Physical Therapy Plan Frequency and Duration Frequency of Treatment 2x/Week, 1x/wk Duration of Treatment 10 weeks Plan of Care Start Date 05/26/20 Plan of Care End Date 07/27/20 Next Visit Focus/Plan Next Note Type Treatment Note Next Visit Plan 4 way ankle focus SL balance, calf raises, INV, SL strnegthening
--- NOTE | 2020-06-16 17:37 | PT.OTN ---
Current Diagnoses Effusion, left ankle (06/16/20) Pain in left foot (06/16/20) Other specified postprocedural states (06/16/20) Physical Therapy Treatment Note PT-OP-A Visit Information Start: 01/22/20 16:19 Freq: Status: Active Protocol: Document 06/16/20 17:28 HH (Rec: 06/16/20 17:37 HH [email or web address]) Out-Patient Physical Therapy Visit Information Visit Information Visit Type Treatment Note Visit Start Time 15:20 Visit Stop Time 16:05 Total Visit Minutes 45 Visit Number Number of CLOSING COORDINATOR Visits 0 PT-OP-B Current Condition Start: 01/22/20 16:19 Freq: Status: Active Protocol: Document 01/22/20 16:20 HH (Rec: 01/22/20 17:26 HH [email or web address]) Current Condition History of Current Condition Onset Date 08/08/19 Current Complaints L foot pain and numbness, foot weakness with decreased balance History of Current Condition Pt is a 49 yo female here for her L foot pain, numbness, weakness and decreased balance since last year. Pt was found to have a nonenhancing cystic appearaning approximately 2 cm ganglion cyst at the medial ankle deep to the flexor retinaculum abutting the posterior tibial nerve earlier this year and required to have removal of the cyst and decompression of the tarsal tunnel on 08/08/19 . In addition, pt then had infection at surigcal site and required I & D on 09/04/19, along with weeks of wound care tx after. Pt currently still has residual pain at medial ankle and plantar surface especially with pressure at her surgical site; numbness to the entire plantar surface, and dorsal surface of the 4th and 5th toes. Pt noticed she has weakness with her toes since surgery and so does her balance. Her pain, numbness has been significantly limiting her mobility who cannot tolerate standing/ walking/ exercising for more than 10 mins. She also has trouble putting weight on L foot in the morning which requires her to gradually WB on it to start. She is currently taking hydrocodone 10mg every 6-8 hrs a day. Pt also stated she has multiple ankle sprains in the past which her ortho team believes that could be the cause of her ganglion cyst. Prior Treatments and Tests Irrigation debridement skin muscle fascia 20 sq cm or less 4/7/20 removal of ganglion cyst and decompression of the tarsal tunnel 08/08/19 Treatment Goals Patient/Caregiver Goals 1. To regain her foot strength and balance 2. To reduce her foot pain during mobility such as standing/ walking. Personal Factors Other Personal Factors That May Effect fibromyalgia Therapy/Recovery current smoker PT-OP-C Subjective Start: 01/22/20 16:19 Freq: Status: Active Protocol: Document 06/16/20 17:28 HH (Rec: 06/16/20 17:37 HH [email or web address]) OP-PT Subjective Patient Comments Patient Comments 'My foot is getting better and its not as swollen now. Im going to have tele visit with my vascular MD next week. Patient Reported Progress Improving PT-OP-D Balance Start: 01/22/20 16:19 Freq: Status: Active Protocol: Document 03/31/20 14:29 HH (Rec: 03/31/20 16:21 [id number]) Balance Tests Single Limb Standing Single Limb- Right 50s Single Limb- Left 39s PT-OP-F Manual Assessment Start: 01/22/20 16:19 Freq: Status: Active Protocol: Document 01/22/20 16:20 HH (Rec: 01/22/20 17:26 HH [email or web address]) Manual Assessments Soft Tissue Assessment Soft Tissue Mobility Assessment TTP below surgical site and report of radiating pain to the entire plantar surface of the L foot PT-OP-G Mobility & Gait Start: 01/22/20 16:19 Freq: Status: Active Protocol: Document 01/22/20 16:20 HH (Rec: 01/22/20 17:26 HH [email or web address]) OP Gait Assessment Factors Limiting Gait Function Factors Limiting Gait Function Decreased Activity Tolerance, Decreased Sensation,Decreased Strength,Limited Range of Motion,Pain,Poor Balance Comments Gait Comments pt walks with flat footed on L side with minimal heel strike and toes push off. PT-OP-J Posture/Palpation/Skin Start: 01/22/20 16:19 Freq: Status: Active Protocol: Document 01/22/20 17:26 HH (Rec: 01/22/20 17:27 HH [email or web address]) Skin Assessment Circumference Measurement L ankle Location figure 8 ( above maleoli then 5th met head) Comments 22 inches R ankle Location figure 8 ( above maleoli then 5th met head) Comments 20 inches PT-OP-K Range of Motion Start: 01/22/20 16:19 Freq: Status: Active Protocol: Document 01/22/20 16:20 HH (Rec: 01/22/20 17:26 [email or web address]) Ankle and Foot Goniometric Range of Motion Ankle and Foot Right Active Ankle/Foot ROM WFL Yes Testing Position Supine Dorsiflexion with Knee Flexed 21 Dorsiflexion with Knee Extended 12 Plantarflexion 55 Inversion 40 Eversion 21 Left Active Ankle/Foot ROM WFL Yes Testing Position Supine Dorsiflexion with Knee Flexed 15 Dorsiflexion with Knee Extended 12 Plantarflexion 38 Inversion 30 Eversion 15 Ankle and Foot ROM Limitations ROM Limitations Muscle Weakness PT-OP-M Strength Start: 01/22/20 16:19 Freq: Status: Active Protocol: Document 01/22/20 16:20 (Rec: 01/22/20 17:26 [email or web address]) Knee Strength Knee Manual Muscle Testing Right Flexion (S2) 4+ Good+ Extension (L3) 4+ Good+ Left Flexion (S2) 4+ Good+ Extension (L3) 4+ Good+ Ankle/Foot Strength Ankle and Foot Manual Muscle Testing Right Dorsiflexion (L4) 5 Normal Plantarflexion (S1) 5 Normal Inversion 5 Normal Eversion (S1) 5 Normal Left Dorsiflexion (L4) 4+ Good+ Plantarflexion (S1) 3+ Fair+ Inversion 3+ Fair+ Eversion (S1) 4 Good Toe Strength Toe Manual Muscle Testing Right Great Toe Flexion 5 Normal Extension 5 Normal Left Great Toe Flexion 3+ Fair+ Extension 4+ Good+ Comments 2nd- 5th toes have minimal abduction noted and flexion noted ~ 3/5 PT-OP-Q Treatments Start: 01/22/20 16:19 Freq: Status: Active Protocol: Document 06/16/20 17:28 HH (Rec: 06/16/20 17:37 [email or web address]) Cardio Equipment Bicycle (Upright) Duration (Minutes) 8 Resistance 5 Therapeutic Exercises Sitting Exercises ankle PF and INV Equipment Used with half foam roller Reps/Minutes 4 mins Comments acitve ankle DF and PC marble apple picker Side left Reps/Minutes 10 mins Manual Therapy Treatment Soft Tissue Mobilization gastro Mobilization Type Sustained Pressure,Trigger Point Release Intensity/Depth Moderate Body Position Supine Self-Care/Home Management Treatment Education Patient Education Joint Protection,Pain Management Caregiver Education 15 mins Other Education pt requested to explain her surgical hx and anatomy of tarsal tunnel and pathology of tarsal tunnel syndrome. Explanation of nerve distribution. PT-OP-T Assessment and Plan Start: 01/22/20 16:19 Freq: Status: Active Protocol: Document 06/16/20 17:28 HH (Rec: 06/16/20 17:37 HH [email or web address]) Physical Therapy Assessment Goals pain Impairment pt c/o heel and medial arch pain in AM 5/10 Short Term Goal (STG) 05/26 pt has 3/10 pain in average as she stated. Half-Way Goal (LTG) pt will improve her ankle foot strength and mobility so she reports no more than 2/10 foot pain in AM LTG Duration 8 weeks Single leg balance Impairment L SLS = 18s Short Term Goal (STG) 03/31 LSLS= 39s 05/26 LSLS= 39S Half-Way Goal (LTG) Pt will improve her SL balance up to 1 min with minimal discomfort so she climbs stairs/ steps with minimal discomfort. LTG Duration 8 weeks activity tolerance Impairment unable to stand/ walk > 10 mins Short Term Goal (STG) 05/26 pt is able to amb with regular shoes without increased discomfort Transformer Molder Goal (LTG) pt will be able to stand/ walk with a proper gait mechanics >30 mins with minimal pain/ discomfort LTG Duration 8 weeks FAAM Impairment pt scores 43 on 05/26 Short Term Goal (STG) 03/31 pt scores 39 05/26 pt scores 43 pt will score 49 or greater to improve her over ankle mobility and strength. STG Duration 4 weeks Transformer Molder Goal (LTG) pt will score 66 or greater to improve her over ankle mobility and strength. LTG Duration 8 weeks LEFS Impairment pt scores 40 Short Term Goal (STG) 03/31 pt scores 40 on LEFS 05/26 pt scores 39 on LEFS Pt will score 47 or greater on LEFS to improve her functional mobility STG Duration 4 weeks Half-Way Goal (LTG) Pt will score 62 or greater on LEFS to improve her functional mobility and quality of life LTG Duration 8 weeks Assessment Summary Assessment Spent time to explain the pathology, role of PT, prognosis of her tarsal tunnel syndrome today since pt requested. Pt appreciated the time and showed good understanding. Physical Therapy Plan Frequency and Duration Frequency of Treatment 2x/Week, 1x/wk Duration of Treatment 10 weeks Plan of Care Start Date 05/26/20 Plan of Care End Date 07/27/20 Next Visit Focus/Plan Next Note Type Treatment Note Next Visit Plan 4 way ankle focus SL balance, calf raises, INV, SL strnegthening
--- NOTE | 2020-07-07 15:03 | PT-OP ANOTE ---
Pt came in today to discuss her POC. Pt went to see a new satellite specialist from [facility]. MD stated her x-ray shows 6 bone spurs around her L ankle which was never discussed / noted on any of her previous X-rays and MRI reports. Her MD recommended her to use ankle brace and discontinue therapy for a few weeks first. Pt will have a follow up on Jul 21 to see if she needs further surgical intervention or not. Printed previous x-ray and MRI reports (pre and post surgically) and gave it to pt for her f/u with her foot doctor. Will put pt on hold therapy at this point and f/u with pt in two weeks via phone.
--- NOTE | 2020-10-01 09:18 | PT.OPDS ---
Current Diagnoses Effusion, left ankle (06/16/20) Pain in left foot (06/16/20) Other specified postprocedural states (06/16/20) Visit Care Team Role Provider Type Brent Joiner MD Attending Provider Physician Family Provider Primary Care Provider Referring Provider Specialty: Internal Medicine Address: [address] [place] [address], [address], [address] Email: [email or web address] Visit Number Visit Number Discharge Summary PT-OP-T Assessment and Plan Start: 01/22/20 16:19 Freq: Status: Active Protocol: Document 10/01/20 09:17 (Rec: 10/01/20 09:18 [email or web address]) Physical Therapy Plan Discharge Physical Therapy Discharge Reasons No Longer Attending PT Discharge Comments per EMR, pt had foot surgery again at in August. DC from PT
== END 2020-10-01 14:07 | disposition home or self-care (01) ==
LOC: PHYS 15:15
PROVIDERS: Family Provider Internal Medicine; PCP Internal Medicine; Referring Provider Internal Medicine; Visit Provider Internal Medicine
DX: Z98.890 Other specified postprocedural states (principal); M25.472 Effusion, left ankle; M79.672 Pain in left foot
CPT/HCPCS: 97110; 97112; 97116; 97140; 97162; 97535

== ENCOUNTER → 2020-06-18 10:58 | Outpatient (CLI) | payer BC, SELFPAY ==
[2019-09-04 19:44] VITALS: BMI 35.3
[2020-06-18 11:32] LABS: COVID19 -Nasal RAPID Negative (Negative)
== END ==
PROVIDERS: Family Provider Internal Medicine; PCP Internal Medicine; Visit Provider Obstetrics & Gynecology
DX: Z01.812 Encounter for preprocedural laboratory examination (principal); Z20.822 Contact with and (suspected) exposure to COVID-19
CPT/HCPCS: 87635

== ENCOUNTER 2020-06-19 08:35 | Day surgery (SDC) | payer BC, SELFPAY ==
[2019-09-04 19:44] VITALS: BMI 35.3
[2020-06-19] VITALS (21 sets, daily range): BP systolic 91–125; BP diastolic 42–68; PULSE 52–93; RESP 13–94; TEMP 36.1–37.7; O2SAT 17–100; BMI 33.4
--- NOTE | 2020-06-19 | PATH_ITS ---
[facility] [place] Accession Number: [id number] . 01 Material submitted: . uterus - UTERUS, BILATERAL FALLOPIAN TUBES AND OVARIES . 01 Clinical history: . OPB . 01 Diagnosis: Uterus with Fallopian Tubes and Ovaries, Supracervical Hysterectomy and Bilateral Salpingo-oophorectomy: Endometrium: Disordered proliferative. Myometrium: Multiple leiomyomata without significant atypia. Fallopian Tubes: No significant pathologic abnormalities. Ovaries: Benign surface epithelial inclusion cysts, cystic corpus luteum, corpora albicantia, and non-psammomatous calcifications. [facility] 06/23/2020 1705 Local . 01 Electronically signed: . Amanda Flaherty MD, Pathologist NPI- [id number] . 01 Gross description: . The specimen is received in formalin, labeled uterus, bilateral fallopian tubes and ovaries and consists of a 114-gram fragmented uterus with bilateral fallopian tubes and ovaries. The specimen measures 11.0 x 11.0 x 4.8 cm in aggregate. A cervix is not identified. The serosa is davidson-pink and smooth. Sectioning reveals a davidson-pink glistening endometrium measuring 0.1 cm in thickness. The myometrium is davidson-pink and trabeculated. There are multiple davidson-white whorled leiomyomata ranging from 0.1 to 1.0 cm with no areas of hemorrhage, necrosis or cystic degeneration. The ovaries measure 2.1 x 1.6 x 1.4 cm and 2.5 x 2.2 x 1.1 cm. The external surfaces are davidson and cerebriform. Sectioning reveals a davidson-pink ovarian stroma with multiple smooth walled davidson serous-filled cysts ranging from 0.1 to 1.4 cm. No papillary excrescences are identified. The fallopian tubes average 4.0 cm in length by 0.7 cm in diameter. The serosa is davidson-pink and smooth. Sectioning reveals a davidson mucosa and a pinpoint to stellate lumen measuring 0.3 cm in diameter. Baler Operator sections are submitted. . A1-A2: endomyometrium. A3: bank representative leiomyomata. A4: smaller ovary. A5: attached fallopian tube, bank representative cross-sections and bisected fimbria. A6-A7: larger ovary. A8: attached fallopian tube, bank representative cross-sections and bisected fimbria. (EA:[id number]) /MRV 06/20/2020 1229 Local . 01 Pathologist provided ICD-10: N92.1 . 01 CPT . 658062 Performed at: 01 [facility] [address] [place] [address], [place], [place] [id number] MD Fred Grant MD Phone: [phone]
--- NOTE | 2020-06-19 09:13 | PM.PREOP ---
Pre-operative Note COVID-19 COVID-19 status: Negative Result date/Date tested (Pos, Neg/Pending): 06/18/20 Interval Note History & Physical reviewed/Exam performed by Physician: Yes Changes to H&P: No H&P completed within 30 days and has changed as indicated here:: 05/26/20
[2020-06-19] MEDS: LACTATED RINGERS 1,000 ML 42 ML IV (09:18)
[2020-06-19] MEDS: MIDAZOLAM 2 MG/2 ML VIAL IV (09:29)
[2020-06-19] MEDS: CEFAZOLIN 2 GM/100 ML FROZ.PIGGY IV (09:55)
[2020-06-19] MEDS: BUPIVACAINE 0.5% W/ EPI (PF) 30 ML VIAL INJ (10:34)
[2020-06-19] MEDS: ROPIVACAINE 0.2% PF 2 MG/ML 10ML AMP 20 ML INJ (10:35)
--- NOTE | 2020-06-19 10:37 | SUR.OPER ---
Lithotomy on padded OR bed. [place] Pad Positioner under torso. Head on pillow, arms padded and tucked at sides. Legs secured in padded yellow fins stirrups.
--- NOTE | 2020-06-19 11:29 | P.OP_ITS ---
Operative Date/Time/Diagnoses Date of procedure: 06/19/20 Time of procedure: 11:29 Pre-op diagnosis: menorrhagia left ovarian cyst endometrial polyp Post-op diagnosis: same Procedure & Clinicians Procedure: Procedures Operation Date: 06/19/20 09:45 Actual Procedures Side Surgeon p Laparoscopic Supracervical Hysterectomy w/ Bilateral Salpingo-oophorectomy Zoila Lawson MD Indications: menorrhagia left ovarian cyst endometrial polyp Surgeon: Zoila Lawson Ota: Edda Phillips Anesthesia Type: General and Local Operative Notes Findings: 7 week size anteverted uterus 3 cm simple left ovarian cyst normal right tube and ovary normal left tube normal liver and gallbladder appendix not visualized bladder to uterine adhesions Uterine fibroids Closure Type: primary Specimen(s): left tube & ovary, right tube & ovary and uterus Applied: catheter ( to continuous drainage) Estimated blood loss (mL): 50 Blood products transfused: none Procedure in detail: The patient was taken to the operating room where she was placed in the dorsal supine position. After adequate general endotracheal anesthesia was achieved, she was placed in the dorsal lithotomy position, and prepped and draped in the usual sterile fashion. A timeout was performed. A bivalve speculum was placed into the vagina and the anterior lip of the cervix grasped with a single-tooth tenaculum. An attempt was made to dilate the cervix and lower uterine segment, but unable to pass the Hegar dilator farther than 1 cm due to the previous endometrial ablation. A moistened sponge stick was placed into the vagina. The single-tooth tenaculum was removed from the anterior lip of the cervix, and the bivalve speculum was removed from the vagina. Attention was then turned to the abdomen where 6 mL of half percent Marcaine with epinephrine were injected in the umbilical fold. A 5 mm incision was made. The veress needle was placed into the peritoneal cavity, and its placement confirmed by aspiration and drop test. The veress needle was removed. A 5 mm trocar was placed without difficulty. 2 other incisions were made midway between the pubic symphysis and umbilicus after 5 mL of half percent Marcaine with epinephrine were injected. These were 5 mm incisions. Two, 5 mm trochars were placed under direct visualization. The right tube and ovary were grasped with an atraumatic grasper. Using the plasma kinetic with settings of 40 W the infundibulopelvic ligament was cauterized and cut by the medical record assistant. This was continued with the round ligament and broad ligament by the medical record assistant. Hemostasis was achieved. The bladder flap was created by the medical record assistant using the plasma kinetic with cautery and cut fdc across. The uterine arteries on the right side were extensively cauterized with plasma kinetic by the medical record assistant. All of this was repeated on the left side by the primary surgeon. The remainder of the bladder flap was created using the plasma kinetic, and the bladder taken down off the lower uterine segment and cervix. Using the Linaloop, the medical record assistant was able to grab the ovaries and tubes to make sure they were not caught in the loop. The cervix was amputated from the uterus 2 cm above the uterosacral ligaments. 6 mL of half percent Marcaine with epinephrine were injected above the pubic symphysis. A 12mm incision was made. A 12 mm trocar was placed under direct visualization. An Endobag was placed through the suprapubic trocar and the uterus placed into the Endobag. The edges of the bag were brought up through the skin. The uterus was grabbed with a Samuel clamp. The Isaak was placed into the bag and below the peritoneum. The uterus was morcellated in approximately 12 pieces. The tubes and ovaries were also removed from the Endobag. The Endobag was removed from the peritoneal cavity. The pelvis was copiously irrigated with warm normal saline. No bleeding was noted. 20 mL of 0.2% ropivacaine were placed over the pelvic pedicles. The instruments were removed from the abdomen. The CO2 was allowed to escape. The suprapubic incision was closed on the fascia with 0 Vicryl with retraction from the medical record assistant. All of the incisions were closed with 4-0 Biosyn in a subcuticular fashion. Steri strips, 2x2's and Allevyn dressings were placed over the incisions. The moistened sponge stick was removed from the vagina. Sponge, lap, and instrument counts were correct x 2. The patient tolerated the procedure well, was taken to PACU in stable condition. Complications: none Post-operative Condition: stable Disposition: PACU Plan for aftercare: To Acute Care after Recovery
[2020-06-19] MEDS: fentaNYL 100 MCG/2 ML INJ IV ×2 (11:35→12:43)
[2020-06-19] MEDS: LACTATED RINGERS 1,000 ML 100 ML IV ×3 (11:37→22:47)
[2020-06-19] MEDS: HYDROMORPHONE 2 MG INJ IV (11:40)
[2020-06-19] MEDS: OXYCODONE/ACETAMINOPHEN 5/325 TABLET 2 TAB PO (13:18)
--- NOTE | 2020-06-19 13:49 | SUR.PHASEI ---
report to GIAN Lopez AC. Pt reported decreased pain after 2 percocet administered PO but failed to provided a number. Pt was transported to room 213 in stable condition. No additional updates were reported to receiving RN upon arrival.
[2020-06-19] MEDS: KETOROLAC 30 MG/ML VIAL IV ×3 (14:16→23:57)
--- NOTE | 2020-06-19 14:36 | PC.NURSE ---
Patient received from PACU to room 213, oriented to room and call light. VSS. 4 abd/pelvic lap sites total with allevyn dressings in place, CDI. Patient states pain is improving after medications given in PACU prior to transport. Denies n/v, feels hungry and starting with water and jello at this time. Cohen in place, secure, and draining clear yellow urine. Call light within reach.
[2020-06-19] MEDS: HYDROMORPHONE 0.5 MG INJ IV ×2 (16:19→20:17)
[2020-06-19] MEDS: OXYCODONE/ACETAMINOPHEN 5/325 TABLET 1 TAB PO ×2 (18:46→22:45)
[2020-06-19] MEDS: DOCUSATE 250 MG CAPSULE PO (20:21)
[2020-06-20] MEDS: HYDROMORPHONE 0.5 MG INJ IV ×2 (00:24→07:54)
[2020-06-20] MEDS: OXYCODONE/ACETAMINOPHEN 5/325 TABLET 1 TAB PO ×3 (03:05→13:17)
[2020-06-20 03:20] VITALS: BP 112/56; PULSE 81; RESP 16; TEMP 37.6; O2SAT 96
[2020-06-20 05:29] LABS: Add Manual Diff / Slide Review NO; Basophils Absolute Auto 200 /uL (0-100); Basophils Percent Auto 1.2 % (0-2); Eosinophils Absolute Auto 0 /uL (0-450); Hematocrit 31.9 % (36-46); Hemoglobin 10.5 g/dL (12.0-16.0); Lymphocytes Absolute Auto 2800 /uL (1100-4500); Lymphocytes Percent Auto 19.7 % (25-40); Mean Corpuscular Volume 87.7 fL (80-100); Monocytes Absolute Auto 1000 /uL (0-900); Monocytes Percent Auto 7.4 % (3-14); Neutrophils Absolute Auto 10000 /uL (1500-7000); Neutrophils Percent Auto 71.7 % (50-75); Platelet Count 324 X10^3/uL (150-400); Red Blood Cell Count 3.63 X10^6/uL (4.0-5.2); Red Cell Distribution Width 13.2 % (11.6-14.8)
[2020-06-20] MEDS: KETOROLAC 30 MG/ML VIAL IV (06:37)
[2020-06-20 07:30] VITALS: BP 128/58; PULSE 74; RESP 16; TEMP 36.8; O2SAT 98
[2020-06-20] MEDS: CITALOPRAM 10 MG TABLET 40 MG PO (08:10)
[2020-06-20] MEDS: DOCUSATE 250 MG CAPSULE PO (08:10)
[2020-06-20] MEDS: LACTATED RINGERS 1,000 ML 100 ML IV (08:25)
--- NOTE | 2020-06-20 11:22 | CM.DANOTE ---
Addendum entered by Jeniffer Bradley LPN 06/20/20 11:51: Met with pt now and introduced self and role. A d/c order was just placed and pt reports she is aware of this and that her will be in at about 1300 to take her home. She confirms she is receiving ongoing PT in the OUTPT setting with PT Justin. She does not use an assistive device. Is functionally independent at baseline with some limitations from ankle medical/surgical issues. Original Note: Discharge Planning/Care Management DCP: assessment: Case received, EMR reviewed. Pt is a 49 year old female who admitted to care of Dr. Lawson for a scheduled gynecological surgery. Payer: [facility] of [facility] PCP: Liborio Joiner Discussed in team rounds with RN coordinator noting liklihood of a d/c later today. CM Discharge Assessment Start: 06/20/20 11:21 Freq: Status: Active Protocol: Document 06/20/20 11:22 ITV (Rec: 06/20/20 11:22 IT [id number]) Discharge Planning Assessment Advance Directives? No History Provided By Medical Record Household Members spouse,children
--- NOTE | 2020-06-20 12:56 | PC.NURSE ---
Assess- Patient is a&ox3. She is anxious at times. Given iv dilaudid x1, and then she has been medicated with oxycodone x2. She has small incisions x4 to her lower abdomen and all dressings are cdi.. She has been up to void and is going to be discharged home soon.
== END 2020-06-20 13:30 | disposition home or self-care (01) ==
LOC: OR 08:38 → AC 08:39
PROVIDERS: Family Provider Internal Medicine; PCP Internal Medicine; Referring Provider Obstetrics & Gynecology; Visit Provider Obstetrics & Gynecology
PROC: 0UT94ZL Resection of Uterus, Supracervical, Percutaneous Endoscopic Approach (ICD-10-PCS; CPT 58542; principal; 2020-06-19 09:45)
DX: N84.0 Polyp of corpus uteri (principal); N73.6 Female pelvic peritoneal adhesions (postinfective); D25.9 Leiomyoma of uterus, unspecified; N83.10 Corpus luteum cyst of ovary, unspecified side; N83.8 Other noninflammatory disorders of ovary, fallopian tube and broad ligament
CPT/HCPCS: 58542; 36415; 85025; J0330; J0690; J1100; J1170; J1885; J2250; J2405; J2704; J2795; J3010

== ENCOUNTER → 2020-09-13 11:20 | Outpatient (CLI) | payer BC, SELFPAY ==
[2020-06-19 13:55] VITALS: BMI 33.4
[2020-09-13 13:56] LABS: COVID19 -Nasal RAPID Negative (Negative)
== END ==
PROVIDERS: Family Provider Internal Medicine; PCP Internal Medicine; Visit Provider Physician Assistant
DX: Z20.822 Contact with and (suspected) exposure to COVID-19 (principal)
CPT/HCPCS: 87635

== ENCOUNTER 2020-12-04 15:15 | Outpatient (RCR) | payer BC, SELFPAY ==
[2020-06-19 13:55] VITALS: BMI 33.4
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
--- NOTE | 2020-11-17 16:32 | PT.OPPOC ---
Physical, Occupational & Speech Therapy At [facility] Current Diagnoses Primary osteoarthritis, left ankle and foot (11/17/20) Joint derangement, unspecified (11/17/20) Peroneal tendinitis, left leg (11/17/20) Visit Care Team Role Provider Type Brent Joiner MD Family Provider Physician Primary Care Provider Specialty: Internal Medicine Address: [address] [place] [address], [facility] [address], [place], [address] Email: [email or web address] [place] DPM Attending Provider Non-Staff Referring Provider Specialty: Medical Address: [address] [place] [address], [id number] Fax: Email: Plan Of Care PT-OP-T Assessment and Plan Start: 11/17/20 15:36 Freq: Status: Active Protocol: Document 11/17/20 15:38 (Rec: 11/17/20 16:31 [email or web address]) Physical Therapy Assessment Rehab Potential Rehabilitation Potential Fair Evaluation Complexity Number of Personal Factors/Comorbidities 3 or More Number of Body Systems Impaired 3 Clinical Presentation at Evaluation Stable Impairments Impairments Activity Tolerance,Balance, Functional Activities, Functional Mobility,Gait,Pain, Posture,ROM,Sensation,Soft Tissue Mobility,Strength Other Concerns Barriers to Rehabilitation fibromyalgic ADHD, anxiety and depression Goals pain Impairment severe pain 9/10 Short Term Goal (STG) pt will be able to modify her daily activities by decreasing her steps count <31899 steps to allow recovery and healing process. Use of AD if needed STG Duration 4 weeks [employer] Goal (LTG) pt will be able to tolerate > 59271 steps a day without pain >5/10 LTG Duration 10 weeks gait Impairment +VE trendelenburg sign with valgus moment during LLE stance phase Short Term Goal (STG) pt will show improved SL balance/ stability to be able to balance on 1 leg >15 seconds STG Duration 5 weeks [facility] Goal (LTG) pt will show improved SL balance/ stability to normalize her gait without increase in pain >5/10 LTG Duration 10 weeks FAAM Impairment pt scores 29 Short Term Goal (STG) pt will score 40 or greater to improve her overall ankle mobility and strength STG Duration 5 weeks [facility] Goal (LTG) pt will score 50 or greater to improve her overall ankle mobility and strength LTG Duration 10 weeks LEFS Impairment pt scores 22 Short Term Goal (STG) pt will score 35 or greater on LEFS to improve her functional mobility STG Duration 5 weeks [employer] Goal (LTG) pt will score 45 or greater on LEFS to improve her functional mobility LTG Duration 10 weeks Assessment Summary Assessment Shari is a 49 yo female here for rehab after her complicated surgical history at L ankle since early last year. (see above HPI) Pt continues to have severe pain, limited ROM and strength after her recent arthoscopic ankle surgery 09/16/20 d/t significant OA and bone spurs were found at her L ankle joint. Upon assessment, comparing to the record from her last course of PT here at [facility], her impaired sensation at the plantar surface of L foot, ankle and digital ROM and overall strength remain somewhat similar. In addition, pt has a tendency overdo with her daily activities, along with her ongoing depression and anxiety, will undoubtedly impede her prognosis of rehab from this complicated surgical hx. This is most likely going to be a long course of rehab which targets on improving her overall ankle mobility, strength, balance and pain management. Physical Therapy Plan Frequency and Duration Frequency of Treatment 2x/Week Duration of Treatment 10 weeks Plan of Care Start Date 11/17/20 Plan of Care End Date 01/31/21 Therapeutic Interventions Therapeutic Interventions Aquatic Therapy,Balance Training,Gait Training,Home Exercise Program,Joint Mobilizations,Manual Therapy, Neuromuscular Re-education, Orthotic/Prosthetic Management ,Patient/Caregiver Education, Self-Care/Home Management, Sensory Integration,Soft Tissue Mobilization,Taping, Therapeutic Activities, Therapeutic Exercises Modalities Cold Pack/Ice Massage,Electric Stimulation,Hot Packs, Infrared Therapy,Traction- Mechanical,Ultrasound Next Visit Focus/Plan Next Note Type Treatment Note Next Visit Plan begin gentle ROM ex STM, scar massage, joint mob shoewear education steps count, AD if needed? Plan of Care Dates Plan of Care Start Date 11/17/20 Plan of Care End Date 01/31/21 Electronically Signed by: Yasmeen Mcnamara, PT 11/17/20 [id number] Please Sign and Return: I have reviewed this Plan of Care and certify that the skilled therapy services above are required to meet the patient?s needs. Physician Signature Date Printed Name and Credentials Clinical Instructor Signature Printed Name and Credentials
--- NOTE | 2020-11-20 16:47 | PT.OTN ---
Current Diagnoses Primary osteoarthritis, left ankle and foot (11/20/20) Joint derangement, unspecified (11/20/20) Peroneal tendinitis, left leg (11/20/20) Physical Therapy Treatment Note PT-OP-A Visit Information Start: 11/17/20 15:36 Freq: Status: Active Protocol: Document 11/20/20 15:21 [facility] (Rec: 11/20/20 16:46 [facility] [id number]) Out-Patient Physical Therapy Visit Information Visit Information Visit Type Initial Evaluation Visit Note Doesn't tolerate compression or ice now, gets shooting pains within ankle. Tends to power through the pain. Hasn' t tried kinesiotape. Visit Start Time 15:20 Visit Stop Time 16:20 Total Visit Minutes 60 Visit Number 2/ Number of INTERNATIONAL STUDENT ADVISOR Visits 0 Evaluation Information Evaluation Date 11/17/20 Precautions Precautions fibromyalgia PT-OP-B Current Condition Start: 11/17/20 15:36 Freq: Status: Active Protocol: Document 11/20/20 15:21 [facility] (Rec: 11/20/20 16:46 [facility] [id number]) Current Condition History of Current Condition Onset Date 09/16/20 Current Complaints post op L ankle, difficulty in walking, significant pain History of Current Condition Shari is a 49 yo female here for rehab after her recent L ankle surgery on 09/16/20. Pt has had extensive and complicated ankle surgeries since last year. She initially was found to have a 2 cm ganglion cyst at medial ankle (behind medial malleoli) in late 2018, therefore she had a surgical removal of the cyst and decompression of the tarsal tunnel on 08/08/19 followed by a I &D on 09/04/19 followed by a course of wound care treatment d/t post surgical infection. Pt then had a course of PT ( to May, 2020) here but continued to have severe pain, weakness, limited ROM and sensation loss. Pt then decided to have another arthoscopic surgery 09/16/[address] Ca on her L lateral ankle d/t multiple bone spurs and scar tissues found in the entire ankle. Pt currently has no restriction but her severe pain 9/10 persists, along with limited ROM and strength. Prior Treatments and Tests PT here from Dec, 2019 to May, 2020 without significant improvements. Future Testing and Treatments Planned pt is taking hydrocodone for pain management PT-OP-C Subjective Start: 11/17/20 15:36 Freq: Status: Active Protocol: Document 11/17/20 15:38 [facility] (Rec: 11/17/20 16:31 [email or web address]) OP-PT Subjective Patient Comments Patient Comments Im mad and very very frustrated about this chronic problem Patient Questionnaires Foot & Ankle Ability Measure- ADL and Sports FAAM-ADL Score 22 FAAM-ADL Impairment 60 to 79% Impaired (Score 16- 32) FAAM-Sport Score 9 FAAM-Sport Impairment 60 to 79% Impaired (Score 6-11 ) Lower Extremity Functional Scale LEFS Score 22 LEFS Impairment 60 to 79% Impaired (Score 17- 31) OP-PT Pain Assessment Location L ankle Pain Location Details medial malleoli region and lateral malleoli Intensity 9 Scale Used Numeric (0 - 10) Description Aching,Chronic,Pinching, Pressure,Sharp,Tightness, Tingling,With Movement Frequency Constant Pain Aggravating Factors ADL's,Activity,Exercise, Standing,Walking,Stair Climbing,Lifting Pain Alleviating Factors Inactivity PT-OP-G Mobility & Gait Start: 11/17/20 15:36 Freq: Status: Active Protocol: Document 11/17/20 15:38 [facility] (Rec: 11/17/20 16:31 [email or web address]) OP Gait Assessment Gait Deviations General Gait Pattern Antalgic,Decreased Stride Length,Decreased Feet Clearance Factors Limiting Gait Function Factors Limiting Gait Function Decreased Activity Tolerance, Decreased Strength,Limited Range of Motion,Pain,Poor Balance,Poor Safety Awareness Comments Gait Comments +ve tredelenburg sign on L, increase L valgus moment noted during stance phase PT-OP-H Neuro Start: 11/17/20 15:36 Freq: Status: Active Protocol: Document 11/17/20 15:38 HH (Rec: 11/17/20 16:31 [email or web address]) Sensation Evaluation Gross Sensation Gross Sensation Left LE Impaired Sensation Description Numbness,Tingling,Itching,Pain Location Details Left Ankle Light Touch Impaired Sharp/Dull Impaired Deep Pressure Impaired Hot/Cold Impaired Comments Summary Comments moderately decreased sensation to LT, pressure and pinpick for the entire plantar surface . mildly decreased sensation to LT pressure at lateral malleoli and medial malleoli. Deep Tendon Reflex & Clonus Assessment Deep Tendon Reflex Bilateral Achilles Deep Tendon Reflex 2+ Normal PT-OP-J Posture/Palpation/Skin Start: 11/17/20 15:36 Freq: Status: Active Protocol: Document 11/17/20 15:38 HH (Rec: 11/17/20 16:31 [email or web address]) Skin Assessment Circumference Measurement L ankle Location figure 8 ( above maleoli then 5th met head) Comments 22.5 inches R ankle Location figure 8 ( above maleoli then 5th met head) Comments 21 inches PT-OP-K Range of Motion Start: 11/17/20 15:36 Freq: Status: Active Protocol: Document 11/17/20 15:38 HH (Rec: 11/17/20 16:31 [email or web address]) Ankle and Foot Goniometric Range of Motion Ankle and Foot Right Active Ankle/Foot ROM WFL Yes Testing Position Supine Dorsiflexion with Knee Flexed 17 Dorsiflexion with Knee Extended 12 Plantarflexion 44 Inversion 40 Eversion 27 Left Active Ankle/Foot ROM WFL No Testing Position Supine Dorsiflexion with Knee Flexed 10 Dorsiflexion with Knee Extended 6 Plantarflexion 25 Inversion 24 Eversion 22 Comments pain with inversion and eversion Toe Range of Motion Toe Right Great Toe Toe ROM WFL Yes MTP Flexion Active (degrees) 55 MTP Extension Active (degrees) 35 Left Great Toe Toe ROM WFL No MTP Flexion Active (degrees) 35 MTP Extension Active (degrees) 30 PT-OP-M Strength Start: 11/17/20 15:36 Freq: Status: Active Protocol: Document 11/17/20 15:38 HH (Rec: 11/17/20 16:31 [email or web address]) Hip Strength Hip Manual Muscle Testing Right Flexion (L2) 5 Normal Extension (S1) 5 Normal Abduction 5 Normal Adduction 5 Normal Left Flexion (L2) 4 Good Extension (S1) 4 Good Abduction 4- Good- Adduction 4 Good Knee Strength Knee Manual Muscle Testing Right Flexion (S2) 5 Normal Extension (L3) 5 Normal Left Flexion (S2) 4 Good Extension (L3) 4 Good Ankle/Foot Strength Ankle and Foot Manual Muscle Testing Right Dorsiflexion (L4) 5 Normal Plantarflexion (S1) 5 Normal Inversion 5 Normal Eversion (S1) 5 Normal Left Dorsiflexion (L4) 5 Normal Plantarflexion (S1) 4- Good- Inversion 4- Good- Eversion (S1) 3 Fair Comments pain with eversion> inversion Toe Strength Toe Manual Muscle Testing Right Great Toe Flexion 5 Normal Extension 5 Normal Comments 5/10 for 2nd to 5th digit flexion and extension Left Great Toe Flexion 3+ Fair+ Extension 4+ Good+ Comments 3+/10 for 2nd to 5th digit flexion and extension PT-OP-Q Treatments Start: 11/17/20 15:36 Freq: Status: Active Protocol: Document 11/20/20 15:21 [facility] (Rec: 11/20/20 16:46 [facility] [id number]) Therapeutic Exercises Sitting Exercises BAP board Side left Equipment Used level2 Reps/Minutes 10 reps ea Comments fwd/bck, side, anticlockwise and clockwise Manual Therapy Treatment Soft Tissue Mobilization anterior tib Mobilization Type Myofascial Release,Rolling Intensity/Depth Moderate Body Position Supine scar tissue Body Location medial and lateral malleoli Mobilization Type Myofascial Release,Rolling, Strumming Intensity/Depth Moderate Body Position Supine Comments inferior and superior post tib. Mobilization Type Myofascial Release,Strumming plantar fascia Body Location left Mobilization Type Strumming Intensity/Depth Moderate Body Position Supine Taping 1 Body Location left medial and lateral ankle Treatment Focus edema reduction, scar mobilization Type of Tape kinesiotape Skin Inspection intact Comments 2 fan strips Self-Care/Home Management Treatment Education Patient Education Body Mechanics,Home Exercise Program,Joint Protection,Pain Management,Posture,Safety Other Education benefits of aquatic exercise; instructed in gentle aquatic ex that can be done in home pool PT-OP-T Assessment and Plan Start: 11/17/20 15:36 Freq: Status: Active Protocol: Document 11/20/20 15:21 [facility] (Rec: 11/20/20 16:46 [facility] [id number]) Physical Therapy Assessment Impairments Impairments Activity Tolerance,Balance, Functional Activities, Functional Mobility,Gait,Pain, Posture,ROM,Sensation,Soft Tissue Mobility,Strength Goals pain Impairment severe pain 9/10 Short Term Goal (STG) pt will be able to modify her daily activities by decreasing her steps count <82759 steps to allow recovery and healing process. Use of AD if needed STG Duration 4 weeks Snf Goal (LTG) pt will be able to tolerate > 57765 steps a day without pain >5/10 LTG Duration 10 weeks gait Impairment +VE trendelenburg sign with valgus moment during LLE stance phase Short Term Goal (STG) pt will show improved SL balance/ stability to be able to balance on 1 leg >15 seconds STG Duration 5 weeks Commercial Underwriter Goal (LTG) pt will show improved SL balance/ stability to normalize her gait without increase in pain >5/10 LTG Duration 10 weeks FAAM Impairment pt scores 29 Short Term Goal (STG) pt will score 40 or greater to improve her overall ankle mobility and strength STG Duration 5 weeks Commercial Underwriter Goal (LTG) pt will score 50 or greater to improve her overall ankle mobility and strength LTG Duration 10 weeks LEFS Impairment pt scores 22 Short Term Goal (STG) pt will score 35 or greater on LEFS to improve her functional mobility STG Duration 5 weeks Snf Goal (LTG) pt will score 45 or greater on LEFS to improve her functional mobility LTG Duration 10 weeks Assessment Summary Assessment Decrease swelling left ankle after treatment, tolerated STM and scar mobilization well; feel she will benefit from much more work on this. Also educated patien in the benefits of aquatic exercise and instructed in gentle ex can do in home pool; she demonstrated good understanding. Patient c/o mild inc pain with BAPS level 2. Trial kinesiotape, IFES, and cryocuff today. Physical Therapy Plan Frequency and Duration Frequency of Treatment 2x/Week Duration of Treatment 10 weeks Plan of Care Start Date 11/17/20 Plan of Care End Date 01/31/21 Therapeutic Interventions Therapeutic Interventions Aquatic Therapy,Balance Training,Gait Training,Home Exercise Program,Joint Mobilizations,Manual Therapy, Neuromuscular Re-education, Orthotic/Prosthetic Management ,Patient/Caregiver Education, Self-Care/Home Management, Sensory Integration,Soft Tissue Mobilization,Taping, Therapeutic Activities, Therapeutic Exercises Modalities Cold Pack/Ice Massage,Electric Stimulation,Hot Packs, Infrared Therapy,Traction- Mechanical,Ultrasound Next Visit Focus/Plan Next Note Type Treatment Note Next Visit Plan assess response to last session. Continue ROM ex, STM , scar massage. Initiate joint mob as indicated. Add short foot exercise. Continue patient education including shoewear (patient wearing Birkenstocks today), consider assistive device education.
--- NOTE | 2020-12-04 16:24 | PT.OTN ---
Current Diagnoses Primary osteoarthritis, left ankle and foot (12/04/20) Joint derangement, unspecified (12/04/20) Peroneal tendinitis, left leg (12/04/20) Physical Therapy Treatment Note PT-OP-A Visit Information Start: 11/17/20 15:36 Freq: Status: Active Protocol: Document 12/04/20 15:22 HH (Rec: 12/04/20 16:24 HH [id number]) Out-Patient Physical Therapy Visit Information Visit Information Visit Type Initial Evaluation Visit Note Doesn't tolerate compression or ice now, gets shooting pains within ankle. Visit Start Time 15:18 Visit Stop Time 16:11 Total Visit Minutes 53 Visit Number 3 Number of SERVICE COORDINATOR Visits 0 PT-OP-B Current Condition Start: 11/17/20 15:36 Freq: Status: Active Protocol: Document 11/20/20 15:21 [facility] (Rec: 11/20/20 16:46 [facility] [id number]) Current Condition History of Current Condition Onset Date 09/16/20 Current Complaints post op L ankle, difficulty in walking, significant pain History of Current Condition Shari is a 49 yo female here for rehab after her recent L ankle surgery on 09/16/20. Pt has had extensive and complicated ankle surgeries since last year. She initially was found to have a 2 cm ganglion cyst at medial ankle (behind medial malleoli) in late 2018, therefore she had a surgical removal of the cyst and decompression of the tarsal tunnel on 08/08/19 followed by a I &D on 09/04/19 followed by a course of wound care treatment d/t post surgical infection. Pt then had a course of PT ( to May, 2020) here but continued to have severe pain, weakness, limited ROM and sensation loss. Pt then decided to have another arthoscopic surgery 09/16/[address] Ca on her L lateral ankle d/t multiple bone spurs and scar tissues found in the entire ankle. Pt currently has no restriction but her severe pain 9/10 persists, along with limited ROM and strength. Prior Treatments and Tests PT here from Dec, 2019 to May, 2020 without significant improvements. Future Testing and Treatments Planned pt is taking hydrocodone for pain management PT-OP-C Subjective Start: 11/17/20 15:36 Freq: Status: Active Protocol: Document 12/04/20 15:22 HH (Rec: 12/04/20 16:24 [id number]) OP-PT Subjective Patient Comments Patient Comments I will have a f/u with surgeon on the week of December. I felt pretty good from last visit. But the pain is so bad as long as i put weight on it especially in the morning. PT-OP-G Mobility & Gait Start: 11/17/20 15:36 Freq: Status: Active Protocol: Document 11/17/20 15:38 HH (Rec: 11/17/20 16:31 [email or web address]) OP Gait Assessment Gait Deviations General Gait Pattern Antalgic,Decreased Stride Length,Decreased Feet Clearance Factors Limiting Gait Function Factors Limiting Gait Function Decreased Activity Tolerance, Decreased Strength,Limited Range of Motion,Pain,Poor Balance,Poor Safety Awareness Comments Gait Comments +ve tredelenburg sign on L, increase L valgus moment noted during stance phase PT-OP-H Neuro Start: 11/17/20 15:36 Freq: Status: Active Protocol: Document 11/17/20 15:38 HH (Rec: 11/17/20 16:31 [email or web address]) Sensation Evaluation Gross Sensation Gross Sensation Left LE Impaired Sensation Description Numbness,Tingling,Itching,Pain Location Details Left Ankle Light Touch Impaired Sharp/Dull Impaired Deep Pressure Impaired Hot/Cold Impaired Comments Summary Comments moderately decreased sensation to LT, pressure and pinpick for the entire plantar surface . mildly decreased sensation to LT pressure at lateral malleoli and medial malleoli. Deep Tendon Reflex & Clonus Assessment Deep Tendon Reflex Bilateral Achilles Deep Tendon Reflex 2+ Normal PT-OP-J Posture/Palpation/Skin Start: 11/17/20 15:36 Freq: Status: Active Protocol: Document 11/17/20 15:38 HH (Rec: 11/17/20 16:31 [email or web address]) Skin Assessment Circumference Measurement L ankle Location figure 8 ( above maleoli then 5th met head) Comments 22.5 inches R ankle Location figure 8 ( above maleoli then 5th met head) Comments 21 inches PT-OP-K Range of Motion Start: 11/17/20 15:36 Freq: Status: Active Protocol: Document 11/17/20 15:38 HH (Rec: 11/17/20 16:31 [email or web address]) Ankle and Foot Goniometric Range of Motion Ankle and Foot Right Active Ankle/Foot ROM WFL Yes Testing Position Supine Dorsiflexion with Knee Flexed 17 Dorsiflexion with Knee Extended 12 Plantarflexion 44 Inversion 40 Eversion 27 Left Active Ankle/Foot ROM WFL No Testing Position Supine Dorsiflexion with Knee Flexed 10 Dorsiflexion with Knee Extended 6 Plantarflexion 25 Inversion 24 Eversion 22 Comments pain with inversion and eversion Toe Range of Motion Toe Right Great Toe Toe ROM WFL Yes MTP Flexion Active (degrees) 55 MTP Extension Active (degrees) 35 Left Great Toe Toe ROM WFL No MTP Flexion Active (degrees) 35 MTP Extension Active (degrees) 30 PT-OP-M Strength Start: 11/17/20 15:36 Freq: Status: Active Protocol: Document 11/17/20 15:38 (Rec: 11/17/20 16:31 [email or web address]) Hip Strength Hip Manual Muscle Testing Right Flexion (L2) 5 Normal Extension (S1) 5 Normal Abduction 5 Normal Adduction 5 Normal Left Flexion (L2) 4 Good Extension (S1) 4 Good Abduction 4- Good- Adduction 4 Good Knee Strength Knee Manual Muscle Testing Right Flexion (S2) 5 Normal Extension (L3) 5 Normal Left Flexion (S2) 4 Good Extension (L3) 4 Good Ankle/Foot Strength Ankle and Foot Manual Muscle Testing Right Dorsiflexion (L4) 5 Normal Plantarflexion (S1) 5 Normal Inversion 5 Normal Eversion (S1) 5 Normal Left Dorsiflexion (L4) 5 Normal Plantarflexion (S1) 4- Good- Inversion 4- Good- Eversion (S1) 3 Fair Comments pain with eversion> inversion Toe Strength Toe Manual Muscle Testing Right Great Toe Flexion 5 Normal Extension 5 Normal Comments 5/10 for 2nd to 5th digit flexion and extension Left Great Toe Flexion 3+ Fair+ Extension 4+ Good+ Comments 3+/10 for 2nd to 5th digit flexion and extension PT-OP-Q Treatments Start: 11/17/20 15:36 Freq: Status: Active Protocol: Document 12/04/20 15:22 (Rec: 12/04/20 16:24 [id number]) Therapeutic Exercises Supine Exercises ankle DF Side left Equipment Used belt Comments for HEP ankle PF Supine Exercise Name hand assisted stretch Side left Comments for HEP ankle INV Supine Exercise Name hand assisted stretch and EV Side left Comments for HEP Sitting Exercises seated heel raise and toe raise Side bilateral Reps/Minutes 10x1 Comments for HEP BAP board Side left Equipment Used level2 Reps/Minutes 10 reps ea Comments fwd/bck, side, anticlockwise and clockwise ankle saxman Side left Comments for HEP Manual Therapy Treatment Soft Tissue Mobilization anterior tib Mobilization Type Myofascial Release,Rolling Intensity/Depth Moderate Body Position Supine scar tissue Body Location medial and lateral malleoli Mobilization Type Myofascial Release,Rolling, Strumming Intensity/Depth Moderate Body Position Supine Comments inferior and superior post tib. Mobilization Type Myofascial Release,Strumming Manual Traction calcaneal Details traction and lateral and medial glide Body Position Supine Reps/Duration 10 sec hold x5 PT-OP-T Assessment and Plan Start: 11/17/20 15:36 Freq: Status: Active Protocol: Document 12/04/20 15:22 HH (Rec: 12/04/20 16:24 HH [id number]) Physical Therapy Assessment Goals pain Impairment severe pain 9/10 Short Term Goal (STG) pt will be able to modify her daily activities by decreasing her steps count <14224 steps to allow recovery and healing process. Use of AD if needed STG Duration 4 weeks Burrer Operator Goal (LTG) pt will be able to tolerate > 24341 steps a day without pain >5/10 LTG Duration 10 weeks gait Impairment +VE trendelenburg sign with valgus moment during LLE stance phase Short Term Goal (STG) pt will show improved SL balance/ stability to be able to balance on 1 leg >15 seconds STG Duration 5 weeks Burrer Operator Goal (LTG) pt will show improved SL balance/ stability to normalize her gait without increase in pain >5/10 LTG Duration 10 weeks FAAM Impairment pt scores 29 Short Term Goal (STG) pt will score 40 or greater to improve her overall ankle mobility and strength STG Duration 5 weeks Burrer Operator Goal (LTG) pt will score 50 or greater to improve her overall ankle mobility and strength LTG Duration 10 weeks LEFS Impairment pt scores 22 Short Term Goal (STG) pt will score 35 or greater on LEFS to improve her functional mobility STG Duration 5 weeks Burrer Operator Goal (LTG) pt will score 45 or greater on LEFS to improve her functional mobility LTG Duration 10 weeks Assessment Summary Assessment pt reports feeling good with cryocuff and deep tissue mob on L foot from last time. This session focused on manual therapy, along with introduction of non -WB stretching and strnegthening ex. Will review and check next session for her tolerance. Physical Therapy Plan Frequency and Duration Frequency of Treatment 2x/Week Duration of Treatment 10 weeks Plan of Care Start Date 11/17/20 Plan of Care End Date 01/31/21 Therapeutic Interventions Therapeutic Interventions Aquatic Therapy,Balance Training,Gait Training,Home Exercise Program,Joint Mobilizations,Manual Therapy, Neuromuscular Re-education, Orthotic/Prosthetic Management ,Patient/Caregiver Education, Self-Care/Home Management, Sensory Integration,Soft Tissue Mobilization,Taping, Therapeutic Activities, Therapeutic Exercises Modalities Cold Pack/Ice Massage,Electric Stimulation,Hot Packs, Infrared Therapy,Traction- Mechanical,Ultrasound Next Visit Focus/Plan Next Note Type Treatment Note Next Visit Plan assess response to last session. Continue ROM ex, STM , scar massage. Initiate joint mob as indicated. Add short foot exercise. Continue patient education including shoewear (patient wearing Birkenstocks today), consider assistive device education.
--- NOTE | 2021-01-22 13:11 | PT.OPDS ---
Current Diagnoses Primary osteoarthritis, left ankle and foot (12/04/20) Joint derangement, unspecified (12/04/20) Peroneal tendinitis, left leg (12/04/20) Visit Care Team Role Provider Type Brent Joiner MD Family Provider Physician Primary Care Provider Specialty: Internal Medicine Address: [address] [place] [address], [facility] Email: [email or web address] Roscoe Ca DPM Attending Provider Non-Staff Referring Provider Specialty: Medical Address: [address] [place] [address], [facility] Fax: Email: Visit Number Visit Number 08/06 Discharge Summary PT-OP-T Assessment and Plan Start: 11/17/20 15:36 Freq: Status: Active Protocol: Document 01/22/21 13:10 (Rec: 01/22/21 13:11 [email or web address]) Physical Therapy Plan Discharge Physical Therapy Discharge Reasons No Longer Attending PT Discharge Comments Pt has not returned to PT since her 2 nd tx session. DC from PT today
== END 2021-02-19 13:13 | disposition home or self-care (01) ==
LOC: PHYS 15:15
PROVIDERS: Family Provider Internal Medicine; PCP Internal Medicine; Referring Provider Podiatrist; Visit Provider Podiatrist
DX: M24.9 Joint derangement, unspecified (principal); M19.072 Primary osteoarthritis, left ankle and foot; M76.72 Peroneal tendinitis, left leg
CPT/HCPCS: 97014; 97110; 97140; 97163; 97535; G0283

== ENCOUNTER → 2022-07-12 13:23 | Outpatient (CLI) | payer BC, SELFPAY ==
[2020-06-19 13:55] VITALS: BMI 33.4
[2022-07-12 14:11] LABS: Add Manual Diff / Slide Review NO; Basophils Absolute Auto 0 /uL (0-100); Basophils Percent Auto 0.4 % (0-2); Eosinophils Absolute Auto 100 /uL (0-450); Eosinophils Percent Auto 0.8 % (2-4); Hematocrit 38.3 % (36-46); Hemoglobin 12.7 g/dL (12.0-16.0); Lymphocytes Absolute Auto 1500 /uL (1100-4500); Lymphocytes Percent Auto 14.6 % (25-40); Mean Corpuscular HGB Conc 33.3 % (30-36); Mean Corpuscular Hemoglobin 28.9 PG (26-34); Mean Corpuscular Volume 86.9 fL (80-100); Monocytes Absolute Auto 700 /uL (0-900); Monocytes Percent Auto 6.3 % (3-14); Neutrophils Absolute Auto 8100 /uL (1500-7000); Neutrophils Percent Auto 77.9 % (50-75); Platelet Count 342 X10^3/uL (150-400); Red Cell Distribution Width 13.7 % (11.6-14.8); White Blood Cell Count 10.4 X10^3/uL (4.5-11.0)
[2022-07-12 14:20] LABS: Alanine Aminotransferase 23 IU/L (<35); Albumin 4.2 g/dL (3.5-5.0); Albumin Globulin Ratio 1.4 (1.0-2.8); Alkaline Phosphatase 73 U/L (38-126); Aspartate Aminotransferase 27 IU/L (14-36); Bilirubin Total 0.5 mg/dL (0.2-1.3); Blood Urea Nitrogen 11 mg/dL (7-17); C-Reactive Protein Quant < 0.5 mg/dL (<1.0); Calcium 9.2 mg/dL (8.4-10.2); Carbon Dioxide 27 mmol/L (22-32); Chloride 103 mmol/L (98-107); Estimated Glomerular Filt Rate > 60 mL/min (>60); Globulin 2.9 g/dL (1.7-4.1); Glucose 115 mg/dL (70-100); HEMOLYSIS < 15 (0-50); Potassium 3.8 mmol/L (3.4-5.1); Rheumatoid Factor < 8.6 IU/mL (<12.0); Sodium 139 mmol/L (137-145); Total Protein 7.1 g/dL (6.3-8.2)
[2022-07-12 14:33] LABS: Free T4, Direct Thyroxine 1.17 ng/dL (0.78-2.19)
[2022-07-12 14:47] LABS: Thyroid Stimulating Hormone 0.209 uIU/mL (0.47-4.68)
[2022-07-12 19:54] LABS: Erythrocyte Sedimentation Rate 9 MM/HR (0-20)
[2022-07-16 19:04] LABS: ANA Screen, IFA Positive (.)
== END ==
PROVIDERS: Family Provider Internal Medicine; PCP Internal Medicine; Referring Provider Internal Medicine; Visit Provider Internal Medicine
DX: F11.20 Opioid dependence, uncomplicated (principal); G89.4 Chronic pain syndrome; N95.1 Menopausal and female climacteric states; Z79.899 Other long term (current) drug therapy
CPT/HCPCS: 36415; 80053; 84439; 84443; 85025; 85651; 86038; 86140; 86430

== ENCOUNTER → 2023-02-15 08:03 | Outpatient (CLI) | payer BC, SELFPAY ==
[2022-08-09 11:36] VITALS: BMI 33.4
--- NOTE | 2023-02-15 | DI.MG.S_ITS ---
BILATERAL DIGITAL SCREENING MAMMOGRAM 3D/2D WITH CAD: 02/15/2023 CLINICAL: Routine screening. Family history of breast cancer. Comparison is made to exams dated: 09/29/2017 mammogram, 02/19/2016 mammogram, and 06/27/2014 mammogram - [facility]. Both breasts are heterogeneously dense, which may obscure small masses (category c / 51-75% glandular tissue). Current study was also evaluated with a Computer Aided Detection (CAD) system. No significant masses, calcifications, or other findings are seen in either breast. There has been no significant interval change. IMPRESSION: NEGATIVE There is no mammographic evidence of malignancy. A 1 year screening mammogram is recommended. Based on the Tyrer Cuzick model (a risk assessment model) the patient's lifetime risk is 12.2% and her 10 year risk is 3.3%. According to the ACR, ACS, and NCCN guidelines, an annual breast MRI exam along with mammogram is recommended if the patient's lifetime risk is 20% or greater. This exam was interpreted at Station ID: [id number]. NOTE: For mammograms, a report in lay terms will be sent to the patient. Approximately 15% of breast malignancies will not be visualized mammographically. In the management of a palpable breast mass, a negative mammogram must not discourage biopsy of a clinically suspicious lesion. Electronically Signed By: Annel crowley/anca:02/15/2023 11:33:26 letter sent: Normal Exam ACR BI-RADS Category 1: Negative [id number]
== END ==
PROVIDERS: Family Provider Internal Medicine; PCP Internal Medicine; Referring Provider Internal Medicine; Visit Provider Internal Medicine
DX: Z12.31 Encounter for screening mammogram for malignant neoplasm of breast (principal); Z80.3 Family history of malignant neoplasm of breast
CPT/HCPCS: 77063; 77067

== ENCOUNTER → 2023-06-02 10:09 | Outpatient (CLI) | payer BC, SELFPAY ==
[2022-08-09 11:36] VITALS: BMI 33.4
[2023-06-02 11:35] LABS: Alanine Aminotransferase 34 IU/L (<35); Albumin 4.2 g/dL (3.5-5.0); Albumin Globulin Ratio 1.4 (1.0-2.8); Alkaline Phosphatase 118 U/L (38-126); BUN Creatinine Ratio 22.4 (6-22); Bilirubin Total 0.4 mg/dL (0.2-1.3); Blood Urea Nitrogen 15 mg/dL (7-17); Calcium 9.6 mg/dL (8.4-10.2); Carbon Dioxide 25 mmol/L (22-32); Chloride 104 mmol/L (98-107); Estimated Glomerular Filt Rate > 60 mL/min (>60); Globulin 3.1 g/dL (1.7-4.1); Glucose 89 mg/dL (70-100); HEMOLYSIS < 15 (0-50); Potassium 4.1 mmol/L (3.4-5.1); Sodium 138 mmol/L (137-145); Total Protein 7.3 g/dL (6.3-8.2)
[2023-06-02 12:54] LABS: Free T3, Triiodothyronine Free 4.47 pg/mL (2.77-5.27); Free T4, Direct Thyroxine 1.19 ng/dL (0.78-2.19)
[2023-06-02 13:07] LABS: Thyroid Stimulating Hormone 0.981 uIU/mL (0.47-4.68)
[2023-06-03 15:10] LABS: Aspartate Aminotransferase 42 IU/L (14-36)
== END ==
LOC: LAB 10:10
PROVIDERS: Family Provider Internal Medicine; PCP Internal Medicine; Referring Provider Internal Medicine; Visit Provider Internal Medicine
DX: N95.1 Menopausal and female climacteric states (principal); E05.90 Thyrotoxicosis, unspecified without thyrotoxic crisis or storm; E04.9 Nontoxic goiter, unspecified
CPT/HCPCS: 36415; 80053; 84439; 84443; 84481

== ENCOUNTER → 2023-06-03 13:37 | Outpatient (CLI) | payer BC, SELFPAY ==
[2022-08-09 11:36] VITALS: BMI 33.4
--- NOTE | 2023-06-03 13:38 | DI.US.S_ITS ---
PROCEDURE: US THYROID INDICATIONS: right thyroid enlargement TECHNIQUE: Real-time scanning was performed of the thyroid gland, with image documentation. COMPARISON: None. FINDINGS: Right: Thyroid lobe measures 8.5 x 3.2 x 3.6 cm, and is diffusely heterogeneous in echotexture. Left: Thyroid lobe measures 7.8 x 3.1 x 2.5 cm, and is diffusely heterogeneous in echotexture. Isthmus: 6.5 cm thick. IMPRESSION: Enlarged diffusely heterogeneous thyroid gland without focal defined mass. Appearance is consistent with goiter. Dictated by: Brooklyn Jordan M.D. on 06/03/2023 at 17:38 Approved by: Brooklyn Jordan M.D. on 06/03/2023 at 17:38
== END ==
LOC: US 13:37
PROVIDERS: Family Provider Internal Medicine; PCP Internal Medicine; Referring Provider Internal Medicine; Visit Provider Internal Medicine
DX: N95.1 Menopausal and female climacteric states (principal); E05.90 Thyrotoxicosis, unspecified without thyrotoxic crisis or storm; E04.9 Nontoxic goiter, unspecified
CPT/HCPCS: 76536

== ENCOUNTER → 2023-08-09 16:24 | Outpatient (CLI) | payer BC, SELFPAY ==
[2022-08-09 11:36] VITALS: BMI 33.4
[2023-08-10 23:24] LABS: Thyroid Peroxidase Antibodies 178 IU/mL (0-34)
== END ==
PROVIDERS: Family Provider Internal Medicine; PCP Internal Medicine; Referring Provider Obstetrics & Gynecology; Visit Provider Obstetrics & Gynecology
DX: E04.9 Nontoxic goiter, unspecified (principal)
CPT/HCPCS: 36415; 86376

== ENCOUNTER → 2023-10-26 13:17 | Outpatient (CLI) | payer BC, SELFPAY ==
[2022-08-09 11:36] VITALS: BMI 33.4
[2023-10-26 14:36] LABS: Alanine Aminotransferase 21 IU/L (<35); Albumin 4.5 g/dL (3.5-5.0); Albumin Globulin Ratio 1.6 (1.0-2.8); Alkaline Phosphatase 79 U/L (38-126); Aspartate Aminotransferase 26 IU/L (14-36); BUN Creatinine Ratio 21.6 (6-22); Bilirubin Total 0.5 mg/dL (0.2-1.3); Blood Urea Nitrogen 16 mg/dL (7-17); Calcium 9.2 mg/dL (8.4-10.2); Carbon Dioxide 27 mmol/L (22-32); Chloride 104 mmol/L (98-107); Cholesterol 226 mg/dL (140-199); Estimated Glomerular Filt Rate > 60 mL/min (>60); Globulin 2.8 g/dL (1.7-4.1); Glucose 105 mg/dL (70-100); HEMOLYSIS < 15 (0-50); Potassium 4.4 mmol/L (3.4-5.1); Sodium 137 mmol/L (137-145); Total Protein 7.3 g/dL (6.3-8.2); Triglycerides 155 mg/dL (35-150)
[2023-10-26 15:01] LABS: HDL Cholesterol 118 mg/dL (40-60); LDL Cholesterol Calculated 77 mg/dL (<100)
== END ==
PROVIDERS: Family Provider Internal Medicine; PCP Internal Medicine; Referring Provider Internal Medicine; Visit Provider Internal Medicine
DX: Z13.6 Encounter for screening for cardiovascular disorders (principal); Z13.1 Encounter for screening for diabetes mellitus; Z13.220 Encounter for screening for lipoid disorders
CPT/HCPCS: 36415; 80053; 80061

== ENCOUNTER → 2024-06-27 14:28 | Outpatient (CLI) | payer BC, SELFPAY ==
[2022-08-09 11:36] VITALS: BMI 33.4
--- NOTE | 2024-06-27 14:34 | DI.CT.S_ITS ---
PROCEDURE: CT ANKLE LEFT WITHOUT INDICATIONS: NONUNION OF SUBTALAR ARTHRODESIS, LEFT TECHNIQUE: Noncontrast 1-1.5 mm axial sections acquired from above the tibiotalar joint to the bottom of the calcaneus, with coronal and sagittal reformats. COMPARISON: [facility], CR, XR ANKLE LT MIN 3V, 09/28/2019, 12:55. [facility], CR, XR ANKLE LT MIN 3V, 06/27/2024, 14:47. FINDINGS: Image quality: Excellent. Bones: Patient is status post prior subtalar fusion with [address]. There is increased radiolucencies surrounding fixation screws traversing subtalar joint suggestive of hardware loosening. There is also fracture more posterior fixation screw at the level of subtalar joint. Moderate to severe midfoot and hindfoot joint osteoarthritic changes are seen most notably involving subtalar joint. There is no significant bony union at subtalar joint with well corticated margin concerning for nonunion and hardware failure. No acute fracture or dislocation. No suspicious intraosseous lesions. Well-defined plantar and dorsal calcaneal enthesophytes are seen. Soft tissues: Small tibiotalar joint effusion is seen, no calcified intra-articular loose bodies. No discrete soft tissue mass or drainable fluid collection. No full-thickness extensor, flexor, or peroneus tendon ruptures. No abnormal soft tissue calcifications. Achilles tendon is intact. The visualized plantar fascia is within normal limits. IMPRESSION: 1. Prior subtalar fusion with broken fixation screw and hardware loosening as described above. 2. 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 No acute fracture or dislocation. No suspicious bony lesions. 3. No full-thickness ankle tendon rupture. No soft tissue mass or drainable fluid collection. Small tibiotalar joint effusion, no calcified loose bodies. Dictated by: Ben Abdullahi M.D. on 06/29/2024 at 10:16 Approved by: Ben Abdullahi M.D. on 06/29/2024 at 10:27
--- NOTE | 2024-06-27 14:35 | DI.RAD.S_ITS ---
PROCEDURE: XR ANKLE LT MIN 3V INDICATIONS: NONUNION OF SUBTALAR ARTHRODESIS, LEFT TECHNIQUE: 3 views of the ankle were acquired. COMPARISON: [facility], CR, XR ANKLE LT MIN 3V, 09/28/2019, 12:55. FINDINGS: Bones: There are no osseous abnormalities. Tibiotalar and talocalcaneal joints: 2 screws provide arthrodesis across the talocalcaneal joint. Anatomic alignment. The joint is narrowed but there is no evidence of osseous fusion across the joint. Screw heads are slightly proud and partially project into the overlying soft tissues Mild ankle mortise degeneration appreciated with possible small loose bodies in the ankle mortise Soft tissues: Mild plantar soft tissue swelling noted with calcification Achilles tendon insertion. IMPRESSION: Talocalcaneal arthrodesis anatomic alignment. Fusion is incomplete. Please see above. Mild ankle degeneration with possible small loose bodies in the ankle mortise. Dictated by: Brent Wade M.D. on 06/28/2024 at 10:40 Approved by: Brent Wade M.D. on 06/28/2024 at 10:43
== END ==
LOC: CT 14:33
PROVIDERS: Family Provider Internal Medicine; PCP Internal Medicine; Referring Provider Podiatrist Foot Surgery; Visit Provider Podiatrist Foot Surgery
DX: M96.0 Pseudarthrosis after fusion or arthrodesis (principal); T84.213A Breakdown (mechanical) of internal fixation device of bones of foot and toes, initial encounter; T84.223A Displacement of internal fixation device of bones of foot and toes, initial encounter; M25.471 Effusion, right ankle
CPT/HCPCS: 73610; 73700

== ENCOUNTER → 2025-04-20 13:47 | Outpatient (CLI) | payer BC, SELFPAY ==
[2022-08-09 11:36] VITALS: BMI 33.4
--- NOTE | 2025-04-20 13:50 | DI.MG.S_ITS ---
MM screening mammo BI: 04/20/2025. BI-RADS: 1 CLINICAL: 54-year old female for bilateral screening mammogram. Tyrer-Cuzick lifetime risk of 18.9%. No personal or first-degree family history of breast cancer. Current reported family history of breast cancer: maternal grandmother. PRIOR EXAMS 02/15/2023, 09/29/2017, 02/19/2016. MAMMOGRAPHY TECHNIQUE: 2D and 3D (tomosynthesis) digital mammographic views obtained, with additional images as needed for full coverage. Current study was also evaluated with a Computer Aided Detection (CAD) system. DENSITY C. The breasts are heterogeneously dense, which may obscure small masses. MAMMOGRAPHY FINDINGS Bilateral: No suspicious mass, asymmetry, microcalcification, or other abnormality seen. IMPRESSION: * No evidence of malignancy. RECOMMENDATIONS Bilateral * Annual screening mammography. OVERALL ASSESSMENT CATEGORY BI-RADS-1: Negative. [employer] recommends annual screening mammography beginning at age 40 for women with average risk of breast cancer. ELECTRONICALLY SIGNED: Pietro Rainey M.D. on 04/22/2025 at 10:17:44 AM PT Interpreting Station ID: [id number]
== END ==
LOC: MAMMO 13:48
PROVIDERS: PCP Internal Medicine; Referring Provider Internal Medicine; Visit Provider Internal Medicine
DX: Z12.31 Encounter for screening mammogram for malignant neoplasm of breast (principal); R92.333 Mammographic heterogeneous density, bilateral breasts; Z80.3 Family history of malignant neoplasm of breast
CPT/HCPCS: 77063; 77067